=== PATIENT | female | born 1945 | race Caucasian/White ===

== ENCOUNTER 2017-08-11 09:07 | Emergency (ER) | payer BC, MEDICARE, SELFPAY | END 2017-08-11 10:06 | disposition home or self-care (01) | PROVIDERS: Family Provider Internal Medicine Adolescent Medicine; PCP Internal Medicine Adolescent Medicine; Referring Provider Internal Medicine Adolescent Medicine | DX: M10.9 Gout, unspecified (principal); I10 Essential (primary) hypertension; Z85.828 Personal history of other malignant neoplasm of skin; Z86.19 Personal history of other infectious and parasitic diseases; Z79.82 Long term (current) use of aspirin; Z79.899 Other long term (current) drug therapy | CPT/HCPCS: 99201 ==

== ENCOUNTER → 2017-10-04 12:05 | Outpatient (CLI) | payer BC, MEDICARE, SELFPAY ==
--- NOTE | 2017-10-04 12:18 | XR_ITS ---
XR hip RT 2-3V w/pelvis HISTORY: Right hip pain ITS.REASON: OA BILAT HIP, TROCHANTERIC BURSITIS ORDERING PHYSICIAN: Dang Arora PATIENT AGE: 72 years COMPARISON: None FINDINGS: No fracture or dislocation is evident. No significant degenerative change. No lytic or blastic change. Unremarkable soft tissues IMPRESSION: Negative right hip
--- NOTE | 2017-10-04 12:18 | XR_ITS ---
XR hip LT 2-3V w/pelvis HISTORY: Left hip pain ITS.REASON: OA BILAT HIP, TROCHANTERIC BURSITIS ORDERING PHYSICIAN: Dang Arora PATIENT AGE: 72 years COMPARISON: None FINDINGS: There is slight decrease in the joint space medially with minimal osteosclerosis of the acetabulum consistent with mild osteoarthritis. No fracture or dislocation. No lytic or blastic change. IMPRESSION: Mild osteoarthritis of the left hip
== END ==
PROVIDERS: PCP Internal Medicine Adolescent Medicine; Visit Provider Nurse Practitioner Family
DX: M70.61 Trochanteric bursitis, right hip (principal); M16.0 Bilateral primary osteoarthritis of hip
CPT/HCPCS: 73502

== ENCOUNTER → 2017-10-22 11:27 | Outpatient (CLI) | payer BC, MEDICARE, SELFPAY ==
--- NOTE | 2017-10-22 11:37 | XR_ITS ---
XR humerus RT, XR shoulder RT min 2V Ordering Physician: Mark Lozada MD Patient Age: 72 years: Female HISTORY: Pain and swelling right upper extremity. Pain 3 days. TECHNIQUE: 2 view humerus COMPARISON :None RIGHT HUMERUS 2 view The humerus is intact. The shaft is well visualized and normal. Today's image set includes a left shoulder... With this the humeral head and neck appear intact with only scant degenerative change. Soft tissues unremarkable ==IMPRESSION: ...... Left humerus in intact. No fracture RIGHT SHOULDER region . no fracture nor dislocation right shoulder. The glenohumeral joint and AC joint appear intact. Humeral head and neck with no fracture. Small round lucent area likely reflects subchondral cystic changes at the base/V humeral head. These reflect minor early degenerative changes and impingement upper normal markings. Accentuated markings Throughout the right lung with a most likely reflecting suboptimal inspiration rather than mild CHF ==IMPRESSION...... No acute fracture or subluxation right shoulder. Minor degenerative changes
--- NOTE | 2017-10-22 11:44 | NVE_ITS ---
Venous Exam Indications: 729.5 Pain in limb. 729.81 Swelling of limb. IMPRESSIONS No evidence of deep or superficial vein thrombosis involving the veins of the right upper extremity History: Right upper extremity pain. Swelling in the right upper extermity. PMH: Deep vein thrombosis. Pulmonary embolus. Hx of DVT/PE in 2006. Currently taking Plavix daily. Right upper extremity venous duplex. Doppler flow study including spectral analysis, color and diaz scale imaging. Location: Vascular laboratory. Patient status: Outpatient. Tables: Venous flow and imaging: + + + Location Flow properties + + + Right internal jugular Normal phasicity; spontaneous; compressible + + + Right subclavian Normal phasicity; spontaneous; normal augmentation; compressible + + + Right axillary Normal phasicity; spontaneous; normal augmentation; compressible + + + Right brachial Normal phasicity; spontaneous; normal augmentation; compressible + + + Right cephalic Normal phasicity; spontaneous; normal augmentation; compressible + + + Right basilic Normal phasicity ; spontaneous; normal augmentation; compressible + + + Right radial Compressible + + + Right ulnar Compressible + + + (Report amended ) Electronically signed by: Macario Aguilera [id number]
== END ==
PROVIDERS: PCP Internal Medicine Adolescent Medicine; Visit Provider Internal Medicine Adolescent Medicine
DX: M79.601 Pain in right arm (principal); M79.89 Other specified soft tissue disorders
CPT/HCPCS: 73030; 73060; 93971

== ENCOUNTER → 2017-12-18 08:43 | Outpatient (CLI) | payer BC, MEDICARE, SELFPAY ==
--- NOTE | 2017-12-18 09:05 | MR_ITS ---
MR head/brain wo/w con HISTORY: Dizziness, tinnitus, bilateral ear hearing loss left worse than right ITS.REASON: to include head and temporal bones/ r/o neuroma ORDERING PHYSICIAN: Isaiah Campos MD PATIENT AGE: 72 years COMPARISON: 02/25/2014 TECHNIQUE: Standard multiplanar multiecho sequences are performed without and with gadolinium enhancement . The exam is supplemented with thin section axial T2-weighted images along with thin section axial and coronal pre and post enhanced T1 weighted images. FINDINGS: No midline shift, mass effect, intracranial hemorrhage, or hydrocephalus. Nonspecific periventricular and subcortical T2 white matter hyperintensities consistent mild ischemic gliotic change from microvascular disease. No evidence of acute infarction. No enhancing lesions are evident. The pituitary, optic chiasm, corpus callosum, and craniocervical junction is unremarkable.. Dedicated images of the cerebellopontine angle show unremarkable nerve VII and VIII complexes. No CP angle mass evident. No abnormal enhancement at the CP angle. There is a small amount of fluid signal intensity once again noted in the right petrous bone as previously described and may represent a small cholesterol granuloma. No abnormal enhancement is evident at this region. This is not significantly changed. No sinus air-fluid level or mastoid effusion is evident. IMPRESSION: 1. No evidence of cerebellopontine angle mass or abnormal enhancement. 2. Small loculated fluid collection in the right petrous bone similar to the previous exam measuring 14 x 8 mm. Possibly related to cholesterol granuloma of the petrous bone as an incidental finding. 3. Essentially negative MRI of the brain without and with contrast with attention to the cerebellopontine angles
== END ==
PROVIDERS: Family Provider Internal Medicine Adolescent Medicine; PCP Internal Medicine Adolescent Medicine; Visit Provider Otolaryngology
DX: R42 Dizziness and giddiness (principal); H93.19 Tinnitus, unspecified ear
CPT/HCPCS: 36415; 70553; 80050; 82565; 84520; A9576

== ENCOUNTER → 2018-03-04 09:07 | Outpatient (CLI) | payer BC, MEDICARE, SELFPAY ==
--- NOTE | 2018-03-04 09:08 | CI_ITS ---
Cerebrovascular Exam Indications: 780.4 Dizziness and giddiness. 780.2 Syncope and collapse. IMPRESSIONS 1. The bilateral vertebral arteries are patent with normal antegrade flow. 2. Study suggests less than 20% stenosis involving the right internal carotid artery and the left internal carotid artery. History: Coronary artery disease. Risk factors: Hypertension. Hyperlipidemia. Carotid duplex study. Complete study and Doppler flow study including spectral analysis, color and diaz scale imaging. Height: Height: 175.3cm. Height: 69in. Weight: Weight: 88.9kg. Weight: 195.6lb. Body mass index: BMI: 28.9kg/m^2. Body surface area: BSA: 2.1m^2. Location: Vascular laboratory. Patient status: Outpatient. Tables: Arterial flow: + +--------+--------+ Location V sys V ed + +--------+--------+ Right CCA - proximal 66.8cm/s 11.8cm/s + +--------+--------+ Right CCA - distal 63.6cm/s 15.7cm/s + +--------+--------+ Right ECA 93.5cm/s -------- + +--------+--------+ Right ICA - proximal 61.3cm/s 18.1cm/s + +--------+--------+ Right ICA - mid 56.9cm/s 18.3cm/s + +--------+--------+ Right ICA - distal 73.9cm/s 25.1cm/s + +--------+--------+ Right vertebral 43.2cm/s -------- + +--------+--------+ Left CCA - proximal 67.6cm/s 15.7cm/s + +--------+--------+ Left CCA - distal 70.7cm/s 22cm/s + +--------+--------+ Left ECA -89cm/s -------- + +--------+--------+ Left ICA - proximal 48.2cm/s 13.3cm/s + +--------+--------+ Left ICA - mid 56.2cm/s 19.1cm/s + +--------+--------+ Left ICA - distal 80.9cm/s 28.1cm/s + +--------+--------+ Left vertebral 63.6cm/s -------- + +--------+--------+ Velocity ratios: + + + + + + Right, V sys Right, V ed Left, V sys Left, V ed + + + + + + Max ICA/dist CCA 1.16 1.6 1.14 1.28 + + + + + + (Report amended ) Electronically signed by: Aki Donovan [id number]
== END ==
PROVIDERS: Family Provider Internal Medicine Adolescent Medicine; PCP Internal Medicine Adolescent Medicine; Visit Provider Internal Medicine
DX: R06.09 Other forms of dyspnea (principal); R09.89 Other specified symptoms and signs involving the circulatory and respiratory systems; R94.31 Abnormal electrocardiogram [ECG] [EKG]; I20.9 Angina pectoris, unspecified; Z95.5 Presence of coronary angioplasty implant and graft; R42 Dizziness and giddiness; I25.118 Atherosclerotic heart disease of native coronary artery with other forms of angina pectoris
CPT/HCPCS: 93880

== ENCOUNTER → 2018-03-11 07:07 | Outpatient (CLI) | payer BC, MEDICARE, SELFPAY ==
--- NOTE | 2018-03-11 07:08 | NM_ITS ---
History and Indications: Coronary artery disease previous ventricular cystectomy, hypertension, hyperlipidemia, family history, chest pain, shortness of breath, fatigue and abnormal EKG. Procedure: Patient received a 0.4 mg of Lexiscan, resting heart rate was 57 bpm, resting blood pressure 115/67, with Lexiscan maximum heart rate achieved was 88 bpm which is less than 85% of the maximum predicted heart rate and a blood pressure was 111/68. With Lexiscan patient under shortness of breath. Electrocardiogram: Resting electrocardiogram showed sinus bradycardia, with Lexiscan there is less than 1.[address] segment depression noted from the baseline EKG. The EKG portion of the Lexiscan Myoview is nondiagnostic. Cardiac stress and resting SPECT images: Cardiac stress and rest SPECT images were obtained using technetium 99 Myoview 30.4 mCi at stress and 10.2 mCi at rest. Gated SPECT further analysis of segmental wall motion and calculation of the ejection fraction also done. Cardiac stress and rest SPECT images show decreased tracer activity in the anterior and anteroseptal wall which improves on the resting images suggestive of reversible ischemia, computer derived ejection fraction is over 65% with no obvious regional wall motion abnormality, right ventricle is normal size and contractility. Conclusion: 1. The EKG portion of the Lexiscan Myoview is nondiagnostic. 2. Scintigraphic evidence of reversible ischemia involving the anteroseptal and inferior wall. Computer derived ejection fraction is over 65% with no obvious regional wall motion abnormality, right ventricle is normal size and contractility. 3. Abnormal Lexiscan Myoview study.
--- NOTE | 2018-03-11 10:27 | HMH.ITSHM ---
metoprolol plavix trostatin buprione synthyroid asa
== END ==
PROVIDERS: Family Provider Internal Medicine Adolescent Medicine; PCP Internal Medicine Adolescent Medicine; Visit Provider Internal Medicine
DX: R06.09 Other forms of dyspnea (principal); R42 Dizziness and giddiness; R09.89 Other specified symptoms and signs involving the circulatory and respiratory systems; R94.31 Abnormal electrocardiogram [ECG] [EKG]; I20.9 Angina pectoris, unspecified; I25.118 Atherosclerotic heart disease of native coronary artery with other forms of angina pectoris; Z95.5 Presence of coronary angioplasty implant and graft
CPT/HCPCS: 78452; 93017; A9502; J2785

== ENCOUNTER → 2018-03-22 11:25 | Outpatient (CLI) | payer BC, SELFPAY ==
[2018-03-22 12:35] LABS: Anion Gap 10.5 mEq/L (5-15); Blood Urea Nitrogen 22 mg/dL (7-18); Calcium 9.1 mg/dL (8.5-10.1); Carbon Dioxide 31 mmol/L (21.0-32.0); Chloride 105 mmol/L (98-107); Creatinine,Serum 1.57 mg/dL (0.55-1.02); Estimated Glomerular Filt Rate 32 ml/min (>60); GFR (African American) 39 ML/MIN (>60); Glucose 88 mg/dL (74-106); Potassium 4.5 mmoL/L (3.5-5.1); Sodium 142 mmol/L (136-145)
== END ==
PROVIDERS: Visit Provider Internal Medicine
DX: I51.9 Heart disease, unspecified (principal); R06.09 Other forms of dyspnea; R60.9 Edema, unspecified; I25.10 Atherosclerotic heart disease of native coronary artery without angina pectoris; G47.33 Obstructive sleep apnea (adult) (pediatric)
CPT/HCPCS: 36415; 80048

== ENCOUNTER → 2018-03-27 10:38 | Outpatient (CLI) | payer BC, SELFPAY ==
--- NOTE | 2018-03-27 10:41 | CA_ITS ---
PROCEDURE: 2-D M-mode and color Doppler study INDICATIONS FOR THE TEST: Chest pain COPD Heart Murmur Tobacco Smoking Palpitations Fatigue Syncope Edema+ Hypertension+Diabetes Mellitus Rheumatic Fever SOB RODRIGUEZ+Obesity Hyperlipidemia Family History HD Additional History CAD, CHASITY PATIENT INFORMATION HEIGHT: WEIGHT: GENDER: Female B/P: 2-D/M-MODE INTERPRETATION: 2-D MEASUREMENTS OBSERVED VALUES IN CMS Right Ventricular Dimension (RVDd) 2.6 Interventricular Septum (Thickness)(IVsd) 1.2 Left Ventricular Internal Dimensions(LVIDd) 5.6 Left Ventricular Posterior Wall (Thickness)(LVPWd) 1.0 Aortic Root 3.3 Aortic Cusp Separation 1.9 Left Atrial Dimensions (LAD) 3.6 2D 1. The left atrium is mildly enlarged, left ventricle is normal size, there is mild concentric left ventricular hypertrophy, visually estimated ejection fraction 55% with no obvious regional wall motion abnormality. 2. The right atrium and right ventricle are normal size and contractility. 3. The aortic valve is thickened and calcified leaflet can't display good mobility. 4. The mitral and tricuspid valvular grossly normal. 5. The pulmonic valve is poorly visualized. 6. No significant pericardial effusion noted. DOPPLER INTERROGATION: Doppler interrogation of the aortic, mitral and tricuspid valvular presence of trace aortic, mild mitral and tricuspid regurgitation, calculated right ventricular systolic pressure is 44 mmHg consistent with moderate pulmonary hypertension, grade 1 diastolic dysfunction seen with tissue Doppler evidence of raised left atrial pressure. CONCLUSION: 1. Mildly enlarged left atrium, normal left ventricular size, mild concentric left ventricular hypertrophy, visually estimated ejection fraction 55% with no obvious regional wall motion abnormality, grade 1 diastolic dysfunction seen with tissue Doppler evidence of raised left atrial pressure. 2. Thickened and calcified aortic valve without aortic stenosis, there is trace aortic insufficiency. 3. Mild mitral and tricuspid regurgitation, calculated right ventricular systolic pressure is 44 mmHg consistent with moderate pulmonary hypertension 4. No significant pericardial effusion noted.
== END ==
PROVIDERS: Family Provider Internal Medicine Adolescent Medicine; PCP Internal Medicine Adolescent Medicine; Visit Provider Internal Medicine Cardiovascular Disease
DX: I25.10 Atherosclerotic heart disease of native coronary artery without angina pectoris (principal)
CPT/HCPCS: 93306

== ENCOUNTER → 2018-03-29 12:43 | Outpatient (CLI) | payer BC, SELFPAY ==
[2018-03-29 14:46] LABS: Anion Gap 12.2 mEq/L (5-15); Blood Urea Nitrogen 22 mg/dL (7-18); Calcium 9.1 mg/dL (8.5-10.1); Carbon Dioxide 25 mmol/L (21.0-32.0); Chloride 106 mmol/L (98-107); Creatinine,Serum 1.35 mg/dL (0.55-1.02); Estimated Glomerular Filt Rate 39 ml/min (>60); GFR (African American) 47 ML/MIN (>60); Glucose 99 mg/dL (74-106); Potassium 4.2 mmoL/L (3.5-5.1); Sodium 139 mmol/L (136-145)
== END ==
PROVIDERS: Visit Provider Internal Medicine Cardiovascular Disease
DX: I51.9 Heart disease, unspecified (principal); I25.10 Atherosclerotic heart disease of native coronary artery without angina pectoris; R60.9 Edema, unspecified; R06.09 Other forms of dyspnea
CPT/HCPCS: 36415; 80048; 83880

== ENCOUNTER → 2018-04-12 15:01 | Outpatient (CLI) | payer BC, SELFPAY ==
[2018-04-12 15:59] LABS: Anion Gap 15.8 mEq/L (5-15); Blood Urea Nitrogen 15 mg/dL (7-18); Carbon Dioxide 26 mmol/L (21.0-32.0); Chloride 105 mmol/L (98-107); Creatinine,Serum 1.48 mg/dL (0.55-1.02); Estimated Glomerular Filt Rate 35 ml/min (>60); GFR (African American) 42 ML/MIN (>60); Glucose 138 mg/dL (74-106); Potassium 3.8 mmoL/L (3.5-5.1); Sodium 143 mmol/L (136-145)
== END ==
PROVIDERS: Visit Provider Internal Medicine Cardiovascular Disease
DX: I25.118 Atherosclerotic heart disease of native coronary artery with other forms of angina pectoris (principal); I51.9 Heart disease, unspecified; R06.09 Other forms of dyspnea; R00.1 Bradycardia, unspecified; I27.20 Pulmonary hypertension, unspecified
CPT/HCPCS: 36415; 80048

== ENCOUNTER → 2018-05-24 11:39 | Outpatient (CLI) | payer BC, SELFPAY ==
[2018-05-24 12:03] LABS: Basophils # 0.1 K/mm3 (0-0.2); Basophils % 1.1 % (0.1-2.0); Eosinophils # 0.4 K/mm3 (0.0-0.4); Eosinophils % 5.3 % (0.1-12.0); Hematocrit 40.4 % (37.0-47.0); Hemoglobin 12.8 g/dL (12.2-16.2); Lymphocytes # 1.3 K/mm3 (0.7-4.5); Lymphocytes % 16.4 K/mm3 (10-50); Mean Corpuscular HGB Conc 31.8 g/dL (31.8-35.4); Mean Corpuscular Hemoglobin 28.6 pg (27.0-31.2); Monocytes # 0.5 K/mm3 (0.1-1.0); Monocytes % 5.6 % (1.7-9.3); Neutrophils # 5.7 K/mm3 (1.8-7.8); Neutrophils % 71.6 % (37.0-80.0); Platelet Count 324 K/mm3 (142-424); Red Blood Count 4.48 M/mm3 (4.20-5.40); Red Cell Distribution Width 13.5 % (11.5-17.5)
[2018-05-24 13:20] LABS: Bilirubin,Direct 0.1 mg/dL (0.0-0.2)
[2018-05-24 13:23] LABS: Alanine Aminotransferase 24 U/L (12-78); Albumin Level 3.2 gm/dL (3.4-5.0); Albumin/Globulin Ratio 0.9 (1.1-1.8); Alkaline Phosphatase 171 U/L (46-116); Anion Gap 13.3 mEq/L (5-15); Aspartate Amino Transferase 25 U/L (15-37); Bilirubin,Total 0.5 mg/dL (0.2-1.0); Blood Urea Nitrogen 21 mg/dL (7-18); Calcium 9.1 mg/dL (8.5-10.1); Carbon Dioxide 27 mmol/L (21.0-32.0); Chloride 106 mmol/L (98-107); Creatinine,Serum 1.35 mg/dL (0.55-1.02); Estimated Glomerular Filt Rate 39 ml/min (>60); GFR (African American) 47 ML/MIN (>60); Globulin 3.7 gm/dl (1.3-3.2); Glucose 90 mg/dL (74-106); Potassium 4.3 mmoL/L (3.5-5.1); Sodium 142 mmol/L (136-145); Total Protein,Serum 6.9 gm/dL (6.4-8.2)
== END ==
PROVIDERS: Physician Assistant; Family Provider Internal Medicine Adolescent Medicine; PCP Internal Medicine Adolescent Medicine; Referring Provider Internal Medicine; Visit Provider Otolaryngology
DX: Z01.818 Encounter for other preprocedural examination (principal); H65.23 Chronic serous otitis media, bilateral; H90.3 Sensorineural hearing loss, bilateral
CPT/HCPCS: 36415; 80053; 82248; 85025; 93005

== ENCOUNTER → 2018-06-27 13:20 | Outpatient (CLI) | payer BC, SELFPAY ==
[2018-06-27 14:19] LABS: Basophils # 0.1 K/mm3 (0-0.2); Basophils % 1.8 % (0.1-2.0); Eosinophils # 0.3 K/mm3 (0.0-0.4); Hematocrit 36.1 % (37.0-47.0); Hemoglobin 12.6 g/dL (12.2-16.2); Lymphocytes # 1.3 K/mm3 (0.7-4.5); Lymphocytes % 23.5 K/mm3 (10-50); Mean Corpuscular Volume 88.7 fl (81-99); Mean Platelet Volume 7.9 fl (7.4-10.4); Monocytes # 0.3 K/mm3 (0.1-1.0); Neutrophils # 3.5 K/mm3 (1.8-7.8); Neutrophils % 63.9 % (37.0-80.0); Platelet Count 284 K/mm3 (142-424); Red Blood Count 4.07 M/mm3 (4.20-5.40); Red Cell Distribution Width 13.6 % (11.5-17.5); White Blood Count 5.5 K/mm3 (4.8-10.8)
[2018-06-27 15:47] LABS: Alanine Aminotransferase 20 U/L (12-78); Albumin Level 3.2 gm/dL (3.4-5.0); Albumin/Globulin Ratio 0.9 (1.1-1.8); Alkaline Phosphatase 190 U/L (46-116); Aspartate Amino Transferase 26 U/L (15-37); Bilirubin,Total 0.4 mg/dL (0.2-1.0); Blood Urea Nitrogen 18 mg/dL (7-18); Calcium 8.9 mg/dL (8.5-10.1); Carbon Dioxide 28 mmol/L (21.0-32.0); Chloride 107 mmol/L (98-107); Chol/HDL Ratio 2.4 (1-3.5); Cholesterol 134 mg/dL (140-200); Creatinine,Serum 1.43 mg/dL (0.55-1.02); Estimated Glomerular Filt Rate 36 ml/min (>60); GFR (African American) 44 ML/MIN (>60); Globulin 3.4 gm/dl (1.3-3.2); Glucose 85 mg/dL (74-106); HDL Cholesterol 55 mg/dL (29-89); LDL Cholesterol 55 mg/dL (0-130); Sodium 144 mmol/L (136-145); Total Protein,Serum 6.6 gm/dL (6.4-8.2); Triglycerides 121 mg/dL (30-200); VLDL Cholesterol 24 mg/dL (0-40)
== END ==
PROVIDERS: PCP Internal Medicine Adolescent Medicine; Visit Provider Internal Medicine Adolescent Medicine
DX: I25.119 Atherosclerotic heart disease of native coronary artery with unspecified angina pectoris (principal); E78.5 Hyperlipidemia, unspecified; N18.2 Chronic kidney disease, stage 2 (mild)
CPT/HCPCS: 36415; 80053; 80061; 85025

== ENCOUNTER → 2018-11-06 10:20 | Outpatient (CLI) | payer BC, SELFPAY ==
[2018-11-06 11:34] LABS: Basophils # 0.1 K/mm3 (0-0.2); Basophils % 1.6 % (0.1-2.0); Eosinophils # 0.3 K/mm3 (0.0-0.4); Eosinophils % 4.9 % (0.1-12.0); Hemoglobin 13.1 g/dL (12.2-16.2); Lymphocytes # 1.1 K/mm3 (0.7-4.5); Lymphocytes % 18.1 % (10-50); Mean Corpuscular HGB Conc 32.6 g/dL (31.8-35.4); Mean Corpuscular Hemoglobin 29.3 pg (27.0-31.2); Mean Corpuscular Volume 89.9 fl (81-99); Mean Platelet Volume 8.2 fl (7.4-10.4); Monocytes # 0.4 K/mm3 (0.1-1.0); Neutrophils # 4.2 K/mm3 (1.8-7.8); Neutrophils % 69.4 % (37.0-80.0); Platelet Count 277 K/mm3 (142-424); Red Blood Count 4.45 M/mm3 (4.20-5.40); Red Cell Distribution Width 13.5 % (11.5-17.5); White Blood Count 6.1 K/mm3 (4.8-10.8)
[2018-11-06 12:28] LABS: Alanine Aminotransferase 21 U/L (12-78); Albumin/Globulin Ratio 0.8 (1.1-1.8); Alkaline Phosphatase 209 U/L (46-116); Anion Gap 13.5 mEq/L (5-15); Aspartate Amino Transferase 26 U/L (15-37); Bilirubin,Total 0.3 mg/dL (0.2-1.0); Blood Urea Nitrogen 21 mg/dL (7-18); Calcium 8.7 mg/dL (8.5-10.1); Carbon Dioxide 26 mmol/L (21.0-32.0); Chloride 108 mmol/L (98-107); Chol/HDL Ratio 2.5 (1-3.5); Cholesterol 136 mg/dL (140-200); Creatinine,Serum 1.34 mg/dL (0.55-1.02); Estimated Glomerular Filt Rate 39 ml/min (>60); GFR (African American) 47 ML/MIN (>60); Globulin 3.6 gm/dl (1.3-3.2); Glucose 98 mg/dL (74-106); HDL Cholesterol 54 mg/dL (29-89); LDL Cholesterol 66 mg/dL (0-130); Potassium 4.5 mmoL/L (3.5-5.1); Sodium 143 mmol/L (136-145); Thyroid Stimulating Hormone 2.98 uIU/ml (0.358-3.740); Total Protein,Serum 6.6 gm/dL (6.4-8.2); Triglycerides 82 mg/dL (30-200); VLDL Cholesterol 16 mg/dL (0-40)
== END ==
PROVIDERS: Visit Provider Internal Medicine Adolescent Medicine
DX: E78.5 Hyperlipidemia, unspecified (principal); E03.9 Hypothyroidism, unspecified; N18.2 Chronic kidney disease, stage 2 (mild)
CPT/HCPCS: 36415; 80053; 80061; 84443; 85025

== ENCOUNTER → 2019-01-21 06:48 | Outpatient (CLI) | payer BC, SELFPAY ==
--- NOTE | 2019-01-21 06:51 | NM_ITS ---
CARDIOLITE SPECT MYOCARDIAL PERFUSION LEXISCAN, REST AND STRESS: [facility] REVIEW QGS EF AND WALL MOTION EVALUATION: QPS - PERFUSION EVALUATION HISTORY: Chest pain, SOB, Abnormal EKG, HTN, Family history, CAD DOSE: 10.39 mCi technetium 99m mibi intravenously at rest followed by 31.6 mCi technetium 99m mibi following the intravenous ministration of 0.4 mg of Lexiscan. Resting blood pressure is 127/64. Stress blood pressure 108/62. FINDINGS: Ejection fraction is calculated to be 67%. Stress images reveal decreased activity in the anterior wall while rest images reveal slightly improved activity IMPRESSION: Normal ejection fraction with normal wall motion. Clinical correlation is advised. This test is most consistent with breast attenuation however the possibility of mild anterior ischemia does exist.
--- NOTE | 2019-01-21 07:20 | HMH.ITSHM ---
Current Home Medications as stated by this patient Naty Avila or vendor representatives. []ATORVASTATIN CLOPIDOGREL METOPROLOL PAXIL OCYCLOVERE SYNTHROID ASA LASIX MILK THISTLE VITAMIN D VITAMIN B
== END ==
PROVIDERS: PCP Internal Medicine Adolescent Medicine; Visit Provider Internal Medicine Cardiovascular Disease
DX: I25.118 Atherosclerotic heart disease of native coronary artery with other forms of angina pectoris (principal); I27.20 Pulmonary hypertension, unspecified; R06.09 Other forms of dyspnea; R07.9 Chest pain, unspecified; R60.9 Edema, unspecified
CPT/HCPCS: 78452; 93017; A9502; J2785

== ENCOUNTER 2019-01-26 13:28 | Emergency (ER) | payer BC, SELFPAY ==
[2019-01-26 13:50] VITALS: BP 137/73; PULSE 69; RESP 18; TEMP 36.6; O2SAT 97; BMI 27.7
--- NOTE | 2019-01-26 14:13 | HMH.EDUTC ---
[facility] [place] Clinical Impression: Gout attack Qualifiers: Gout site: foot Gout etiology: unspecified cause Laterality: left Qualified Code(s): M10.9 - Gout, unspecified Disposition: Home, Self-Care Condition on Discharge: Good Instructions: Gout (Alternative Therapy), Gout, DI for Gout Additional Instructions: Take medication as prescribed for gout Watch area and avoid red meat or gout triggers Watch for worsening of symptoms Return if needed Follow up with family doctor if needed or no improvement Straight to ER if any life threatening symptoms Referrals: Mark Lozada MD [Primary Care Provider] - As needed Time of Disposition: 15:00 Medical Decision Making - Nelson Inquiry Pt receiving controlled substance: No Nelson was queried for this patient: No Vital Signs: 01/26/19 13:50 Temperature 97.9 F Temperature Source Oral Pulse Rate [Right Brachial] 69 Respiratory Rate 18 Blood Pressure [Right Arm] 137/73 Blood Pressure Mean [Right Arm] 94 Blood Pressure Source [Right Arm] Automatic Cuff Blood Pressure Position [Right Arm] Sitting 02 Sat by Pulse Oximetry 97 Oxygen Delivery Method Room Air - Lab Data Lab Results 01/26/19 14:10: Uric Acid 10.7 H - Reevaluation(s) Time: 14:56 Reevaluation #1: Uric acid still not back called lab advised almost finished Time: 15:08 Reevaluation #3: Uric acid back, elevated Patient advised that she had colchicine at home for gout [facility] [place] - General Stated complaint: foot pain Time Seen by Provider: 01/26/19 14:13 Mode of Arrival: Family Vehicle Source of Information: Patient Limitations: No Limitations Description of Symptoms (Recalled from Triage Doc. by RN): C/O LEFT FOOT PAIN AND REDNESS X 3 DAYS HEENT Symptoms (Recalled from RN notes): No Resp Symptoms (Recalled from RN notes): No Skin Symptoms (Recalled from RN notes): No MS Symptoms (Recalled from RN notes): Yes Functional Status (Recalled from RN notes): N/A - History of Present Illness Provider Complaint: Patient states that she has been having redness, swelling and pain in the top of her left foot for about 3 days States that she has tried warm compress and cold compress but nothing helped States that she did have a recent gout flare about 3 weeks ago in the other foot not sure if that is what it could be or not - Related Data Home Medications Medication Instructions Recorded Confirmed acetaminophen 300 mg-codeine 30 mg 1 tab PO NEEDED PRN 5 Days #20 11/19/17 01/10/19 tablet lysaguqfzh-itptpaakayumq-sdfluelb 1 tab PO NEEDED PRN 7 Days #30 11/19/17 01/10/19 50 mg-325 mg-40 mg tablet esomeprazole magnesium 20 mg 20 mg PO DAILY 30 Days #30 11/19/17 01/10/19 capsule,delayed release levothyroxine 50 mcg tablet 50 mcg PO DAILY 30 Days #30 11/19/17 01/10/19 nitroglycerin 0.4 mg sublingual 0.4 mg SUBLINGUAL NEEDED PRN 30 11/19/17 01/10/19 tablet Days #25 metoprolol tartrate 25 mg tablet 12.5 mg PO BID 30 Days #30 tab 02/25/18 01/10/19 PARoxetine HCl [Paxil] 40 mg PO DAILY 05/30/18 01/10/19 milk thistle 500 mg capsule 500 mg PO BID 07/11/18 01/10/19 B-complex with vitamin C capsule 1 cap PO DAILY 01/10/19 01/10/19 aspirin 81 mg tablet,delayed 81 mg PO DAILY 01/10/19 01/10/19 release cholecalciferol (vitamin D3) 1,000 1,000 unit PO DAILY 01/10/19 01/10/19 unit capsule furosemide 20 mg tablet 20 mg PO Q OTHER DAY tab 01/10/19 01/10/19 furosemide 40 mg tablet 40 mg PO Q OTHER DAY 30 Days #15 01/10/19 01/10/19 tab Previous Rx's Medication Instructions Recorded clopidogrel 75 mg tablet 75 mg PO DAILY #90 tab 10/28/18 atorvastatin 40 mg tablet 40 mg PO DAILY 30 Days #30 11/06/18 colchicine 0.6 mg tablet 0.6 mg PO NEEDED PRN 5 Days #15 12/02/18 famotidine 10 mg tablet 10 mg PO QHS #30 tab 01/10/19 Allergies Allergy/AdvReac Type Severity Reaction Status Date / Time azithromycin [AZITHROMYCIN] Allergy Severe SOA Verified 01/10/19 10:07 levofloxacin [LE
--- NOTE | 2019-01-26 14:17 | ED_ITS ---
[facility] [place] Disposition Clinical Impression: Gout attack Qualifiers: Gout site: foot Gout etiology: unspecified cause Laterality: left Qualified Code(s): M10.9 - Gout, unspecified Disposition: Home, Self-Care Condition on Discharge: Good Instructions: Gout (Alternative Therapy), Gout, DI for Gout Additional Instructions: Take medication as prescribed for gout Watch area and avoid red meat or gout triggers Watch for worsening of symptoms Return if needed Follow up with family doctor if needed or no improvement Straight to ER if any life threatening symptoms Referrals: Mark Lozada MD [Primary Care Provider] - As needed Time of Disposition: 15:00 Medical Decision Making - Nelson Inquiry Pt receiving controlled substance: No Nelson was queried for this patient: No Vital Signs: 01/26/19 13:50 Temperature 97.9 F Temperature Source Oral Pulse Rate [Right Brachial] 69 Respiratory Rate 18 Blood Pressure [Right Arm] 137/73 Blood Pressure Mean [Right Arm] 94 Blood Pressure Source [Right Arm] Automatic Cuff Blood Pressure Position [Right Arm] Sitting 02 Sat by Pulse Oximetry 97 Oxygen Delivery Method Room Air - Lab Data Lab Results 01/26/19 14:10: Uric Acid 10.7 H - Reevaluation(s) Time: 14:56 Reevaluation #1: Uric acid still not back called lab advised almost finished Time: 15:08 Reevaluation #3: Uric acid back, elevated Patient advised that she had colchicine at home for gout [facility] [place] HPI - General Stated complaint: foot pain Time Seen by Provider: 01/26/19 14:13 Mode of Arrival: Family Vehicle Source of Information: Patient Limitations: No Limitations Description of Symptoms (Recalled from Triage Doc. by RN): C/O LEFT FOOT PAIN AND REDNESS X 3 DAYS HEENT Symptoms (Recalled from RN notes): No Resp Symptoms (Recalled from RN notes): No Skin Symptoms (Recalled from RN notes): No MS Symptoms (Recalled from RN notes): Yes Functional Status (Recalled from RN notes): N/A - History of Present Illness Provider Complaint: Patient states that she has been having redness, swelling and pain in the top of her left foot for about 3 days States that she has tried warm compress and cold compress but nothing helped States that she did have a recent gout flare about 3 weeks ago in the other foot not sure if that is what it could be or not - Related Data Home Medications Medication Instructions Recorded Confirmed acetaminophen 300 mg-codeine 30 mg 1 tab PO NEEDED PRN 5 Days #20 11/19/17 01/10/19 tablet pzngjqqxay-amwimpsxhvqqy-ronhufou 1 tab PO NEEDED PRN 7 Days #30 11/19/17 01/10/19 50 mg-325 mg-40 mg tablet esomeprazole magnesium 20 mg 20 mg PO DAILY 30 Days #30 11/19/17 01/10/19 capsule,delayed release levothyroxine 50 mcg tablet 50 mcg PO DAILY 30 Days #30 11/19/17 01/10/19 nitroglycerin 0.4 mg sublingual 0.4 mg SUBLINGUAL NEEDED PRN 30 11/19/17 01/10/19 tablet Days #25 metoprolol tartrate 25 mg tablet 12.5 mg PO BID 30 Days #30 tab 02/25/18 01/10/19 PARoxetine HCl [Paxil] 40 mg PO DAILY 05/30/18 01/10/19 milk thistle 500 mg capsule 500 mg PO BID 07/11/18 01/10/19 B-complex with vitamin C capsule 1 cap PO DAILY 01/10/19 01/10/19 aspirin 81 mg tablet,delayed 81 mg PO DAILY 01/10/19 0
[2019-01-26 14:49] LABS: Uric Acid 10.7 mg/dL (2.6-7.2)
[2019-01-26 16:04] VITALS: BP 137/73; PULSE 69; RESP 18; TEMP 36.6; O2SAT 97
== END 2019-01-26 16:06 | disposition home or self-care (01) ==
PROVIDERS: Emergency Provider Nurse Practitioner; PCP Internal Medicine Adolescent Medicine
DX: M10.072 Idiopathic gout, left ankle and foot (principal); F41.8 Other specified anxiety disorders; K21.9 Gastro-esophageal reflux disease without esophagitis; I25.10 Atherosclerotic heart disease of native coronary artery without angina pectoris; Z88.5 Allergy status to narcotic agent; Z79.899 Other long term (current) drug therapy
CPT/HCPCS: 84550; 99201

== ENCOUNTER → 2019-03-17 11:04 | Outpatient (POV) | payer BC, SELFPAY | PROVIDERS: PCP Nurse Practitioner Family; Referring Provider Internal Medicine; Visit Provider Nurse Practitioner Family | DX: Z00.00 Encounter for general adult medical examination without abnormal findings (principal) ==

== ENCOUNTER → 2019-05-21 14:41 | Outpatient (CLI) | payer BC, SELFPAY | PROVIDERS: PCP Internal Medicine Adolescent Medicine; Visit Provider Internal Medicine Cardiovascular Disease | DX: G47.33 Obstructive sleep apnea (adult) (pediatric) (principal); R40.0 Somnolence; R06.02 Shortness of breath; I11.9 Hypertensive heart disease without heart failure; I25.118 Atherosclerotic heart disease of native coronary artery with other forms of angina pectoris | CPT/HCPCS: 95806 ==

== ENCOUNTER → 2019-06-13 10:58 | Outpatient (CLI) | payer BC, MEDICARE, SELFPAY ==
--- NOTE | 2019-06-13 11:05 | XR_ITS ---
PROCEDURE: XR ANKLE WT BEARING RT MIN 3V CLINICAL INDICATION: pain, patient fell 3 weeks ago COMPARISON: No exams were available for comparison FINDINGS: The medial and lateral malleolus appear intact. There is tip of the medial malleolus resulting mild focal narrowing of the ankle mortise at this location. Otherwise the ankle mortise appears normal. There is no significant soft tissue swelling. There is a small spur of the calcaneus at the insertion of the plantar tendon. IMPRESSION: Minor spurring of the medial malleolus, no acute fracture seen Dictated by: Dr. Ricardo Pang MD 06/13/2019 13:[address] Ricardo Pang MD in [place] 06/13/2019 13:08
--- NOTE | 2019-06-13 11:05 | XR_ITS ---
PROCEDURE: XR FOOT WT BEARING RT 3V CLINICAL INDICATION: pain COMPARISON: No exams were available for comparison FINDINGS: No fracture or dislocation. No lytic or blastic change. There is normal mineralization. The joint spaces are well-preserved. No significant degenerative/arthritic changes. No erosive changes evident. Other findings:Small calcaneal plantar spur noted. The plantar arch is normal IMPRESSION: No acute findings. Dictated by: Dr. Ricardo Pang MD 06/13/2019 13:[address] Ricardo Pang MD in [place] 06/13/2019 13:09
--- NOTE | 2019-06-13 11:05 | XR_ITS ---
PROCEDURE: XR ANKLE WT BEARING LT MIN 3V CLINICAL INDICATION: pain, fell 3 weeks ago There is minor spurring of the tip of the medial malleolus. The ankle mortise appears normal. There is a small spur of the calcaneus at the insertion of the plantar tendon. There is no significant soft tissue swelling. COMPARISON: Right ankle same date FINDINGS: The medial and lateral malleolus appear intact with no evidence of recent or old fracture. IMPRESSION: No acute findings. Dictated by: Dr. Ricardo Pang MD 06/13/2019 13:[address] Ricardo Pang MD in [place] 06/13/2019 13:28
--- NOTE | 2019-06-13 11:05 | XR_ITS ---
PROCEDURE: XR FOOT WT BEARING LT 3V CLINICAL INDICATION: pain COMPARISON: XR FOOT WT BEARING RT 3V from 06/13/2019 FINDINGS: There is mild sclerosis and narrowing of the 1st 2nd and 3rd tarsometatarsal articulations likely due to osteoarthritic change. There is mild splaying between the proximal phalanx of the 2nd toe and proximal phalanx of the 3rd toe, this may be secondary to a Dolan's neuroma at this location in view the patient's history. There is a small spur of the calcaneus at the insertion of the plantar tendon. The plantar arch is normal. IMPRESSION: Probable osteoarthritic changes as described, no acute osseous pathology noted Dictated by: Dr. Ricardo Pang MD 06/13/2019 13:[address] Ricardo Pang MD in [place] 06/13/2019 13:36
== END ==
PROVIDERS: PCP Internal Medicine Adolescent Medicine; Visit Provider Podiatrist
DX: M79.672 Pain in left foot (principal); M79.671 Pain in right foot; M25.571 Pain in right ankle and joints of right foot; M25.572 Pain in left ankle and joints of left foot
CPT/HCPCS: 73610; 73630

== ENCOUNTER → 2020-03-26 09:48 | Outpatient (CLI) | payer MEDICARE, SELFPAY ==
[2020-03-26 10:15] LABS: Basophils # 0.1 K/mm3 (0-0.2); Basophils % 1.4 % (0.1-2.0); Eosinophils # 0.4 K/mm3 (0.0-0.4); Eosinophils % 7.4 % (0.1-12.0); Hematocrit 40.3 % (37.0-47.0); Hemoglobin 13.6 g/dL (12.2-16.2); Lymphocytes # 1.1 K/mm3 (0.7-4.5); Lymphocytes % 18.2 % (10-50); Mean Corpuscular HGB Conc 33.7 g/dL (31.8-35.4); Mean Corpuscular Hemoglobin 30.8 pg (27.0-31.2); Mean Corpuscular Volume 91.3 fl (81-99); Mean Platelet Volume 8.9 fl (7.4-10.4); Monocytes # 0.3 K/mm3 (0.1-1.0); Monocytes % 5.6 % (1.7-9.3); Neutrophils # 3.9 K/mm3 (1.8-7.8); Neutrophils % 67.3 % (37.0-80.0); Platelet Count 230 K/mm3 (142-424); Red Blood Count 4.41 M/mm3 (4.20-5.40); Red Cell Distribution Width 13.4 % (11.5-17.5); White Blood Count 5.9 K/mm3 (4.8-10.8)
[2020-03-26 10:59] LABS: Chloride 104 mmol/L (98-107); Sodium 139 mmol/L (136-145)
[2020-03-26 11:00] LABS: Potassium 4.4 mmoL/L (3.5-5.1)
[2020-03-26 11:02] LABS: Alanine Aminotransferase 13 U/L (12-78); Alkaline Phosphatase 131 U/L (38-126); Anion Gap 12.4 mEq/L (5-15); Aspartate Amino Transferase 34 U/L (14-36); Bilirubin,Total 0.4 mg/dl (0.2-1.3); Blood Urea Nitrogen 16 mg/dl (7-17); Carbon Dioxide 27 mmol/L (22.0-30.0); Cholesterol 125 mg/dl (140-200); Estimated Glomerular Filt Rate 40 ml/min (>60); GFR (African American) 49 ML/MIN (>60); Triglycerides 74 mg/dl (30-150); VLDL Cholesterol 15 mg/dL (0-40)
[2020-03-26 11:03] LABS: Albumin Level 3.4 g/dl (3.5-5.0); Albumin/Globulin Ratio 1.2 (1.1-1.8); Calcium 9.1 mg/dl (8.4-10.2); Chol/HDL Ratio 2.4 (1-3.5); Globulin 2.8 g/dL (1.3-3.2); Glucose 94 mg/dl (74-100); HDL Cholesterol 52 mg/dl (40-60); Total Protein,Serum 6.2 g/dl (6.3-8.2)
[2020-03-26 11:14] LABS: Direct LDL Cholesterol 53.58 mg/dL (100-129)
[2020-03-26 11:34] LABS: Thyroid Stimulating Hormone 2.35 uIU/mL (0.465-4.68)
[2020-03-26 18:05] LABS: Uric Acid 7.8 mg/dl (2.5-6.2)
== END ==
PROVIDERS: Visit Provider Internal Medicine Adolescent Medicine
DX: E03.9 Hypothyroidism, unspecified (principal); E78.5 Hyperlipidemia, unspecified; I25.119 Atherosclerotic heart disease of native coronary artery with unspecified angina pectoris
CPT/HCPCS: 36415; 80053; 80061; 84443; 84550; 85025

== ENCOUNTER 2020-04-15 10:23 | Emergency (ER) | payer MEDICARE, SELFPAY ==
[2020-04-15 10:25] VITALS: BP 105/53; PULSE 63; PULSE 65; RESP 16; TEMP 36.1; TEMP 36.6; O2SAT 97; O2SAT 98; BMI 23.3
--- NOTE | 2020-04-15 10:47 | XR_ITS ---
PROCEDURE: XR FOOT LT MIN 3V CLINICAL INDICATION: trauma Posttraumatic pain and swelling COMPARISON: CR XR FOOT WT BEARING RT 3V from 06/13/2019 CR XR FOOT WT BEARING LT 3V from 06/13/2019 FINDINGS: There is a faint transverse lucency involving the distal shaft of the proximal phalanx of the 2nd digit suspicious for nondisplaced fracture. This is only observed on the AP view and could be due to artifact. Please correlate as the patient's area of pain and tenderness. There is flexion of the 2nd through 5th toes IMPRESSION: Possible nondisplaced fracture distal shaft of proximal phalanx of the 2nd digit Dictated by: Aki Donovan MD 04/15/2020 11:37 Aki Donovan MD in [place] 04/15/2020 11:37
[2020-04-15 10:55] VITALS: BP 106/68; PULSE 71; RESP 16; O2SAT 98
--- NOTE | 2020-04-15 10:55 | HMH.EDGENADL ---
ED Disposition Clinical Impression: Toe fracture, left, URI (upper respiratory infection) Disposition: Home, Self-Care Condition on Discharge: Fair Instructions: DI for Toe Fracture Referrals: Mark Lozada MD [Primary Care Provider] - Lea Sigala DPM [Staff Physician] - - Critical Care Critical Care Time: No Attestation: On 04/15/20, the high probability of a clinically significant, sudden or life threatening deterioration of the following system(s) required my full and direct attention, intervention and personal management. The time I documented below is in addition to time spent performing reported procedures but includes the following listed in this critical care notation. Medical Decision Making - Medical Records Medical records reviewed: Yes: I reviewed the patient's medical records. - Nelson Inquiry Pt receiving controlled substance: No Vital Signs: 04/15/20 10:25 04/15/20 10:55 04/15/20 11:25 Temperature 97 F L Temperature Source Oral Pulse Rate [Left Radial] 63 71 64 Pulse Rate [Right] 65 Respiratory Rate 16 16 18 Blood Pressure [Right Arm] 105/53 L 106/68 L 110/72 Blood Pressure Mean [Right Arm] 70 80 84 Blood Pressure Source [Right Arm] Automatic Cuff Automatic Cuff Automatic Cuff Blood Pressure Position [Right Arm] Sitting Supine Supine 02 Sat by Pulse Oximetry 97 98 97 Oxygen Delivery Method Room Air Room Air Room Air 04/15/20 11:30 Temperature Temperature Source Pulse Rate [Left Radial] 64 Pulse Rate [Right] Respiratory Rate 16 Blood Pressure [Right Arm] 105/58 L Blood Pressure Mean [Right Arm] 73 Blood Pressure Source [Right Arm] Automatic Cuff Blood Pressure Position [Right Arm] Supine 02 Sat by Pulse Oximetry 96 Oxygen Delivery Method Room Air - Lab Data Lab Results 04/15/20 10:40: Group A Strep Rapid Negative 04/15/20 11:28: Influenza Type A Ag Negative, Influenza Type B Ag Negative Orders (Tests/Meds): ED MEDICATIONS Discontinued Medications Generic Name Dose Route Start Last Admin Trade Name Freq PRN Reason Stop Dose Admin Acetaminophen 1,000 mg 04/15/20 10:48 04/15/20 10:54 Tylenol 500mg Tablet PO 04/15/20 10:49 1,000 mg ONCE ONE Administration Lidocaine HCl 15 ml 04/15/20 10:49 04/15/20 10:54 Lidocaine 2% Viscous Solution 15ml Udc PO 04/15/20 10:50 15 ml ONCE ONE Administration ORDERS Category Date Time Status Coronavirus 19 Swab (OUTPT) Routine Lab 04/15/20 11:04 Received Strep Screen Confirmation Stat Micro 04/15/20 10:40 Received - Radiology Data #1 Image(s): Foot/Toes Possible nondisplaced fracture distal shaft of proximal phalanx of the 2nd digit - Reevaluation(s) Time: 12:10 Reevaluation #1: On reevaluation, patient is feeling better. Influenza and strep swab are negative. Patient does have evidence of a toe fracture. Patient was given Ortho shoe. Given orthopedic follow-up. Given strict return precautions. Verbalized understanding. Medical Decision Narrative: 75-year-old female presented to the emergency department with nasal congestion, sore throat and left foot pain. I do believe her pain is consistent with a sprain. X-ray will be obtained. Patient is high risk for coronavirus. Influenza, coronavirus and strep swabs will be obtained. General Adult HPI - General Chief complaint: PAIN Stated complaint: [id number] left foot injury @ home,sore throat Time Seen by Provider: 04/15/20 10:25 Mode of Arrival: Ambulatory Limitations: No Limitations Description of Symptoms (Recalled from ER Triage Doc. by RN): to ed per pvt car with c/o pain lt lateral ankle and foot states her dog jumped on her lastnight and she twisted her ankle. c/o limited weight bearing. 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 denies fever, chills, nausea, vomiting, loss of taste or smell. - History of Present Illness HPI narrative: This is a 75-year-old fem
[2020-04-15 11:04] LABS: Strep Scrn Group A (Rapid) Negative (Negative)
[2020-04-15 11:25] VITALS: BP 110/72; PULSE 64; RESP 18; O2SAT 97
[2020-04-15 11:30] VITALS: BP 105/58; PULSE 64; RESP 16; O2SAT 96
[2020-04-15 12:00] VITALS: PULSE 61; O2SAT 95
[2020-04-15 12:30] VITALS: BP 105/58; BP 116/67; PULSE 59; PULSE 64; RESP 17; RESP 18; TEMP 36.1; O2SAT 96; O2SAT 97
[2020-04-16 13:53] LABS: Covid-19 Nasal PCR Sendout Lex Not Detected
== END 2020-04-15 12:33 | disposition home or self-care (01) ==
PROVIDERS: Emergency Provider Emergency Medicine; PCP Internal Medicine Adolescent Medicine
DX: S92.515A Nondisplaced fracture of proximal phalanx of left lesser toe(s), initial encounter for closed fracture (principal); X50.1XXA Overexertion from prolonged static or awkward postures, initial encounter; Y92.019 Unspecified place in single-family (private) house as the place of occurrence of the external cause; J06.9 Acute upper respiratory infection, unspecified; F41.8 Other specified anxiety disorders; K21.9 Gastro-esophageal reflux disease without esophagitis; E78.5 Hyperlipidemia, unspecified; I10 Essential (primary) hypertension; G43.709 Chronic migraine without aura, not intractable, without status migrainosus; Z20.828 Contact with and (suspected) exposure to other viral communicable diseases; Z88.0 Allergy status to penicillin; Z88.8 Allergy status to other drugs, medicaments and biological substances
CPT/HCPCS: 73630; 87275; 87276; 87430; 99284; U0004

== ENCOUNTER → 2020-04-25 19:12 | Outpatient (CLI) | payer MEDICARE, SELFPAY | PROVIDERS: PCP Internal Medicine Adolescent Medicine; Visit Provider Nurse Practitioner Family | DX: R53.83 Other fatigue (principal); W57.XXXA Bitten or stung by nonvenomous insect and other nonvenomous arthropods, initial encounter | CPT/HCPCS: 86618 ==

== ENCOUNTER → 2020-04-27 13:57 | Outpatient (CLI) | payer MEDICARE, SELFPAY ==
--- NOTE | 2020-04-27 13:58 | CA_ITS ---
APPROVED REPORT EXAM: Comprehensive 2D, Doppler, and color-flow Echocardiogram Casino Attendant: Kirsty Bass CRT Ht: 5 ft 9 in Wt: 162lbs BSA: 1.89 BP: 133/78 mmHg Indications: Shortness of Breath, Fatigue, Peripheral Edema, CAD, Hypertension/HDD, stent, 2D Dimensions LVOT 2.03 cm (M/F) 1.5-2.5 M-Mode Dimensions RVDd 2.67 cm (0.9-2.6) LVDd 3.64 cm (3.5-5.7) LVDs 2.38 cm (3.5-5.7) IVSd 1.88 cm (0.6-1.1) PWd 1.10 cm (0.6-1.1) EF (Teich) 64.80% FS 34.60% EDV (Teich) 55.90 mL ESV (Teich) 19.70 mL LV Diastology E/A Ratio 0.41 Mitral Valve MV A Velocity 115.00 (40-130 cm/s) Left Ventricle Left atrium is mildly enlarged, left ventricle is normal size, mild concentric left ventricular hypertrophy, visually estimated ejection fraction 55% with no regional wall motion abnormality. Grade 1 diastolic dysfunction seen without tissue Doppler evidence of raise left atrial pressure. Right Ventricle Right atrium and right ventricular normal size and contractility. Aortic Valve Aortic valve is thickened and calcified leaflet chordae display good mobility, there is no aortic stenosis or aortic insufficiency. Mitral Valve Mitral valve is grossly normal, there is mild mitral regurgitation. Tricuspid Valve Tricuspid valve grossly normal, there is mild tricuspid regurgitation, tricuspid regurgitation jet velocity is inadequate for calculation of the right ventricular systolic pressure. Pulmonic Valve Pulmonic valve is poorly visualized. Great Vessels Aortic root is normal size. Pericardium No significant pericardial effusion noted. Conclusion 1. Mildly enlarged left atrium, normal left ventricular size, mild concentric left ventricular hypertrophy, visually estimated ejection fraction 55% with no regional wall motion abnormality, grade 1 diastolic dysfunction seen without tissue Doppler evidence of raise left atrial pressure. 2. Thickened and calcified aortic valve without aortic stenosis or aortic insufficiency. 3. Mild mitral and tricuspid regurgitation. 4. No significant pericardial effusion noted. Electronically signed by : Richard Ames, 04/27/2020 22:03:53
== END ==
PROVIDERS: PCP Internal Medicine Adolescent Medicine; Visit Provider Internal Medicine Cardiovascular Disease
DX: I25.10 Atherosclerotic heart disease of native coronary artery without angina pectoris (principal); I27.20 Pulmonary hypertension, unspecified; I35.1 Nonrheumatic aortic (valve) insufficiency; I51.89 Other ill-defined heart diseases; R06.00 Dyspnea, unspecified; R60.9 Edema, unspecified
CPT/HCPCS: 93306

== ENCOUNTER 2020-04-27 15:33 | Emergency (ER) | payer MEDICARE, SELFPAY ==
--- NOTE | 2020-04-27 15:43 | HMH.EDGENADL ---
ED Disposition Clinical Impression: Elevated erythrocyte sedimentation rate, Elevated C-reactive protein (CRP) Fatigue Qualifiers: Fatigue type: unspecified Qualified Code(s): R53.83 - Other fatigue Tick bite Qualifiers: Encounter type: initial encounter Qualified Code(s): W57.XXXA - Bitten or stung by nonvenomous insect and other nonvenomous arthropods, initial encounter Disposition: Home, Self-Care Condition on Discharge: Good Instructions: DI for Fatigue, DI for Lyme Disease Prescriptions: Doxycycline Hyclate [Doxycycline 100mg Capsule] 100 mg PO BID 10 Days #20 cap Prescription Printed Referrals: Leonardo Goldman MD [Primary Care Provider] - 3 days - Critical Care Critical Care Time: No Attestation: On 04/27/20, the high probability of a clinically significant, sudden or life threatening deterioration of the following system(s) required my full and direct attention, intervention and personal management. The time I documented below is in addition to time spent performing reported procedures but includes the following listed in this critical care notation. Medical Decision Making - Medical Records Medical records reviewed: Yes: I reviewed the patient's medical records. - Nelson Inquiry Pt receiving controlled substance: No Vital Signs: 04/27/20 15:45 04/27/20 17:09 Temperature 98.3 F Temperature Source Oral Pulse Rate [Right Brachial] 82 75 Respiratory Rate 18 Blood Pressure [Right Arm] 140/82 145/72 H Blood Pressure Mean [Right Arm] 101 96 Blood Pressure Source [Right Arm] Automatic Cuff Automatic Cuff Blood Pressure Position [Right Arm] Supine Sitting 02 Sat by Pulse Oximetry 98 98 Oxygen Delivery Method Room Air Room Air - Lab Data Lab results reviewed: Yes: I reviewed the patient's lab results. Lab Results 04/27/20 16:49: WBC 9.2, RBC 3.98 L, Hgb 11.9 L, Hct 34.8 L, MCV 87.6, MCH 30.0, MCHC 34.3, RDW 13.1, Plt Count 296, MPV 8.7, Neut % (Auto) 79.3, Lymph % (Auto) 11.8, [place] % (Auto) 5.0, Eos % (Auto) 2.8, Baso % (Auto) 1.1, Neut # (Auto) 7.3, Lymph # (Auto) 1.1, [place] # (Auto) 0.5, Eos # (Auto) 0.3, Baso # (Auto) 0.1 04/27/20 16:49: PT 11.0, INR 1.08, APTT 23.7 04/27/20 16:49: Sodium 140, Potassium 3.8, Chloride 111 H, Carbon Dioxide 23, Anion Gap 9.8, BUN 17, Creatinine 1.30 H, Estimated Creat Clear 44, Estimated GFR 40 L, Est GFR ( Amer) 49 L, Glucose 98, Calcium 8.9, Total Bilirubin 0.3, AST 25, ALT 9 L, Alkaline Phosphatase 131 H, C-Reactive Protein 40.5 H, Total Protein 6.6, Albumin 3.3 L, Globulin 3.3 H, Albumin/Globulin Ratio 1.0 L 04/27/20 16:49: ESR > 140 H Result diagrams: 04/27/20 16:49 04/27/20 16:49 Orders (Tests/Meds): ORDERS Category Date Time Status Ehrilichia Detection PCR Routine Lab 04/27/20 16:49 Received Lyme, Total Ab Test/Reflex Stat Lab 04/27/20 16:49 Received Q-Fever Antibodies, IgG Stat Lab 04/27/20 16:49 Received Medical Decision Narrative: Patient does not have any significant coagulopathy, anemia, thrombocytopenia or significant metabolic derangement. Laboratory evaluation and clinical evaluation does not suggest dehydration that needs IV resuscitation. She is able to tolerate oral fluids. She has no episodes of diarrhea while here. While I do not see any evidence of a target lesion, certainly tickborne illness remains a possibility, in addition to other illnesses that would cause weight loss, fatigue, etc. including cancer. I have discussed all of this with Dr. Goldman. She does have elevated inflammatory markers. I will start her on doxycycline and have her follow-up closely outpatient in clinic. No need for acute admission at this time. I did send labs for Lyme, Erlichiosis, Q fever. She does not have or describe rash consistent with [place] spotted fever. Patient has no signs of meningitis on exam. Nonfocal neurologic exam. General Adult HPI - General Stated complaint: 10# wt loss in 1 mo, cough, bullseye rash, fatigu
[2020-04-27 15:45] VITALS: BP 140/82; PULSE 82; RESP 18; TEMP 36.8; O2SAT 98; BMI 23.3
--- NOTE | 2020-04-27 16:12 | PC.NURSE ---
Dr Goldman speaking with Dr Daugherty at this time.
[2020-04-27 16:58] LABS: Basophils # 0.1 K/mm3 (0-0.2); Basophils % 1.1 % (0.1-2.0); Eosinophils # 0.3 K/mm3 (0.0-0.4); Eosinophils % 2.8 % (0.1-12.0); Hematocrit 34.8 % (37.0-47.0); Hemoglobin 11.9 g/dL (12.2-16.2); Lymphocytes # 1.1 K/mm3 (0.7-4.5); Lymphocytes % 11.8 % (10-50); Mean Corpuscular HGB Conc 34.3 g/dL (31.8-35.4); Mean Corpuscular Volume 87.6 fl (81-99); Mean Platelet Volume 8.7 fl (7.4-10.4); Monocytes # 0.5 K/mm3 (0.1-1.0); Neutrophils # 7.3 K/mm3 (1.8-7.8); Neutrophils % 79.3 % (37.0-80.0); Platelet Count 296 K/mm3 (142-424); Red Blood Count 3.98 M/mm3 (4.20-5.40); Red Cell Distribution Width 13.1 % (11.5-17.5); White Blood Count 9.2 K/mm3 (4.8-10.8)
[2020-04-27 17:00] LABS: Chloride 111 mmol/L (98-107); Potassium 3.8 mmoL/L (3.5-5.1); Sodium 140 mmol/L (136-145)
[2020-04-27 17:03] LABS: Alanine Aminotransferase 9 U/L (12-78); Albumin Level 3.3 g/dl (3.5-5.0); Alkaline Phosphatase 131 U/L (38-126); Anion Gap 9.8 mEq/L (5-15); Aspartate Amino Transferase 25 U/L (14-36); Bilirubin,Total 0.3 mg/dl (0.2-1.3); Blood Urea Nitrogen 17 mg/dl (7-17); Carbon Dioxide 23 mmol/L (22.0-30.0); Creatinine Clearance Estimated 44 mL/min (50-200); Estimated Glomerular Filt Rate 40 ml/min (>60); GFR (African American) 49 ML/MIN (>60); Globulin 3.3 g/dL (1.3-3.2); Total Protein,Serum 6.6 g/dl (6.3-8.2)
[2020-04-27 17:04] LABS: Calcium 8.9 mg/dl (8.4-10.2); Glucose 98 mg/dl (74-100)
[2020-04-27 17:05] LABS: Activated Partial Thrombo Time 23.7 seconds (23.6-34.0); INR 1.08 (0.9-1.1)
[2020-04-27 17:09] VITALS: BP 145/72; PULSE 75; O2SAT 98
[2020-04-27 17:09] LABS: C-Reactive Protein 40.5 mg/L (0-4)
[2020-04-27 17:24] LABS: Erythrocyte Sedimentation Rate > 140 mm/hr (0-30)
[2020-04-27 18:01] VITALS: BP 141/86; PULSE 74; RESP 18; TEMP 36.6; O2SAT 97
[2020-04-30 13:56] LABS: Q Fever Phase I Negative (Neg:<1:16)
[2020-04-30 17:12] LABS: Q Fever Phase II Negative (Neg:<1:16)
[2020-05-02 07:58] LABS: A. phagocytophilum,PCR Negative (Negative); Ehrlichia chaffeensis Negative (Negative)
== END 2020-04-27 18:03 | disposition home or self-care (01) ==
PROVIDERS: Emergency Provider Emergency Medicine; PCP Internal Medicine Adolescent Medicine
DX: S10.96XA Insect bite of unspecified part of neck, initial encounter (principal); W57.XXXA Bitten or stung by nonvenomous insect and other nonvenomous arthropods, initial encounter; R70.0 Elevated erythrocyte sedimentation rate; R79.82 Elevated C-reactive protein (CRP); K21.9 Gastro-esophageal reflux disease without esophagitis; I10 Essential (primary) hypertension; E78.5 Hyperlipidemia, unspecified; I25.10 Atherosclerotic heart disease of native coronary artery without angina pectoris; F41.8 Other specified anxiety disorders; Z88.0 Allergy status to penicillin; Z88.5 Allergy status to narcotic agent; Z79.01 Long term (current) use of anticoagulants; Z51.81 Encounter for therapeutic drug level monitoring
CPT/HCPCS: 36415; 80053; 85025; 85610; 85651; 85730; 86140; 86618; 86638; 87798; 93306; 99282

== ENCOUNTER 2020-05-10 00:35 | Observation (INO) | payer MEDICARE, SELFPAY ==
[2020-05-10] VITALS (11 sets, daily range): BP systolic 106–138; BP diastolic 52–73; PULSE 57–76; RESP 16–18; TEMP 36.6–36.9; O2SAT 97–99; BMI 23.3; BMI 24.3
--- NOTE | 2020-05-10 00:47 | HMH.EDCP ---
ED Disposition Clinical Impression: Chest pain Qualifiers: Chest pain type: precordial pain Qualified Code(s): R07.2 - Precordial pain Disposition: Admitted as Observation Condition on Discharge: Good Referrals: Provider,Referral, [Primary Care Provider] - - Critical Care Critical Care Time: No Attestation: On , the high probability of a clinically significant, sudden or life threatening deterioration of the following system(s) required my full and direct attention, intervention and personal management. The time I documented below is in addition to time spent performing reported procedures but includes the following listed in this critical care notation. Medical Decision Making - Medical Records Medical records reviewed: Yes: I reviewed the patient's medical records. - Nelson Inquiry Pt receiving controlled substance: No Vital Signs: 05/10/20 00:35 05/10/20 01:22 Temperature 97.9 F Temperature Source Oral Pulse Rate [Right] 57 L 61 Respiratory Rate 16 18 Blood Pressure [Right Arm] 118/53 L 120/52 L Blood Pressure Mean [Right Arm] 74 74 Blood Pressure Source [Right Arm] Automatic Cuff Blood Pressure Position [Right Arm] Supine 02 Sat by Pulse Oximetry 97 99 Oxygen Delivery Method Room Air Room Air - Lab Data Lab results reviewed: Yes: I reviewed the patient's lab results. Lab Results 05/10/20 00:48: WBC 9.0, RBC 3.96 L, Hgb 11.9 L, Hct 35.8 L, MCV 90.6, MCH 30.1, MCHC 33.2, RDW 13.3, Plt Count 283, MPV 8.7, Neut % (Auto) 76.6, Lymph % (Auto) 12.4, [place] % (Auto) 4.8, Eos % (Auto) 5.0, Baso % (Auto) 1.2, Neut # (Auto) 6.9, Lymph # (Auto) 1.1, [place] # (Auto) 0.4, Eos # (Auto) 0.5 H, Baso # (Auto) 0.1 05/10/20 00:48: Sodium 140, Potassium 3.9, Chloride 100, Carbon Dioxide 30, Anion Gap 13.9, BUN 22 H, Creatinine 1.20 H, Estimated Creat Clear 47, Estimated GFR 44 L, Est GFR ( Amer) 53 L, Glucose 117 H, Calcium 8.7, Amylase 76, Lipase 232 Result diagrams: 05/10/20 00:48 05/10/20 00:48 Orders (Tests/Meds): ED MEDICATIONS Generic Name Dose Route Start Last Admin Trade Name Freq PRN Reason Stop Dose Admin Sodium Chloride 1,000 mls @ 999 mls/hr 05/10/20 01:00 05/10/20 00:56 Sod Chlor 0.9% 1000ml Bag IV 05/10/20 02:00 999 mls/hr .Q1H1M CELINE Administration Sodium Chloride 8 ml 05/10/20 00:52 Sodium Chloride 0.9% 10ml Vial IV 06/09/20 00:51 NEEDED PRN dilute pepcid Discontinued Medications Generic Name Dose Route Start Last Admin Trade Name Freq PRN Reason Stop Dose Admin Famotidine 20 mg 05/10/20 00:52 05/10/20 00:57 Pepcid 20mg/2ml Vial IV 05/10/20 00:53 20 mg ONCE ONE Administration Metoclopramide HCl 10 mg 05/10/20 00:52 05/10/20 00:56 Reglan 10mg/2ml Vial IVP 05/10/20 00:53 10 mg ONCE ONE Administration Ondansetron HCl 4 mg 05/10/20 00:52 05/10/20 00:57 Zofran 4mg/2ml Vial IV 05/10/20 00:53 4 mg ONCE ONE Administration ORDERS Category Date Time Status XR chest 2V Stat Exams 05/10/20 00:49 Taken Amylase Stat Lab 05/10/20 00:48 Results Basic Metabolic Panel Stat Lab 05/10/20 00:48 Results Brain Natriuretic Peptide Stat Lab 05/10/20 00:48 Results Lipase Stat Lab 05/10/20 00:48 Results T4 (Thyroxine) Stat Lab 05/10/20 00:48 Results Thyroid Stimulating Hormone Stat Lab 05/10/20 00:48 Results Troponin I Q3H Lab 05/10/20 04:00 Ordered Troponin I Q3H Lab 05/10/20 07:00 Ordered Troponin I Stat Lab 05/10/20 00:48 Results - ECG Data Tracing #1 Arrhythmias present: sinus rama Ischemic changes: non-specific ST-T wave changes Chest Pain HPI - General Chief Complaint: Chest Pain Stated Complaint: chest pain Time Seen by Provider: 05/10/20 00:40 Mode of Arrival: Ambulatory Source of Information: Patient, Medical Record Limitations: No Limitations Description of Symptoms (Recalled from ER Triage Doc. by RN): burning chest pain that started two hours ago. pt states her diaphragm is burni
--- NOTE | 2020-05-10 00:49 | ECG_ITS ---
APPROVED REPORT Exam: Resting ECG HR:55 bpm ECG Measurements Heart Rate 55 AXES MD 156 P 29 QRSd 68 QRS -12 QT 460 T 14 QTc 440 <Conclusion> Sinus bradycardia Cannot rule out Anterior infarct, age undetermined Abnormal ECG Electronically signed by : Mark Lozada, 05/10/2020 08:35:04
--- NOTE | 2020-05-10 00:49 | XR_ITS ---
PROCEDURE: XR CHEST 2V CLINICAL INDICATION: chest pain COMPARISON: CR CXR1 CHEST-PORTABLE from 05/31/2014 CR CXR CHEST(2 VIEWS-NOT PORTABLE) from 10/14/2015 CR XR CHEST 2V from 05/25/2019 FINDINGS: Unremarkable cardiovascular structures. There is elevation of the right hemidiaphragm. Lungs are clear bilaterally. No acute bony anomalies are evident. IMPRESSION: No change with no acute finding. Dictated by: Aki Donovan MD 05/10/2020 07:46 Aki Donovan MD in [place] 05/10/2020 07:46
[2020-05-10 00:58] LABS: Basophils # 0.1 K/mm3 (0-0.2); Basophils % 1.2 % (0.1-2.0); Eosinophils # 0.5 K/mm3 (0.0-0.4); Hematocrit 35.8 % (37.0-47.0); Hemoglobin 11.9 g/dL (12.2-16.2); Lymphocytes # 1.1 K/mm3 (0.7-4.5); Lymphocytes % 12.4 % (10-50); Mean Corpuscular HGB Conc 33.2 g/dL (31.8-35.4); Mean Corpuscular Hemoglobin 30.1 pg (27.0-31.2); Mean Corpuscular Volume 90.6 fl (81-99); Mean Platelet Volume 8.7 fl (7.4-10.4); Monocytes # 0.4 K/mm3 (0.1-1.0); Monocytes % 4.8 % (1.7-9.3); Neutrophils # 6.9 K/mm3 (1.8-7.8); Neutrophils % 76.6 % (37.0-80.0); Platelet Count 283 K/mm3 (142-424); Red Blood Count 3.96 M/mm3 (4.20-5.40); Red Cell Distribution Width 13.3 % (11.5-17.5)
[2020-05-10 01:12] LABS: Amylase 76 U/L (30-110); Blood Urea Nitrogen 22 mg/dl (7-17); Calcium 8.7 mg/dl (8.4-10.2); Carbon Dioxide 30 mmol/L (22.0-30.0); Creatinine Clearance Estimated 47 mL/min (50-200); Estimated Glomerular Filt Rate 44 ml/min (>60); GFR (African American) 53 ML/MIN (>60); Glucose 117 mg/dl (74-100); Lipase 232 U/L (23-300); Potassium 3.9 mmoL/L (3.5-5.1); Sodium 140 mmol/L (136-145)
[2020-05-10 01:16] LABS: Anion Gap 13.9 mEq/L (5-15); Chloride 100 mmol/L (98-107)
[2020-05-10 01:25] LABS: NT Pro Brain Natriuretic Pep. 449 pg/mL (0-125); Troponin I 0.02 ng/ml (0.00-0.034)
[2020-05-10 01:29] LABS: T4 (Thyroxine) 11.8 ug/dl (5.53-11.0)
[2020-05-10 01:43] LABS: Thyroid Stimulating Hormone 1.22 uIU/mL (0.465-4.68)
[2020-05-10 01:47] LABS: Coronavirus 19 IgG Antibody Positive (Negative)
[2020-05-10 01:48] LABS: Coronavirus 19 IgM Antibody Negative (Negative)
--- NOTE | 2020-05-10 02:00 | PC.NURSE ---
permission for patient to have in-house covid swab due to recent igg result, admission and negative swabs two weeks ago. pt persists in having nightly fevers and feeling poorly. discussed with boiler house inspector, mateus. permission obtained
[2020-05-10 02:19] LABS: Adenovirus,PCR Not Detected (NotDetected); Bordetella Pertussis Not Detected (NotDetected); Chlamydophila Pneumoniae, PCR Not Detected (NotDetected); Coronavirus 19, PCR Not Detected (NotDetected); Coronavirus 229E Not Detected (NotDetected); Coronavirus NL63 Not Detected (NotDetected); Coronavirus OC43 Not Detected (NotDetected); Coronovirus HKU1,PCR Not Detected (NotDetected); Human Metapneumovirus Not Detected (NotDetected); Influenza A, PCR Not Detected (NotDetected); Influenza AH1, 2009 Not Detected (NotDetected); Influenza AH1, PCR Not Detected (NotDetected); Influenza AH3,PCR Not Detected (NotDetected); Influenza B, PCR Not Detected (NotDetected); Mycoplasma Pneumoniae, PCR Not Detected (NotDetected); Parainfluenza 1, PCR Not Detected (NotDetected); Parainfluenza 2, PCR Not Detected (NotDetected); Parainfluenza 3, PCR Not Detected (NotDetected); Parainfluenza 4, PCR Not Detected (NotDetected); Respiratory Syncytial Virus Not Detected (NotDetected); Rhinovirus/Enterovirus Not Detected (NotDetected)
--- NOTE | 2020-05-10 04:03 | PC.NURSE ---
PT ARRIVED TO THE FLOOR VIA W/C WITH STAFF FROM ED AT 0402.
[2020-05-10 04:36] LABS: Troponin I 0.02 ng/ml (0.00-0.034)
--- NOTE | 2020-05-10 05:25 | PC.NURSE ---
She is A&O4. She denies SOA, dizziness, and weakness. Reports nausea. States the pain is more of an ache. She ambulates independently. Continues on RA. NSR on telemetry. NPO with cardiology consult today.
--- NOTE | 2020-05-10 06:04 | PC.NURSE ---
Landen TOVAR NOTIFIED OF CONSULT.
[2020-05-10 07:15] LABS: Basophils # 0.1 K/mm3 (0-0.2); Chloride 109 mmol/L (98-107); Eosinophils # 0.2 K/mm3 (0.0-0.4); Eosinophils % 2.6 % (0.1-12.0); Lymphocytes # 1.4 K/mm3 (0.7-4.5); Lymphocytes % 18.1 % (10-50); Mean Corpuscular HGB Conc 33.7 g/dL (31.8-35.4); Mean Corpuscular Hemoglobin 29.8 pg (27.0-31.2); Mean Corpuscular Volume 88.4 fl (81-99); Mean Platelet Volume 8.4 fl (7.4-10.4); Monocytes # 0.5 K/mm3 (0.1-1.0); Neutrophils # 5.5 K/mm3 (1.8-7.8); Neutrophils % 72.4 % (37.0-80.0); Platelet Count 254 K/mm3 (142-424); Potassium 3.9 mmoL/L (3.5-5.1); Red Blood Count 3.39 M/mm3 (4.20-5.40); Red Cell Distribution Width 13.3 % (11.5-17.5); Sodium 139 mmol/L (136-145); White Blood Count 7.6 K/mm3 (4.8-10.8)
[2020-05-10 07:17] LABS: Blood Urea Nitrogen 18 mg/dl (7-17); Creatinine Clearance Estimated 49 mL/min (50-200); Estimated Glomerular Filt Rate 44 ml/min (>60); GFR (African American) 53 ML/MIN (>60)
[2020-05-10 07:18] LABS: Anion Gap 7.9 mEq/L (5-15); Carbon Dioxide 26 mmol/L (22.0-30.0); Glucose 96 mg/dl (74-100); Magnesium 1.9 mg/dl (1.6-2.3)
[2020-05-10 07:19] LABS: Hemoglobin 10.1 g/dL (12.2-16.2)
[2020-05-10 07:30] LABS: Troponin I 0.02 ng/ml (0.00-0.034)
--- NOTE | 2020-05-10 07:30 | HMH.PHAVTE ---
[facility] Pharmacy VTE Monitoring - Patient Demographics Admission date: 05/10/20 Report Date: 05/10/20 Time: 07:30 Allergies/Adverse Reactions: Patient Allergies azithromycin [AZITHROMYCIN] Allergy (Severe, Verified 05/10/20 04:12) SOA levofloxacin [LEVOFLOXACIN] Allergy (Severe, Verified 05/10/20 04:12) HEADACHE oxycodone [OXYCODONE] Allergy (Severe, Verified 05/10/20 04:12) DROPS HR erythromycin base [ERYTHROMYCIN BASE] Allergy (Intermediate, Verified 05/10/20 04:12) I-HIVES misoprostol [MISOPROSTOL] Allergy (Intermediate, Verified 05/10/20 04:12) I-HIVES Penicillins [PENICILLINS] Allergy (Mild, Verified 05/10/20 04:12) I-HIVES Height: 1.75 m Weight: 74.644 kg Patient Problems: Current Active Problems Chest pain (Acute) - VTE Risk Labs: VTE Related Lab Results Hgb 10.1 g/dL (12.2-16.2) L D 05/10/20 06:55 Hct 30.0 % (37.0-47.0) L 05/10/20 06:55 Plt Count 254 K/mm3 (142-424) 05/10/20 06:55 BUN 18 mg/dl (7-17) H 05/10/20 06:55 Creatinine 1.20 mg/dl (0.52-1.04) H 05/10/20 06:55 Estimated Creat Clear 49 mL/min (50-200) 05/10/20 06:55 Was VTE Risk Assessment Performed: Yes VTE Score: 5 VTE Risk Level: Low Risk - Prophylaxis VTE Prophylaxis Ordered?: Yes Types of VTE Prophylaxis: TEDS Knee High Location of Applied Device: Bilateral Lower Extremeties
--- NOTE | 2020-05-10 08:41 | HMH.HPDC ---
General - General Admission date:: 05/10/20 Discharge date: 05/10/20 *Admission Date: 05/09/20 *Chief complaint: Chest pain *History of present illness: 75-year-old white female with multiple medical problems, recent weight loss, malaise and myalgias that she attributes to a tick bite about 4 to 5 weeks ago, in spite of negative early Miracle and Lyme disease serologies and treatment with doxycycline, who came to the emergency department from her workplace here at [facility] after suffering 2 hours of burning chest pain. She reports that there was a tightness component to the pain, reports that it was not like my regular heartburn but reports that it was not exertionally related. She denied palpitations, nausea, diaphoresis or dyspnea. In the emergency department troponins were negative, admitted for serial enzymes and EKG monitoring. [facility] History I have reviewed the patient's past medical history: Yes Medical History: Reports:: Anxiety, Cancer (Cervical CA-had hysterectomy.), Coronary Artery Disease, Depression, Gastroesophageal Reflux Disease(GERD), Hyperlipidemia, Hypertension, Lung Disease, Migraine Denies:: Diabetes Mellitus Type 1, Diabetes Mellitus Type 2, Internal Pacemaker, MRSA, Seizures *Have you ever received a pneumonia vaccine?: Yes *Have you received a flu vaccine this season?: Yes Other Medical History: Reports: Arthritis, Thyroid Disease (hypothyroidism.). Denies: Blood Transfusion Reaction Laterality Cases: Bilateral: Other Other Surgeries: Yes: No Previous Surgery, Cardiac Catheterization, Cardiac Surgery, Coronary Stent, Hysterectomy-Total, Tubal Ligation, Other (Left ankle ligament repair.). No: Pacemaker Amputation: No Fractures: No - *Social History Last grade of school completed: Advanced degree Smoking Status: Never smoker Alcohol Intake: never Alcohol Intake Frequency:: other Substance Use Type: denies use *Occupational Status:: employed Housing: other Household Members: other *Travel in the last 8 weeks: None - Psychiatric History Pschychiatric History:: Reports:: Anxiety, Depression Family Hx:: Cancer, Diabetes, Heart Attack, Hypertension, Kidney Disease, Stroke, Thyroid Disorder Review of Systems - Review of Systems Review of systems:: pertinent systems reviewed and negative unless documented below Review of systems pertinent for weight loss, malaise, some anhedonia. Negative for other cardiac issues as noted above. Negative for organic GI symptoms. Negative for respiratory symptoms. - *Neurologic Denies seizure-like activity Exam Vital signs and Labs for Last 24 Hours: Temp Pulse Resp BP Pulse Ox 98.4 F 64 16 118/64 99 05/10/20 07:43 05/10/20 07:43 05/10/20 07:43 05/10/20 07:43 05/10/20 08:06 Laboratory Results - last 24 hr 05/10/20 00:48: WBC 9.0, RBC 3.96 L, Hgb 11.9 L, Hct 35.8 L, MCV 90.6, MCH 30.1, MCHC 33.2, RDW 13.3, Plt Count 283, MPV 8.7, Neut % (Auto) 76.6, Lymph % (Auto) 12.4, [place] % (Auto) 4.8, Eos % (Auto) 5.0, Baso % (Auto) 1.2, Neut # (Auto) 6.9, Lymph # (Auto) 1.1, [place] # (Auto) 0.4, Eos # (Auto) 0.5 H, Baso # (Auto) 0.1 05/10/20 00:48: Sodium 140, Potassium 3.9, Chloride 100, Carbon Dioxide 30, Anion Gap 13.9, BUN 22 H, Creatinine 1.20 H, Estimated Creat Clear 47, Estimated GFR 44 L, Est GFR ( Amer) 53 L, Glucose 117 H, Calcium 8.7, Troponin I 0.02, NT-Pro-B Natriuret Pep 449 H, Amylase 76, Lipase 232, TSH 1.22, Thyroxine (T4) 11.8 H 05/10/20 00:48: SARS-CoV-2 IgG Ab (Rapid) Positive A, SARS-CoV-2 IgM Ab (Rapid) Negative 05/10/20 02:15: Chlamy pneumoniae PCR Not detected, Adenovirus (PCR) Not detected, B. pertussis DNA (PCR) Not detected, Coronavirus OC43 (PCR) Not detected, Coronavirus HKU1 (PCR) Not detected, Coronavirus 229E (PCR) Not detected, COVID-19 PCR Not detected, Coronavirus NL63 (PCR) Not detected, Human Metapneumovir PCR Not detected, Influenza A (H1) PCR Not detected, Influ A (H1N1/09) PCR Not detected, Influenza A (H3) PCR Not dete
--- NOTE | 2020-05-10 09:22 | HMH.CNCARD ---
History of Present Illness Consult date: 05/10/20 Requesting physician: Mark Lozada Consult reason: chest pain Chief complaint: chest pain, Nausea and vomiting Additional Medical History:: 1. CAD A. [facility], 2016 [facility], 01/2017 and 02/2018, patent LAD stent, mild disease of RCA and Cx. Normal EF [facility]. [facility], 01/2019 due to anterior ischemia on nuclear stress test, patent LAD stent, mild RCA and Cx disease. EF 65%. LVEDP 20 mm Hg 2. History of depression 3. Hypertension A. Echo, 04/2020,1. Mildly enlarged left atrium, normal left ventricular size, mild concentric left ventricular hypertrophy, visually estimated ejection fraction 55% with no regional wall motion abnormality, grade 1 diastolic dysfunction seen without tissue Doppler evidence of raise left atrial pressure. 2. Thickened and calcified aortic valve without aortic stenosis or aortic insufficiency. 3. Mild mitral and tricuspid regurgitation. 4. No significant pericardial effusion noted. 4. Hyperlipidemia A. Statin therapy with LDL 53 in February 2020 5. Tick bite with concern for Lyme disease, 03/2020. 1 round of doxycycline. A. Recurrent nausea and vomiting with near 40 pound weight loss. 6. History of hysterectomy due to cervical cancer 7. History of GERD 8. History of migraine headaches 9. Anemia, Hgb 10-11, normal indices. 10. History of DVT and PE, coumadin therapy for one year. 11. IgG positive for COVID with PCR negative, 04/2020. History of present illness: 75-year-old white female with multiple medical problems, recent weight loss, malaise and myalgias that she attributes to a tick bite about 4 to 5 weeks ago, in spite of negative early Miracle and Lyme disease serologies and treatment with doxycycline, who came to the emergency department from her workplace here at [facility] after suffering 2 hours of burning chest pain. She reports that there was a tightness component to the pain, reports that it was not like my regular heartburn but reports that it was not exertionally related. She denied palpitations, nausea, diaphoresis or dyspnea. In the emergency department troponins were negative, admitted for serial enzymes and EKG monitoring. The above per Dr. Lozada Patient does relate episodes of nausea and vomiting on the day of her admission. Again she confirmed no exertional component to her chest discomfort. She did take a nitroglycerin with only relief of sharp discomfort and no relief of the chest tightness or burning sensation. EKG is sinus with no acute ST segment changes and her troponins were normal. Patient has had 3 cardiac catheterizations in the last 3 years showing patent LAD stent with only mild disease of the RCA and circumflex arteries with normal ejection fraction. [facility] History Medical History: Reports:: Anxiety, Cancer (Cervical CA-had hysterectomy.), Coronary Artery Disease, Depression, Gastroesophageal Reflux Disease(GERD), Hyperlipidemia, Hypertension, Lung Disease, Migraine Denies:: Diabetes Mellitus Type 1, Diabetes Mellitus Type 2, Internal Pacemaker, MRSA, Seizures *Have you ever received a pneumonia vaccine?: Yes *Have you received a flu vaccine this season?: Yes Other Medical History: Reports: Arthritis, Thyroid Disease (hypothyroidism.). Denies: Blood Transfusion Reaction Laterality Cases: Bilateral: Other Other Surgeries: Yes: No Previous Surgery, Cardiac Catheterization, Cardiac Surgery, Coronary Stent, Hysterectomy-Total, Tubal Ligation, Other (Left ankle ligament repair.). No: Pacemaker Amputation: No Fractures: No - *Social History Last grade of school completed: Advanced degree Smoking Status: Never smoker Alcohol Intake: never Alcohol Intake Frequency:: other Substance Use Type: denies use *Occupational Status:: employed Housing: other Household Members: other *Travel in the last 8 weeks: None - Psychiatric History Pschychiatric History:: Reports:: Anxiety, Depression Family Hx:: Cancer,
--- OUTSIDE RECORDS SUMMARY | 2020-05-10 13:14 | XMS_ITS | Continuity of Care Document ---
:1945 Author Organization [facility] Address [address] [address] [address] [place] [address] Phone Care Team Providers Name Role Phone Joaoson Attending Provider Kierra Primary Care Provider Hui Attending Provider Mesfin Attending Provider Unavailable Susi Primary Care Provider Kavin Attending Provider Allergies, Adverse Reactions, Alerts Allergen Type Severity Reaction Last Updated Verified Status azithromycin Allergy Severe SOA April Yes Active
== END 2020-05-10 12:05 | disposition home or self-care (01) ==
LOC: ER 01:27 → 2ND 04:02
PROVIDERS: Admitting Provider Family Medicine; Emergency Provider Emergency Medicine; PCP Internal Medicine Adolescent Medicine; Visit Provider Family Medicine
DX: R07.9 Chest pain, unspecified (principal); I25.10 Atherosclerotic heart disease of native coronary artery without angina pectoris; I11.0 Hypertensive heart disease with heart failure; E03.9 Hypothyroidism, unspecified; J44.9 Chronic obstructive pulmonary disease, unspecified; Z95.5 Presence of coronary angioplasty implant and graft
CPT/HCPCS: 36415; 71046; 80048; 82150; 83690; 83735; 83880; 84436; 84443; 84484; 85025; 86328; 87581; 87633; 87798; 93005; 96365; 96375; 99284; G0378; J2405

== ENCOUNTER → 2020-11-17 14:19 | Outpatient (CLI) | payer MEDICARE, SELFPAY ==
[2020-11-17 15:12] LABS: Alanine Aminotransferase 12 U/L (12-78); Albumin Level 3.6 g/dl (3.5-5.0); Albumin/Globulin Ratio 1.2 (1.1-1.8); Alkaline Phosphatase 145 U/L (38-126); Anion Gap 13.9 mEq/L (5-15); Aspartate Amino Transferase 29 U/L (14-36); Bilirubin,Total 0.4 mg/dl (0.2-1.3); Blood Urea Nitrogen 18 mg/dl (7-17); Calcium 9.2 mg/dl (8.4-10.2); Carbon Dioxide 22 mmol/L (22.0-30.0); Chloride 110 mmol/L (98-107); Chol/HDL Ratio 2.4 (1-3.5); Cholesterol 146 mg/dl (140-200); Estimated Glomerular Filt Rate 40 ml/min (>60); GFR (African American) 49 ML/MIN (>60); Globulin 2.9 g/dL (1.3-3.2); Glucose 90 mg/dl (74-100); HDL Cholesterol 62 mg/dl (40-60); Potassium 4.9 mmoL/L (3.5-5.1); Sodium 141 mmol/L (136-145); Total Protein,Serum 6.5 g/dl (6.3-8.2); Triglycerides 73 mg/dl (30-150); VLDL Cholesterol 15 mg/dL (0-40)
[2020-11-17 15:23] LABS: Direct LDL Cholesterol 55.31 mg/dL (100-129)
[2020-11-17 15:42] LABS: Thyroid Stimulating Hormone 1.59 uIU/mL (0.465-4.68)
[2020-11-17 15:48] LABS: Basophils # 0.1 K/mm3 (0-0.2); Eosinophils # 0.3 K/mm3 (0.0-0.4); Eosinophils % 5.6 % (0.1-12.0); Hematocrit 40.3 % (37.0-47.0); Hemoglobin 12.9 g/dL (12.2-16.2); Lymphocytes # 1.1 K/mm3 (0.7-4.5); Lymphocytes % 19.1 % (10-50); Mean Corpuscular HGB Conc 32.1 g/dL (31.8-35.4); Mean Corpuscular Hemoglobin 28.8 pg (27.0-31.2); Mean Corpuscular Volume 89.7 fl (81-99); Mean Platelet Volume 8.7 fl (7.4-10.4); Monocytes # 0.3 K/mm3 (0.1-1.0); Monocytes % 5.3 % (1.7-9.3); Neutrophils # 4.1 K/mm3 (1.8-7.8); Platelet Count 279 K/mm3 (142-424); Red Blood Count 4.49 M/mm3 (4.20-5.40); Red Cell Distribution Width 14.4 % (11.5-17.5)
== END ==
PROVIDERS: Visit Provider Internal Medicine Adolescent Medicine
DX: I25.119 Atherosclerotic heart disease of native coronary artery with unspecified angina pectoris (principal); E03.9 Hypothyroidism, unspecified; E78.5 Hyperlipidemia, unspecified
CPT/HCPCS: 80053; 80061; 84443; 85025

== ENCOUNTER → 2021-04-16 14:07 | Outpatient (CLI) | payer MEDICARE, SELFPAY | PROVIDERS: Visit Provider Internal Medicine Gastroenterology | DX: Z01.812 Encounter for preprocedural laboratory examination (principal); Z20.822 Contact with and (suspected) exposure to COVID-19; Z12.11 Encounter for screening for malignant neoplasm of colon | CPT/HCPCS: U0003 ==

== ENCOUNTER 2021-04-18 09:26 | Day surgery (SDC) | payer MEDICARE, SELFPAY ==
[2021-04-12 11:40] VITALS: BMI 22.1
[2021-04-18 09:58] VITALS: BP 117/78; PULSE 61; RESP 18; TEMP 36.4; O2SAT 96
[2021-04-18 11:01] VITALS: O2SAT 99
--- NOTE | 2021-04-18 11:27 | HMH.PROC ---
[facility] Procedure Note Procedure Note:: Colonoscopy Procedure Report: Colonoscopy with cold biopsies Endoscopist: Landen Wiley II, MD Referring physician: Mark Lozada M.D. Date of Procedure: April 18, 2021 Equipment: Olympus 190 variable stiffness pediatric colonoscope Sedation: MAC sedation Indication: Mrs. Avila is a 76-year-old female who is here for diagnostic colonoscopy secondary to diarrhea. She had this for approximately 4 months. This is stopped in the last 3 weeks. She was taking Imodium. She did note some mucus with her bowel movements but no blood. Her father had colon cancer in his 60s. The patient's last colonoscopy 6 or 7 years ago (Dr. John Ashley) was normal without polyps. She reports no abdominal pain or rectal bleeding. She did have some unintentional weight loss last summer due to Lyme's disease. She also had fatigue and was sleeping 20 hours a day at that time. She was successfully treated with doxycycline and most of the fatigue is gone. Procedure: Prior to the procedure, a history and physical exam was performed, and patient's medications and allergies were reviewed. The risks, benefits and alternatives of the sedation and procedure were discussed with the patient. All questions were answered and informed consent was obtained. The patient was brought to the procedure room. Patient identification and proposed procedure were verified by the physician and the nurse. The patient was placed in a left lateral decubitus position and the scope was passed under direct vision. Throughout the procedure, the patient's blood pressure, pulse, and oxygen saturations were monitored continuously. The colonoscopy was accomplished without difficulty. The patient tolerated the procedure well. Findings: On digital rectal examination there was normal rectal tone. There were no external hemorrhoids. The colonoscope was introduced through the anal canal to the rectum and advanced to the cecum. The ileocecal valve and appendiceal orifice were identified. The scope was advanced a short distance into the ileum which appeared grossly normal. The scope was then withdrawn into the colon. The cecum, ascending, transverse and descending colon were grossly normal. There was very mild diverticulosis of the sigmoid colon. The rectum was normal. Cold biopsies were taken from the right colon randomly to rule out microscopic colitis. There were no mucosal abnormalities identified. Upon retroflexion within the rectum there were small grade 1 internal hemorrhoids.The preparation was excellent throughout with Cheyney Preparation Score of 9. The cecal time was 12 minutes. Impression: 1. Very mild sigmoid diverticulosis 2. Small grade 1 internal hemorrhoids Plan: I will follow-up the biopsies. The patient is clinically much improved. I would encourage bulk fiber supplementation. Even with her family history, I am not convinced that she will need to continue surveillance colonoscopy since she has had no adenomatous polyps on her last 2 colonoscopy examinations.
[2021-04-18 11:30] VITALS: BP 81/51; PULSE 68; RESP 18; TEMP 36.1; O2SAT 99
[2021-04-18 11:40] VITALS: BP 89/53; PULSE 63; RESP 18; O2SAT 100
--- NOTE | 2021-04-18 12:17 | P.PN_ITS ---
[facility] Anesthesia Checklist - Structural Data Admitted From: Home Planned Operative Procedure/s: colonoscopy Consent for Planned Operative Procedure(s) Verified: Yes - Additional verifications Anesthesia Reactions: No Hx Blood Transfusions: No Blood Transfusion Reaction: No - Airway Assessment C-Spine Mobility Assessed: Yes TMJ Mobility Assessed: Yes Dentition: Good Dentition - Neurological Assessment Level of Consciousness: Awake, Alert, Appropriate - Anesthesia Plan Anesthesia Risk discussed: Yes Anesthesia Plan: Verified ASA Class: II Anesthesia Type: MAC [facility] History I have reviewed the patient's past medical history: Yes Medical History: Reports:: Anxiety, Cancer, Coronary Artery Disease, Depression, Gastroesophageal Reflux Disease(GERD), Hyperlipidemia, Hypertension, Lung Disease, Migraine Denies:: Diabetes Mellitus Type 1, Diabetes Mellitus Type 2, Internal P acemaker, MRSA, Seizures *Have you ever received a pneumonia vaccine?: No *Have you received a flu vaccine this season?: No Other Medical History: Reports: Arthritis, Thyroid Disease. Denies: Blood Transfusion Reaction Anesthesia experience/problems:: none Laterality Cases: Bilateral: Cataract, Other Other Surgeries: Yes: No Previous Surgery, Cardiac Catheterization, Cardiac Surgery, Coronary Stent, Hysterectomy-Total, Tubal Ligation, Other (Left ankle ligament repair.). No: Pacemaker Amputation: No Fractures: No - *Social History Last grade of school completed: Advanced degree Smoking Status: Never smoker Alcohol Intake: never Alcohol Intake Frequency:: other Substance Use Type: denies use *Occupational Status:: employed Housing: other Household Members: other *Travel in the last 8 weeks: None - Psychiatric History Pschychiatric History:: Reports:: Anxiety, Depression Family Hx:: Cancer, Diabetes, Heart Attack, Hypertension, Kidney Disease, Stroke, Thyroid Disorder
[2021-04-18 12:21] VITALS: BP 121/77; PULSE 54; RESP 18; O2SAT 100
== END 2021-04-18 12:22 | disposition home or self-care (01) ==
LOC: OUTP 09:26
PROVIDERS: PCP Internal Medicine Adolescent Medicine; Visit Provider Internal Medicine Gastroenterology
PROC: 0DJD8ZZ Inspection of Lower Intestinal Tract, Via Natural or Artificial Opening Endoscopic (ICD-10-PCS; CPT 45378; principal; 2021-04-18 10:30)
DX: Z80.0 Family history of malignant neoplasm of digestive organs (principal); K57.30 Diverticulosis of large intestine without perforation or abscess without bleeding; K64.0 First degree hemorrhoids; F41.9 Anxiety disorder, unspecified; I25.10 Atherosclerotic heart disease of native coronary artery without angina pectoris; F32.9 Major depressive disorder, single episode, unspecified; K21.9 Gastro-esophageal reflux disease without esophagitis; E78.5 Hyperlipidemia, unspecified; I10 Essential (primary) hypertension; G43.909 Migraine, unspecified, not intractable, without status migrainosus; M19.90 Unspecified osteoarthritis, unspecified site; Z79.899 Other long term (current) drug therapy
CPT/HCPCS: 45380; 88305

== ENCOUNTER → 2021-05-04 11:12 | Outpatient (CLI) | payer MEDICARE, SELFPAY ==
[2021-05-04 11:50] LABS: Influenza A, PCR Not Detected (NotDetected); Influenza B, PCR Not Detected (NotDetected)
[2021-05-04 12:35] LABS: Coronavirus 19, PCR Detected (NotDetected)
--- NOTE | 2021-05-04 13:30 | PC.NURSE ---
PT NOTIFIED OF POSITIVE COVID.
== END ==
PROVIDERS: PCP Internal Medicine Adolescent Medicine; Visit Provider Nurse Practitioner
DX: Z20.822 Contact with and (suspected) exposure to COVID-19 (principal); U07.1 COVID-19
CPT/HCPCS: U0003

== ENCOUNTER → 2021-10-07 12:53 | Outpatient (CLI) | payer MEDICARE, SELFPAY ==
--- NOTE | 2021-10-07 13:00 | MM_ITS ---
PROCEDURE INFORMATION: Exam: MG Bilateral Screening 3D Mammography Exam date and time: 10/07/2021 1:00 PM Age: 76 years old Clinical indication: Screening mammogram TECHNIQUE: Imaging protocol: Bilateral Screening tomosynthesis and 2D mammography including computer-aided detection (CAD) when performed. COMPARISON: 1. MG DMSB DIG MAMM-SCREEN SKY 04/12/2015 11:07 AM 2. MG DMSB DIGITAL MAMM-SCREEN BILATERAL 09/20/2010 10:58 AM 3. OT DIGMAMMS MAMMOGRAM SCREEN-[facility] N/C 10/26/2008 3:19 PM 4. OT DIGMAMMS MAMMOGRAM SCREEN-[facility]NA[facility] N/C 10/16/2007 3:10 PM FINDINGS: MAMMOGRAPHY: Breast composition: There are scattered areas of fibroglandular density. Mass: Stable benign-appearing subcentimeter nodules are present in the bilateral breasts. No new or morphologically suspicious nodule has developed to suggest malignancy. Architectural distortion: No new or suspicious architectural distortion. Calcifications: No new or suspicious calcifications are present Asymmetric density: No new or suspicious asymmetric density is present Skin thickening: None. Axillary adenopathy: None. IMPRESSION: No mammographic evidence of malignancy. Recommend annual screening mammography unless otherwise clinically indicated. ASSESSMENT: BI-RADS category 2: Benign
== END ==
PROVIDERS: PCP Internal Medicine Adolescent Medicine; Visit Provider Internal Medicine Adolescent Medicine
DX: Z12.31 Encounter for screening mammogram for malignant neoplasm of breast (principal)
CPT/HCPCS: 77063; 77067

== ENCOUNTER → 2021-12-12 14:06 | Outpatient (CLI) | payer MEDICARE, SELFPAY ==
[2021-12-12 14:26] LABS: Basophils # 0.1 K/mm3 (0-0.2); Basophils % 1.8 % (0.1-2.0); Eosinophils # 0.3 K/mm3 (0.0-0.4); Eosinophils % 5.8 % (0.1-12.0); Hematocrit 38.2 % (37.0-47.0); Hemoglobin 12.4 g/dL (12.2-16.2); Lymphocytes % 21.2 % (10-50); Mean Corpuscular HGB Conc 32.5 g/dL (31.8-35.4); Mean Corpuscular Hemoglobin 30.9 pg (27.0-31.2); Mean Platelet Volume 9.6 fl (7.4-10.4); Monocytes # 0.3 K/mm3 (0.1-1.0); Monocytes % 5.9 % (1.7-9.3); Neutrophils # 3.2 K/mm3 (1.8-7.8); Neutrophils % 65.2 % (37.0-80.0); Platelet Count 249 K/mm3 (142-424); Red Blood Count 4.02 M/mm3 (4.20-5.40); Red Cell Distribution Width 14.2 % (11.5-17.5); White Blood Count 4.9 K/mm3 (4.8-10.8)
[2021-12-12 14:49] LABS: Alanine Aminotransferase 15 U/L (12-78); Albumin Level 3.5 g/dl (3.5-5.0); Albumin/Globulin Ratio 1.3 (1.1-1.8); Alkaline Phosphatase 112 U/L (38-126); Anion Gap 8.2 mEq/L (5-15); Aspartate Amino Transferase 29 U/L (14-36); Bilirubin,Total 0.6 mg/dl (0.2-1.3); Blood Urea Nitrogen 23 mg/dl (7-17); Calcium 8.5 mg/dl (8.4-10.2); Carbon Dioxide 27 mmol/L (22.0-30.0); Chloride 108 mmol/L (98-107); Chol/HDL Ratio 2.4 (1-3.5); Cholesterol 113 mg/dl (140-200); Estimated Glomerular Filt Rate 44 ml/min (>60); GFR (African American) 53 ML/MIN (>60); Globulin 2.7 g/dL (1.3-3.2); Glucose 85 mg/dl (74-100); HDL Cholesterol 48 mg/dl (40-60); Potassium 4.2 mmoL/L (3.5-5.1); Sodium 139 mmol/L (136-145); Total Protein,Serum 6.2 g/dl (6.3-8.2); Triglycerides 84 mg/dl (30-150); Uric Acid 6.9 mg/dl (2.5-6.2); VLDL Cholesterol 17 mg/dL (0-40)
[2021-12-12 14:58] LABS: Erythrocyte Sedimentation Rate 46 mm/hr (0-30)
[2021-12-12 14:59] LABS: Direct LDL Cholesterol 39.99 mg/dL (100-129)
[2021-12-12 15:15] LABS: Free Thyroxine Index 3.8 ug/dL (5.93-13.13); Triiodothryronine (T3) Uptake 32 % (23.5-40.5)
[2021-12-12 15:29] LABS: Thyroid Stimulating Hormone 1.12 uIU/mL (0.465-4.68)
== END ==
PROVIDERS: Visit Provider Internal Medicine Adolescent Medicine
DX: E03.9 Hypothyroidism, unspecified (principal); M10.9 Gout, unspecified
CPT/HCPCS: 36415; 80053; 80061; 84436; 84443; 84479; 84550; 85025; 85651

== ENCOUNTER 2022-07-13 01:05 | Emergency (ER) | payer OTHER, MEDICARE, SELFPAY ==
[2022-07-13 01:06] VITALS: BP 140/79; PULSE 71; RESP 18; TEMP 36.1; O2SAT 97; BMI 21.5
[2022-07-13 01:08] VITALS: BMI 22.7
--- NOTE | 2022-07-13 01:08 | XR_ITS ---
PROCEDURE INFORMATION: Exam: XR Chest Exam date and time: 07/13/2022 1:17 AM Age: 77 years old Clinical indication: Injury or trauma; Fall; Blunt trauma (contusions or hematomas); Patient HX: Denies any chest pain TECHNIQUE: Imaging protocol: Radiologic exam of the chest. Views: 1 view. COMPARISON: CR XR CHEST 2V 05/10/2020 12:59 AM FINDINGS: Lungs: Unremarkable. No consolidation. Pleural spaces: Unremarkable. No pleural effusion. No pneumothorax. Heart/Mediastinum: Unremarkable. No cardiomegaly. Bones/joints: Degenerative changes and rotoscoliosis. IMPRESSION: No evidence of acute cardiopulmonary process.
--- NOTE | 2022-07-13 01:08 | XR_ITS ---
PROCEDURE INFORMATION: Exam: XR Pelvis Exam date and time: 07/13/2022 1:16 AM Age: 77 years old Clinical indication: Injury or trauma; Fall; Blunt trauma (contusions or hematomas); Does not apply; Pelvic region TECHNIQUE: Imaging protocol: Radiologic exam of the pelvis. Views: 1 or 2 view. COMPARISON: CR XR PELVIS 1-2V 05/25/2019 12:42 AM FINDINGS: Bones/joints: Degenerative spondylosis and facet arthropathy within the lower lumbar spine. Osteophytosis and eburnation of the sacroiliac joints and hips. Soft tissues: Unremarkable. IMPRESSION: 1. No acute fracture is identified. 2. Osteoarthritis. 3. Degenerative disc disease.
--- NOTE | 2022-07-13 01:08 | CT_ITS ---
PROCEDURE INFORMATION: Exam: CT Head Without Contrast Exam date and time: 07/13/2022 2:39 AM Age: 77 years old Clinical indication: Injury or trauma; Fall TECHNIQUE: Imaging protocol: Computed tomography of the head without contrast. Radiation optimization: All CT scans at this facility use at least one of these dose optimization techniques: automated exposure control; mA and/or kV adjustment per patient size (includes targeted exams where dose is matched to clinical indication); or iterative reconstruction. COMPARISON: CT HEAD/BRAIN WO CON 05/25/2019 12:17 AM FINDINGS: Brain: Mild bilateral white matter hypodensities which are nonspecific but most commonly associated with chronic microvascular ischemia in this age group. The IACs are grossly normal. No extra-axial fluid collections. No evidence of acute intracranial hemorrhage. No CT evidence of large territory acute or subacute intracranial ischemia/infarct. No intracranial mass lesions. No midline shift or herniation. Cerebral ventricles: Mild compensatory ventriculomegaly secondary to central atrophy. Pituitary gland and sella: The sella is grossly normal. Paranasal sinuses: Visualized paranasal sinuses are clear. Mastoid air cells: Visualized mastoid air cells are clear. Orbital cavities: No acute intraorbital findings. Prior bilateral ocular lens extraction. Bones/joints: The calvarium and visualized facial bones are intact. Soft tissues: Midline occipital scalp soft tissue swelling/hematoma with no underlying fracture or foreign body. Vasculature: Moderate calcific atherosclerosis. No asymmetric vascular hyperdensities suggestive of thrombosis are identified. Other findings: Moderate generalized atrophy. Renteria-white differentiation is well maintained. IMPRESSION: 1. No acute intracranial process. No intracranial hemorrhage or mass effect. 2. Midline occipital scalp soft tissue swelling/hematoma with no underlying fracture or foreign body. 3. Atrophy and nonspecific white matter hypodensities, most commonly related to chronic microvascular ischemia in this age group. 4. Moderate calcific atherosclerosis.
--- NOTE | 2022-07-13 01:08 | CT_ITS ---
PROCEDURE INFORMATION: Exam: CT Cervical Spine Without Contrast Exam date and time: 07/13/2022 2:39 AM Age: 77 years old Clinical indication: Injury or trauma; Fall; Blunt trauma TECHNIQUE: Imaging protocol: Computed tomography of the cervical spine without contrast. Radiation optimization: All CT scans at this facility use at least one of these dose optimization techniques: automated exposure control; mA and/or kV adjustment per patient size (includes targeted exams where dose is matched to clinical indication); or iterative reconstruction. COMPARISON: CT CERVICAL SPINE WO CON 05/25/2019 12:21 AM FINDINGS: Bones/joints: Osteopenia. Craniocervical alignment is normal. The occipital condyles are intact. The odontoid is intact. Moderate degenerative sclerosis and spurring at the atlantodens interval. No jumped or perched facets. Moderate right-sided facet hypertrophy C2-C3. Moderate left-sided facet hypertrophy C7-T1. No fractures. 2 mm degenerative anterolisthesis C7-T1 unchanged. Slight 1 mm degenerative retrolisthesis C3-C4 unchanged. No blastic or lytic lesions. Moderate disc space narrowing with endplate sclerosis and mild uncovertebral spurring bilaterally C3-C4 through C6-C7. No compressive soft disc protrusion or extrusion is evident by CT. Mild-moderate canal stenosis C3-C4 through C6-C7. There is left foraminal stenosis which is moderate-severe at C3-C4, moderate at C4-C5 and C5-C6, and moderate-severe at C6-C7. There is right foraminal stenosis which is severe at C3-C4, moderate-severe at C4-C5 and C5-C6. Lungs: Granulomatous calcifications in the right upper lobe. Thyroid: The thyroid gland is moderately atrophic. Correlate clinically for evidence of hypothyroidism. Vasculature: Moderate atherosclerotic calcific plaque in the carotid bulbs. Soft tissues: Paraspinous soft tissues are unremarkable without significant soft tissue swelling or soft tissue hematoma. IMPRESSION: 1. No evidence of fracture or acute traumatic subluxation. No significant change from 05/25/2019. 2. Osteopenia and osteoarthritic changes multilevel canal and foraminal stenoses detailed above. 3. The thyroid gland is moderately atrophic. Correlate clinically for evidence of hypothyroidism.
[2022-07-13 01:20] VITALS: BP 140/79; PULSE 67; O2SAT 98
--- NOTE | 2022-07-13 01:20 | PC.NURSE ---
pt to ct scan
[2022-07-13 01:29] LABS: Chloride 104 mmol/L (98-107)
--- NOTE | 2022-07-13 01:29 | XR_ITS ---
PROCEDURE INFORMATION: Exam: XR Right Humerus Exam date and time: 07/13/2022 1:25 AM Age: 77 years old Clinical indication: Injury or trauma; Fall; Blunt trauma (contusions or hematomas); Shoulder; Right; Additional info: Fall, pain TECHNIQUE: Imaging protocol: Radiologic exam of the Right humerus. Views: 2 or more views. COMPARISON: CR XR HUMERUS RT 05/25/2019 12:34 AM FINDINGS: Bones/joints: Diffuse bone demineralization. Osteophytosis and eburnation the articulating surfaces of the shoulder and elbow. Soft tissues: Normal. IMPRESSION: 1. No acute fracture is identified. 2. Osteopenia. 3. Osteoarthritis.
--- NOTE | 2022-07-13 01:29 | XR_ITS ---
PROCEDURE INFORMATION: Exam: XR Right Shoulder Exam date and time: 07/13/2022 1:22 AM Age: 77 years old Clinical indication: Injury or trauma; Fall; Blunt trauma (contusions or hematomas); Shoulder; Right; Additional info: Fall, pain TECHNIQUE: Imaging protocol: Radiologic exam of the Right shoulder. Views: 2 or more views. COMPARISON: CR XR SHOULDER RT MIN 2V 05/25/2019 12:32 AM FINDINGS: Bones/joints: Osteophytosis and eburnation of the acromioclavicular articulating surfaces. Enthesopathic change of the superolateral humeral head. Mild diffuse bone demineralization. Degenerative changes of the spinal column. Soft tissues: Normal. IMPRESSION: 1. No acute fracture is identified. 2. Osteoarthritis. 3. Enthesopathy at the attachment site of rotator cuff.
[2022-07-13 01:30] LABS: Potassium 3.7 mmoL/L (3.5-5.1); Sodium 144 mmol/L (136-145)
[2022-07-13 01:32] LABS: Alanine Aminotransferase 15 U/L (12-78); Alkaline Phosphatase 178 U/L (38-126); Aspartate Amino Transferase 33 U/L (14-36); Bilirubin,Total 0.2 mg/dl (0.2-1.3); Blood Urea Nitrogen 22 mg/dl (7-17); Creatinine Clearance Estimated 36 mL/min (50-200); Estimated Glomerular Filt Rate 37 ml/min (>60); GFR (African American) 44 ML/MIN (>60)
[2022-07-13 01:33] LABS: Albumin Level 4.5 g/dl (3.5-5.0); Albumin/Globulin Ratio 1.3 (1.1-1.8); Anion Gap 13.7 mEq/L (5-15); Calcium 9.5 mg/dl (8.4-10.2); Carbon Dioxide 30 mmol/L (22.0-30.0); Globulin 3.6 g/dL (1.3-3.2); Glucose 76 mg/dl (74-100); Total Protein,Serum 8.1 g/dl (6.3-8.2)
[2022-07-13 01:38] LABS: Basophils # 0.2 K/mm3 (0-0.2); Basophils % 1.9 % (0.1-2.0); Eosinophils # 0.4 K/mm3 (0.0-0.4); Eosinophils % 4.2 % (0.1-12.0); Hematocrit 43.2 % (37.0-47.0); Hemoglobin 13.4 g/dL (12.2-16.2); Lymphocytes # 2.6 K/mm3 (0.7-4.5); Lymphocytes % 25.2 % (10-50); Mean Corpuscular HGB Conc 31.1 g/dL (31.8-35.4); Mean Corpuscular Hemoglobin 29.4 pg (27.0-31.2); Mean Corpuscular Volume 94.7 fl (81-99); Mean Platelet Volume 9.6 fl (7.4-10.4); Monocytes # 0.6 K/mm3 (0.1-1.0); Monocytes % 6.2 % (1.7-9.3); Neutrophils # 6.4 K/mm3 (1.8-7.8); Neutrophils % 62.5 % (37.0-80.0); Platelet Count 327 K/mm3 (142-424); Red Blood Count 4.56 M/mm3 (4.20-5.40); Red Cell Distribution Width 14.5 % (11.5-17.5); White Blood Count 10.3 K/mm3 (4.8-10.8)
--- NOTE | 2022-07-13 02:18 | HMH.EDFALL ---
Discharge Plan Disposition Patient Disposition: Home, Self-Care Chief Complaint: Fall Prescriptions Prescriptions: No Action acetaminophen-codeine 300-30 mg tablet 1 tab PO NEEDED PRN (Reason: Migraine Headache) 5 Days Qty: 20 Label Comments: levothyroxine 50 mcg tablet 50 mcg PO HS 30 Days Qty: 30 Label Comments: esomeprazole magnesium 20 mg capsule,delayed release(DR/EC) 20 mg PO DAILY PRN (Reason: stomach) 30 Days Qty: 30 Label Comments: milk thistle 500 mg capsule 500 mg PO BID gabapentin 100 mg capsule 100 mg PO DAILYP PRN (Reason: Agitation) paroxetine HCl 40 mg tablet 40 mg PO DAILY atorvastatin 20 mg tablet See Rx Instructions .ROUTE .COMPLEX Qty: 90 1RF Dose Instruction: TAKE ONE TABLET BY MOUTH EVERY DAY AT BEDTIME FOR CHOLESTEROL Rx Instructions: TAKE ONE TABLET BY MOUTH EVERY DAY AT BEDTIME FOR CHOLESTEROL metoprolol succinate 25 mg tablet extended release 24 hr See Rx Instructions .ROUTE .COMPLEX Qty: 90 2RF Dose Instruction: TAKE ONE TABLET BY MOUTH EVERY DAY AT BEDTIME FOR HYPERTENSION Rx Instructions: TAKE ONE TABLET BY MOUTH EVERY DAY AT BEDTIME FOR HYPERTENSION furosemide 40 mg tablet 40 mg PO MOWEFR Qty: 30 4RF aspirin [Adult Low Dose Aspirin] 81 mg tablet,delayed release (DR/EC) 81 mg PO HS nitroglycerin 0.4 mg tablet, sublingual See Rx Instructions .ROUTE .COMPLEX Qty: 25 1RF Dose Instruction: PLACE 1 TABLET UNDER TONGUE EVERY 5 MINUTES IF NEEDED FOR CHEST PAIN; MAY REPEAT 2 TIMES; IF NO RELIEF AFTER 3 DOSES CALL 911 OR GO TO ER Rx Instructions: PLACE 1 TABLET UNDER TONGUE EVERY 5 MINUTES IF NEEDED FOR CHEST PAIN; MAY REPEAT 2 TIMES; IF NO RELIEF AFTER 3 DOSES CALL 911 OR GO TO ER furosemide 20 mg tablet See Rx Instructions .Route .COMPLEX Qty: 30 1RF Rx Instructions: TAKE ONE TABLET BY MOUTH EVERY DAY NEEDED FOR FLUID, TAKE 2 TABLETS BY MOUTH ON SUNDAY, & SUNDAY acyclovir 800 MG tablet 800 mg PO DAILYP PRN (Reason: INFECTION) Label Comments: TAKE 1 TABLET BY MOUTH NEEDED colchicine 0.6 mg tablet 0.6 mg PO BID Label Comments: TAKE ONE TABLET BY MOUTH TWICE DAILY butalbital-acetaminophen 1 EACH tablet 1 each PO DAILYP PRN (Reason: MIGRAINES) Referrals Follow up/Referrals: Mark Lozada MD [Primary Care Provider] - See instructions Clinical Impressions Clinical Impression: Fall, Shoulder sprain, Laceration of scalp, Concussion, Contusion of head Instructions Patient Instructions: DI for Concussion Discharge ED Provider: Eugene Alves Fall HPI General Chief Complaint: Fall Stated Complaint: fall, head lac Time Seen by Provider: 07/13/22 02:18 Mode of Arrival: Wheelchair Source of Information: Patient, Spouse and Medical Record Limitations: No Limitations Description of Symptoms (Recalled from ER Triage Doc. by RN): Pt c/o headache and head laceration after slipping on ice in the parking lot. Pt denies any LOC. Denies and extremity pain. History of Present Illness HPI Narrative: slipped on ice and felland hit head with brief loc - has shoulder pain but no other c/o except headache complaint: fall Onset (ago): minute(s) Fall from: standing Fall witnessed: no Place fall occurred: street Loss of consciousness: unsure Prolonged down time: no Context: tripped/slipped Location of injury: head Location of injury - extremities: Right: shoulder Severity: moderate Associated symptoms (after fall): headache Related Data Home Medications Medication Instructions Recorded Confirmed acetaminophen 300 mg-codeine 30 mg 1 tab PO NEEDED PRN Migraine 11/19/17 04/28/22 tablet Headache 5 days ##20 levothyroxine 50 mcg tablet 50 mcg PO HS thyroid 30 days ##30 11/19/17 04/28/22 milk thistle 500 mg capsule 500 mg PO BID Supplement 07/11/18 04/28/22 aspirin 81 mg tablet,delayed 81 mg PO HS heart 12/25
[2022-07-13 02:47] VITALS: BP 138/78; PULSE 74; RESP 18; TEMP 36.6; O2SAT 98
== END 2022-07-13 02:51 | disposition home or self-care (01) ==
PROVIDERS: Emergency Provider Emergency Medicine; PCP Internal Medicine Adolescent Medicine
DX: S06.0X0A Concussion without loss of consciousness, initial encounter (principal); S43.401A Unspecified sprain of right shoulder joint, initial encounter; S00.93XA Contusion of unspecified part of head, initial encounter; S01.01XA Laceration without foreign body of scalp, initial encounter; W00.0XXA Fall on same level due to ice and snow, initial encounter; Y92.481 Parking lot as the place of occurrence of the external cause; E78.5 Hyperlipidemia, unspecified; I10 Essential (primary) hypertension
CPT/HCPCS: 12001; 70450; 71045; 72125; 72170; 73030; 73060; 80053; 85025; 96374; 99285

== ENCOUNTER 2022-09-21 14:00 | Outpatient (RCR) | payer OTHER, SELFPAY ==
--- NOTE | 2022-09-07 16:37 | HMH.PTOPEV ---
PT Outpatient Evaluation Rehab PT Outpatient Evaluation Start: 09/07/22 15:42 Freq: Status: Active Protocol: Document 09/07/22 15:42 DORA (Rec: 09/07/22 16:02 DORA [id number]) E-signed By David Salgado, PT Outpatient Therapy Subjective History Subjective History Patient is a 77 year old female presenting to outpatient PT with reports of cervical spine pain with associated headaches secondary to a fall at [facility]. This is a workmans comp case as a result of a fall at [facility]. Patient reports that she slipped on black ice and hit her head on the ground posteriorly. Patient has had headaches flucuating in intensity ever since. She has also had constant noise in her ears that sound like cicadas. Comorbidities include hx of SD , HTN and heart cath x 2. Chief Complaint Pain,Stiff Symptom Type Sharp,Dull Symptoms Relieved By Ice,Prescription Meds Current Functional Limitations Reaching,Desk Work/Reading Symptom Description Constant and Continuous Level of pain today (0-10) 3 Pain scale - at its best (0-10) 2 Pain scale - at its worst (0-10) 9 Cervical Eval Palpation Cervical Muscles R Suboccipital,L Suboccipital Cervical/Thoracic Palpation Findings Tenderness Posture Head/C-Spine Posture Sitting Position C-Spine Flattened Head/C-Spine Posture Standing Position C-Spine Flattened Flexibility Deficits Upper Trapezius Muscle Length (R) Moderate Tightness,(L) Moderate Tightness Pectoralis Minor Muscle Length (R) Moderate Tightness,(L) Moderate Tightness Passive Joint Mobility Cervical PIVM Dec: R OA L OA R AA L AA R C2/3 L C2/3 R C3/4 L C3/4 R C4/5 L C4/5 R C5/6 L C5/6 R C6/7 L C6/7 R C7/T1 L C7/T
== END 2022-09-21 14:05 | disposition home or self-care (01) ==
LOC: PT 14:00
PROVIDERS: Visit Provider Specialist
DX: G44.309 Post-traumatic headache, unspecified, not intractable (principal)
CPT/HCPCS: 20561; 97010; 97014; 97110; 97163; G0283

== ENCOUNTER → 2022-09-27 09:00 | Outpatient (CLI) | payer MEDICARE, SELFPAY ==
[2022-09-27 15:48] LABS: Basophils # 0.1 K/mm3 (0-0.2); Basophils % 1.1 % (0.1-2.0); Eosinophils # 0.2 K/mm3 (0.0-0.4); Eosinophils % 2.9 % (0.1-12.0); Hematocrit 40.6 % (37.0-47.0); Hemoglobin 12.8 g/dL (12.2-16.2); Lymphocytes # 1.3 K/mm3 (0.7-4.5); Lymphocytes % 16.9 % (10-50); Mean Corpuscular HGB Conc 31.5 g/dL (31.8-35.4); Mean Corpuscular Hemoglobin 29.3 pg (27.0-31.2); Mean Corpuscular Volume 93.1 fl (81-99); Mean Platelet Volume 9.1 fl (7.4-10.4); Monocytes # 0.3 K/mm3 (0.1-1.0); Monocytes % 4.6 % (1.7-9.3); Neutrophils # 5.6 K/mm3 (1.8-7.8); Neutrophils % 74.4 % (37.0-80.0); Platelet Count 347 K/mm3 (142-424); Red Blood Count 4.37 M/mm3 (4.20-5.40); Red Cell Distribution Width 13.8 % (11.5-17.5); White Blood Count 7.5 K/mm3 (4.8-10.8)
[2022-09-27 15:58] LABS: Alanine Aminotransferase 13 U/L (12-78); Alkaline Phosphatase 147 U/L (38-126); Anion Gap 10.2 mEq/L (5-15); Aspartate Amino Transferase 28 U/L (14-36); Bilirubin,Direct 0.2 mg/dl (0.0-0.4); Bilirubin,Indirect 0.1 mg/dL (0.0-0.9); Bilirubin,Total 0.3 mg/dl (0.2-1.3); Bilirubin,Unconjugated 0.1 mg/dL (0.0-1.1); Blood Urea Nitrogen 16 mg/dl (7-17); Calcium 8.7 mg/dl (8.4-10.2); Carbon Dioxide 27 mmol/L (22.0-30.0); Chloride 108 mmol/L (98-107); Estimated Glomerular Filt Rate 34 ml/min (>60); GFR (African American) 41 ML/MIN (>60); Glucose 92 mg/dl (74-100); Magnesium 1.9 mg/dl (1.6-2.3); Potassium 4.2 mmoL/L (3.5-5.1); Sodium 141 mmol/L (136-145); Total Protein,Serum 7.4 g/dl (6.3-8.2)
[2022-09-27 16:16] LABS: Troponin I < 0.01 ng/ml (0.00-0.034)
[2022-09-27 17:16] LABS: Free T4 (Free Thyroxine) 1.51 ng/dl (0.78-2.19)
== END ==
PROVIDERS: Visit Provider Nurse Practitioner Family
DX: E78.2 Mixed hyperlipidemia; I20.8 Other forms of angina pectoris
CPT/HCPCS: 36415; 80048; 80076; 83735; 84439; 84443; 84484; 85025

== ENCOUNTER → 2022-10-02 10:43 | Outpatient (CLI) | payer OTHER, SELFPAY ==
--- NOTE | 2022-10-02 10:46 | CT_ITS ---
FINAL REPORT TECHNIQUE: Thin-section axial CT images were performed through the temporal bones. Coronal and sagittal reformatted images were submitted. This study was performed with techniques to keep radiation doses as low as reasonably achievable, (ALARA). Individualized dose reduction techniques using automated exposure control or adjustment of mA and/or kV according to the patient's size were employed CLINICAL HISTORY: post traumatic headache FINDINGS: Right: The internal and external auditory canals are normal. The inner ear structures are within normal limits. The middle ear cavity is unremarkable. The ossicles are intact. The mastoid antrum and mastoid air cells are unremarkable. Left: The internal and external auditory canals are normal. The inner ear structures are within normal limits. The middle ear cavity is unremarkable. The ossicles are intact. The mastoid antrum and mastoid air cells are unremarkable. There is no acute bony abnormality. IMPRESSION: No acute abnormality. Reviewed, Interpreted and Dictated by Lance Lainez MD Transcribed by Anne Reveles Authenticated and [facility]
== END ==
PROVIDERS: PCP Internal Medicine Adolescent Medicine; Visit Provider Specialist
DX: G43.909 Migraine, unspecified, not intractable, without status migrainosus (principal); G44.309 Post-traumatic headache, unspecified, not intractable; H91.90 Unspecified hearing loss, unspecified ear; H93.13 Tinnitus, bilateral
CPT/HCPCS: 70480

== ENCOUNTER → 2022-10-04 07:14 | Outpatient (CLI) | payer MEDICARE, SELFPAY ==
--- NOTE | 2022-10-04 | CA_ITS ---
APPROVED REPORT Exam: Pharmacologic Technologist: Marily Braun, Ht: 5 ft 9 in Wt: 162 lbs BSA: 1.89 m2 HR: 55 bpm BP: 125/60 mmHg Rhythm: SR Medical History Medications: Levothyroxine,,,,, Metoprolol,,,,, Asa,,,,, Gabapentin,,,,, Atorvastatin,,,,, Lasix,,,,, PaROXETINE,,,,, Esomeprazole,,,,, Nitro,,,,, ADderALL,,,,, AaLOPURINOL,,,,, Stress Test Details Test: LEXISCAN HR Resting HR: 0 bpm Max Heart Rate (APMHR): 145.459523 bpm Max HR Achieved: 64 bpm Target HR (85% APMHR): 123.298218 bpm % of APMHR: 44.14 Recovery HR: 60 bpm BP Max BP: 125/60 mmHg Recovery BP: 116.0/66.0 mmHg ECG Resting ECG: SR Clinical Exercise duration: 04:12 min Highest Stage Achieved: Stress ECG Conclusion During lexiscan pt experinced chest tightness and SOA. Left neck pain in recovery. No arrhythmias noted. <1.5mm ST segment depression. Test Summary REST . . . . . . . Sitting REST 14:31 . . 0 . . . . Stage 1 . . . . . . . Myoview Injected Stage 1 01:00 . . 51 . . . . Stage 2 01:00 . . 60 . 101/ 55 . . Stage 3 01:00 . . 38 . 108/ 62 . . Stage 4 01:00 . . 36 . 117/ 59 . . Stage 4 01:12 . . 18 . 110/ 57 . Stop exercise at 04:12 RECOVERY 01:00 . . . . . . . RECOVERY 02:00 . . . . 116/ 66 . . RECOVERY 02:40 . . . . 115/ 55 . . Electronically signed by : Richard Ames MD 10/04/2022 13:55:16
--- NOTE | 2022-10-04 07:16 | CA_ITS ---
APPROVED REPORT EXAM: Comprehensive 2D, Doppler, and color-flow Echocardiogram Cost Control Analyst: Kirsty Bass CRT Ht: 5 ft 9 in Wt: 162lbs BSA: 1.89 BP: 126/70 mmHg Indications: Chest Pain, Shortness of Breath, CAD, Hyperlipidemia, Hypertension/HDD, PHTN 2D Dimensions LVOT 1.99 cm (M/F) 1.5-2.5 LA Volume 57.80 mL LA Volume Index 29.90 mL/m2 (M/F) 16-34 M-Mode Dimensions RVDd 3.58 cm (0.9-2.6) LA Diam 3.21 cm (1.9-4.0) LVDd 4.18 cm (3.5-5.7) Ao Diam 4.01 cm (2.0-3.7) LVDs 2.91 cm (3.5-5.7) IVSd 1.41 cm (0.6-1.1) PWd 0.57 cm (0.6-1.1) EF (Teich) 58.20% FS 30.40% EDV (Teich) 77.70 mL TAPSE 1.85 (<1.7) ESV (Teich) 32.50 mL LV Diastology E Decel Time 307.00 (160-240 msec) E/A Ratio 1.06 MED E' 11.70 (< 7 cm/sec) MED A' 11.60 cm/s E'/MED E' Ratio 8.63 (>14) LAT E' 11.80 (<10 cm/sec) LAT A' 9.00 cm/s E/LAT E' Ratio 8.56 (>14) Aortic Valve AO Peak GR. 4.80 mmHg Mitral Valve MV E Max Madi. 101.00 (40-130 cm/s) MV A Velocity 96.00 (40-130 cm/s) E/A Ratio 1.06 MV Decel. Time 307.00 (160-240 ms) MV PHT 90.00 ms Pulmonary Valve PV Peak Velocity 110.00 (50-150 cm/s) Tricuspid Valve TR P. Velocity 221.00 cm/s RAP Estimate 10.00 mmHg RVSP 29.60 mmHg Left Ventricle Left atrium is mildly enlarged, left ventricular is normal size, mild concentric left ventricular hypertrophy, estimated ejection fraction 45% with no regional wall motion abnormality, Doppler evidence of impaired LV relaxation seen. Normal size mild concentric left ventricular hypertrophy, estimated ejection fraction Right Ventricle Right atrium and right ventricular relatively normal size and function. Aortic Valve Aortic valve is minimally thickened and fibrosed there is no aortic stenosis or aortic insufficiency. Mitral Valve Mitral valve is grossly normal, there is trace mitral regurgitation. Tricuspid Valve Tricuspid valve is grossly normal, there is trace tricuspid regurgitation, tricuspid regurgitation jet velocity is inadequate for calculation of the right ventricular systolic pressure. Pulmonic Valve Pulmonary fibrosis visualized. Great Vessels Aortic root is normal size. Review vena cava is poorly visualized. Pericardium No significant pericardial effusion noted. Conclusion 1. Mildly in the left atrium, normal left ventricular size concentric left hypertrophy, estimated ejection fraction 55% with no regional wall motion abnormality, Doppler evidence of impaired LV relaxation seen. 2. Trace mitral and tricuspid regurgitation. 3. No significant pericardial effusion noted. 4. Inferior vena cava is poorly visualized. Electronically signed by : Richard Ames MD 10/05/2022 05:50:02
--- NOTE | 2022-10-04 07:25 | NM_ITS ---
APPROVED REPORT Exam: Nuclear Stress Test Indication: Chest pain, SOB, CAD, Hx of [place], HTN, Family history Patient Location: Outpatient Stress Tech: Allyson Braun NM Tech:Sylvia Brito, ARRT, RT (R)(N) Ht: 5 ft 9 in Wt: 160 lbs Bra Size: 40DD HR: 51 bpm BP: 101/55 mmHg BSA: 1.88 m2 TID: 1.20 BMI: 23.6 History: Chest pain, SOB, CAD, Hx of [place], HTN, Family history Procedure: Patient received 0.4 mg of intravenous Lexiscan, resting heart rate 51 bpm, resting blood pressure 101/55 mmHg, with Lexiscan maximum heart rate achieved was 64 bpm which is Less than 85 % of the maximum predicted heart rate and blood pressure was 125/60 mmHg. With Lexiscan, patient denied any complaint of chest pain. Electrocardiogram Resting electrocardiogram shows sinus rhythm, with Lexiscan there is less than 1.[address] segment depression noted on the baseline EKG. The EKG portion of the Lexiscan is nondiagnostic. Cardiac Stress and Resting SPECT Images: Cardiac Stress and Resting SPECT images were obtained using technetium 99m Myoview 31.0 mCi stress and 10.42 mCi at rest. Due to SPECT analysis of segmental wall motion and calculation of the ejection fraction also done. Prone images were also obtained. Cardiac stress and rest SPECT images were uniform myocardial activity without segmental perfusion abnormality, completed the ejection fraction is 63% with no regional wall motion abnormality, right ventricle is normal size and contractility. Conclusion: 1. The EKG portion of the Lexiscan is nondiagnostic. 2. No scintigraphic evidence of reversible ischemia seen, computed ejection fraction is 63% with no regional wall motion abnormality, right ventricle is normal size and contractility. 3. Likely normal Lexiscan Myoview study. Electronically signed by : Richard Ames MD 10/04/2022 14:20:00
--- NOTE | 2022-10-04 09:30 | HMH.ITSHM ---
Current Home Medications as stated by this patient Naty Avila or investment representative. []PAROXETINE NITRO METOPROLOL LEVOTHYROXINE ISOSORBIDE GABAPENTIN FUROSEMIDE ESOMEPRAZOLE COLCHICINE BUTALBITAL ATORVASTATIN ASA ALLOPURINOL ACYCLOVIR
== END ==
PROVIDERS: PCP Internal Medicine Adolescent Medicine; Visit Provider Nurse Practitioner Family
DX: E78.2 Mixed hyperlipidemia (principal); I11.9 Hypertensive heart disease without heart failure; I27.20 Pulmonary hypertension, unspecified; R06.00 Dyspnea, unspecified; R06.02 Shortness of breath; R07.2 Precordial pain; R42 Dizziness and giddiness; I20.8 Other forms of angina pectoris
CPT/HCPCS: 78452; 93017; 93306; A9502; J2785

== ENCOUNTER → 2022-11-26 14:01 | Outpatient (CLI) | payer MEDICARE, SELFPAY ==
[2022-11-26 18:48] LABS: Microscopic, Urine URINE MICROSCOPIC (MICROSCOPIC)
[2022-11-26 18:59] LABS: Basophils # 0.1 K/mm3 (0-0.2); Basophils % 1.4 % (0.1-2.0); Eosinophils # 0.5 K/mm3 (0.0-0.4); Eosinophils % 6.2 % (0.1-12.0); Hematocrit 39.4 % (37.0-47.0); Hemoglobin 12.5 g/dL (12.2-16.2); Lymphocytes # 1.4 K/mm3 (0.7-4.5); Lymphocytes % 18.6 % (10-50); Mean Corpuscular HGB Conc 31.8 g/dL (31.8-35.4); Mean Corpuscular Hemoglobin 29.6 pg (27.0-31.2); Mean Corpuscular Volume 93.3 fl (81-99); Mean Platelet Volume 9.2 fl (7.4-10.4); Monocytes # 0.4 K/mm3 (0.1-1.0); Monocytes % 5.5 % (1.7-9.3); Neutrophils # 5.1 K/mm3 (1.8-7.8); Neutrophils % 68.3 % (37.0-80.0); Platelet Count 316 K/mm3 (142-424); Red Blood Count 4.22 M/mm3 (4.20-5.40); Red Cell Distribution Width 13.9 % (11.5-17.5); White Blood Count 7.5 K/mm3 (4.8-10.8)
[2022-11-26 19:15] LABS: Albumin Level 3.8 g/dl (3.5-5.0); Blood Urea Nitrogen 17 mg/dl (7-17); Calcium 8.3 mg/dl (8.4-10.2); Carbon Dioxide 29 mmol/L (22.0-30.0); Chloride 103 mmol/L (98-107); Estimated Glomerular Filt Rate 34 ml/min (>60); GFR (African American) 41 ML/MIN (>60); Glucose 109 mg/dl (74-100); Phosphorous 4.8 mg/dl (2.5-4.5); Sodium 139 mmol/L (136-145)
[2022-11-26 19:26] LABS: Intact Parathyroid Hormone 300.4 pg/mL (7.5-53.5)
[2022-11-26 19:35] LABS: Creatinine,Urine Random 74 mg/dL (Not Estab.)
[2022-11-26 20:24] LABS: Appearance,Urine CLEAR (Clear); Bilirubin,Urine Negative (Negative); Blood, Urine Negative (Negative); Color,Urine YELLOW (Yellow); Glucose,Urine (UA) Negative (Negative); Ketones,Urine Negative (Negative); Leukocyte Esterase,Urine TRACE (Negative); Nitrate,Urine Negative (Negative); PH,Urine 5.5 (5.0-8.5); Protein,Urine Negative (Negative); Urobilinogen,Urine 0.2 EU/dl (0.2)
[2022-12-05 18:06] LABS: 1,25 Dihydroxy Vitamin D 34 pg/mL (.); 1,25-Dihydroxy, Vitamin D-2 <10 pg/mL (.); 1,25-Dihydroxy, Vitamin D-3 30 pg/mL (.)
== END ==
PROVIDERS: PCP Internal Medicine Nephrology; Visit Provider Internal Medicine Nephrology
DX: N18.32 Chronic kidney disease, stage 3b (principal); E55.9 Vitamin D deficiency, unspecified
CPT/HCPCS: 80069; 81001; 82570; 82652; 83970; 84155; 85025

== ENCOUNTER → 2022-12-27 14:56 | Outpatient (CLI) | payer MEDICARE, SELFPAY ==
[2022-12-27 15:28] LABS: Basophils # 0.1 K/mm3 (0-0.2); Basophils % 1.5 % (0.1-2.0); Eosinophils # 0.2 K/mm3 (0.0-0.4); Eosinophils % 4.5 % (0.1-12.0); Hematocrit 38.2 % (37.0-47.0); Lymphocytes # 1.1 K/mm3 (0.7-4.5); Lymphocytes % 21.1 % (10-50); Mean Corpuscular HGB Conc 31.5 g/dL (31.8-35.4); Mean Corpuscular Hemoglobin 29.2 pg (27.0-31.2); Mean Corpuscular Volume 92.7 fl (81-99); Mean Platelet Volume 8.2 fl (7.4-10.4); Monocytes # 0.4 K/mm3 (0.1-1.0); Monocytes % 7.1 % (1.7-9.3); Neutrophils # 3.5 K/mm3 (1.8-7.8); Neutrophils % 65.8 % (37.0-80.0); Platelet Count 247 K/mm3 (142-424); Red Blood Count 4.12 M/mm3 (4.20-5.40); Red Cell Distribution Width 13.6 % (11.5-17.5); White Blood Count 5.3 K/mm3 (4.8-10.8)
[2022-12-27 15:31] LABS: Microscopic, Urine URINE MICROSCOPIC (MICROSCOPIC)
[2022-12-27 15:48] LABS: Appearance,Urine CLEAR (Clear); Blood, Urine Negative (Negative); Color,Urine YELLOW (Yellow); Glucose,Urine (UA) Negative (Negative); Ketones,Urine Negative (Negative); Leukocyte Esterase,Urine TRACE (Negative); Nitrate,Urine Negative (Negative); Protein,Urine 1+ (Negative); Specific Gravity, Urine 1.025 (1.005-1.030); Urobilinogen,Urine 0.2 EU/dl (0.2)
[2022-12-27 15:49] LABS: Bilirubin,Urine 1+ (Negative)
[2022-12-27 15:53] LABS: Chloride 101 mmol/L (98-107); Potassium 4.1 mmoL/L (3.5-5.1); Sodium 139 mmol/L (136-145)
[2022-12-27 15:54] LABS: Albumin Level 3.4 g/dl (3.5-5.0)
[2022-12-27 15:56] LABS: Anion Gap 15.1 mEq/L (5-15); Blood Urea Nitrogen 16 mg/dl (7-17); Carbon Dioxide 27 mmol/L (22.0-30.0); Estimated Glomerular Filt Rate 37 ml/min (>60); GFR (African American) 44 ML/MIN (>60)
[2022-12-27 15:57] LABS: Calcium 8.5 mg/dl (8.4-10.2); Glucose 91 mg/dl (74-100); Phosphorous 4.3 mg/dl (2.5-4.5)
[2022-12-27 16:08] LABS: Intact Parathyroid Hormone 204.4 pg/mL (7.5-53.5)
[2022-12-27 16:18] LABS: Total Protein,Urine Random < 5.0 mg/dL (0.0-12.0)
[2022-12-27 17:04] LABS: Creatinine,Urine Random 392 mg/dL (Not Estab.)
[2022-12-27 17:08] LABS: Squamous Epithelial Cell,Urine Occasional #/hpf (0-5); WBC,Urine Occasional #/hpf (0-3)
[2022-12-28 11:59] LABS: 25-OH Vitamin D, Total 40.6 ng/mL (30-100)
== END ==
PROVIDERS: PCP Internal Medicine Adolescent Medicine; Visit Provider Internal Medicine Nephrology
DX: N18.32 Chronic kidney disease, stage 3b (principal); E55.9 Vitamin D deficiency, unspecified
CPT/HCPCS: 36415; 80069; 81001; 82306; 82570; 82652; 83970; 84155; 85025

== ENCOUNTER → 2023-02-15 09:44 | Outpatient (CLI) | payer MEDICARE, SELFPAY ==
--- NOTE | 2023-02-15 09:50 | NM_ITS ---
FINAL REPORT CLINICAL HISTORY: HYPERPARATHYROIDISM..questionable mass 10:05 am 20.5 mci tc sestamibi injected into lt ant COMPARISON: None FINDINGS: PARATHYROID SCAN Procedure: The patient received a dose of 20.5 millicuries of technetium 99m sestamibi. Images over the neck were obtained initially and after a two-hour delay. Findings: On the immediate images there is mild diffuse uptake in the thyroid. On the delayed images there is no discrete hypermetabolic nodule. IMPRESSION: No evidence of hypermetabolic nodule. Reviewed, Interpreted and Dictated by Lance Lainez MD Transcribed by Maryanne Ramírez Authenticated and [facility]
== END ==
PROVIDERS: PCP Internal Medicine Adolescent Medicine; Visit Provider Internal Medicine Adolescent Medicine
DX: E21.3 Hyperparathyroidism, unspecified (principal)
CPT/HCPCS: 78070; A9500

== ENCOUNTER → 2023-04-18 08:14 | Outpatient (CLI) | payer MEDICARE, SELFPAY ==
--- NOTE | 2023-04-18 08:19 | MR_ITS ---
FINAL REPORT CLINICAL HISTORY: VISUAL LOSS, SYNCOPE FINDINGS: Multi planar MR imaging was obtained through the brain without contrast. The midline structures appear intact. There is no evidence of Chiari malformation. There are small scattered foci of increased signal in the deep white matter. On diffusion-weighted images there is no evidence of restricted diffusion. The visualized paranasal sinuses demonstrate normal signal voids. The seventh and eighth nerve root complexes are intact. IMPRESSION: Mild changes of chronic microvascular ischemia. Reviewed, Interpreted and Dictated by Lance Lainez MD Transcribed by Rina Savage Authenticated and [facility]
--- NOTE | 2023-04-18 08:19 | MR_ITS ---
FINAL REPORT CLINICAL HISTORY: VISUAL LOSS, SYNCOPE FINDINGS: Multiple projection images of the brain arterial vasculature were obtained without contrast. raw data images were also reviewed. Exam is degraded by motion artifact. There is a normal intracranial branching pattern. There is a patent left posterior communicating artery. No gross abnormality is identified. IMPRESSION: Exam is degraded by motion, no definite segmental stenosis identified. Reviewed, Interpreted and Dictated by Lance Lainez MD Transcribed by Rina Savage Authenticated and [facility]
== END ==
PROVIDERS: PCP Internal Medicine Adolescent Medicine; Visit Provider Internal Medicine Adolescent Medicine
DX: R55 Syncope and collapse (principal); H54.7 Unspecified visual loss
CPT/HCPCS: 70544; 70551

== ENCOUNTER → 2023-08-07 11:44 | Outpatient (CLI) | payer MEDICARE, SELFPAY ==
[2023-08-07 22:02] LABS: Alanine Aminotransferase 17 U/L (12-78); Albumin Level 3.9 g/dl (3.5-5.0); Alkaline Phosphatase 131 U/L (38-126); Aspartate Amino Transferase 33 U/L (14-36); Bilirubin,Direct 0.2 mg/dl (0.0-0.4); Bilirubin,Indirect 0.1 mg/dL (0.0-0.9); Bilirubin,Total 0.3 mg/dl (0.2-1.3); Bilirubin,Unconjugated 0.1 mg/dL (0.0-1.1); Blood Urea Nitrogen 21 mg/dl (7-17); Calcium 8.5 mg/dl (8.4-10.2); Carbon Dioxide 31 mmol/L (22.0-30.0); Chloride 105 mmol/L (98-107); Cholesterol 143 mg/dl (140-200); Estimated Glomerular Filt Rate 29 ml/min (>60); GFR (African American) 35 ML/MIN (>60); Glucose 122 mg/dl (74-100); Total Protein,Serum 7.3 g/dl (6.3-8.2); Triglycerides 146 mg/dl (30-150); VLDL Cholesterol 29 mg/dL (0-40)
[2023-08-07 22:03] LABS: Anion Gap 7.5 mEq/L (5-15); Chol/HDL Ratio 2.8 (1-3.5); HDL Cholesterol 51 mg/dl (40-60); Potassium 3.5 mmoL/L (3.5-5.1); Sodium 140 mmol/L (136-145)
[2023-08-07 22:04] LABS: Basophils # 0.1 K/mm3 (0-0.2); Basophils % 1.1 % (0.1-2.0); Eosinophils # 0.4 K/mm3 (0.0-0.4); Eosinophils % 5.4 % (0.1-12.0); Hemoglobin 12.5 g/dL (12.2-16.2); Lymphocytes # 1.7 K/mm3 (0.7-4.5); Lymphocytes % 20.4 % (10-50); Mean Corpuscular HGB Conc 33.9 g/dL (31.8-35.4); Mean Corpuscular Hemoglobin 30.8 pg (27.0-31.2); Mean Corpuscular Volume 90.8 fl (81-99); Monocytes # 0.4 K/mm3 (0.1-1.0); Monocytes % 5.2 % (1.7-9.3); Neutrophils # 5.5 K/mm3 (1.8-7.8); Platelet Count 297 K/mm3 (142-424); Red Blood Count 4.07 M/mm3 (4.20-5.40); Red Cell Distribution Width 13.8 % (11.5-17.5); White Blood Count 8.1 K/mm3 (4.8-10.8)
[2023-08-07 22:14] LABS: Intact Parathyroid Hormone 104.2 pg/mL (7.5-53.5)
[2023-08-07 22:24] LABS: Direct LDL Cholesterol 63.86 mg/dL (100-129)
[2023-08-07 22:33] LABS: Thyroid Stimulating Hormone 4.03 uIU/mL (0.465-4.68)
[2023-08-07 23:09] LABS: Free T4 (Free Thyroxine) 1.37 ng/dl (0.78-2.19)
== END ==
PROVIDERS: PCP Physician Assistant; Visit Provider Physician Assistant
DX: E78.5 Hyperlipidemia, unspecified (principal); I11.9 Hypertensive heart disease without heart failure; N28.9 Disorder of kidney and ureter, unspecified; R06.00 Dyspnea, unspecified; R42 Dizziness and giddiness
CPT/HCPCS: 80048; 80061; 80076; 83735; 83970; 84439; 84443; 85025

== ENCOUNTER 2023-08-11 09:45 | Emergency (ER) | payer MEDICARE, SELFPAY ==
[2023-08-11 10:35] VITALS: BP 131/73; PULSE 75; RESP 20; TEMP 37.3; O2SAT 97; BMI 23.1
--- NOTE | 2023-08-11 10:36 | EXP.UTC ---
Discharge Plan Disposition Patient Disposition: Home, Self-Care Condition: Good Prescriptions Prescriptions: New prednisone 10 mg tablet 10 mg PO DIRECTED 9 Days Qty: 21 0RF Rx Instructions: Take 4 tablets daily for 3 days, then take 2 tablets daily for 3 days, then take 1 tablet daily for 3 days, then stop. guaifenesin [Mucinex] 600 mg tablet extended release 12hr 600 - 1,200 mg PO BIDP PRN (Reason: Congestion) Qty: 30 0RF cefdinir 300 mg capsule 300 mg PO BID Qty: 20 0RF No Action acetaminophen-codeine 300-30 mg tablet 1 tab PO NEEDED PRN (Reason: Migraine Headache) 5 Days Qty: 20 Patient Comments: levothyroxine 50 mcg tablet 50 mcg PO HS 30 Days Qty: 30 Patient Comments: esomeprazole magnesium 20 mg capsule,delayed release(DR/EC) 20 mg PO DAILY PRN (Reason: stomach) 30 Days Qty: 30 Patient Comments: gabapentin 100 mg capsule 100 mg PO DAILYP PRN (Reason: Agitation) paroxetine HCl 40 mg tablet 40 mg PO DAILY allopurinol 300 mg tablet 300 mg PO PRN Patient Comments: TAKE ONE TABLET BY MOUTH EVERY DAY atorvastatin 20 mg tablet See Rx Instructions .ROUTE .COMPLEX Qty: 90 3RF Dose Instruction: TAKE ONE TABLET BY MOUTH EVERY DAY AT BEDTIME FOR CHOLESTEROL Rx Instructions: TAKE ONE TABLET BY MOUTH EVERY DAY AT BEDTIME FOR CHOLESTEROL isosorbide mononitrate 30 mg tablet extended release 24 hr 30 mg PO DAILY Qty: 90 3RF metoprolol succinate 25 mg tablet extended release 24 hr 25 mg PO DAILY Qty: 90 3RF aspirin [Adult Low Dose Aspirin] 81 mg tablet,delayed release (DR/EC) 81 mg PO HS nitroglycerin 0.4 mg tablet, sublingual See Rx Instructions .ROUTE .COMPLEX Qty: 25 1RF Dose Instruction: PLACE 1 TABLET UNDER TONGUE EVERY 5 MINUTES IF NEEDED FOR CHEST PAIN; MAY REPEAT 2 TIMES; IF NO RELIEF AFTER 3 DOSES CALL 911 OR GO TO ER Rx Instructions: PLACE 1 TABLET UNDER TONGUE EVERY 5 MINUTES IF NEEDED FOR CHEST PAIN; MAY REPEAT 2 TIMES; IF NO RELIEF AFTER 3 DOSES CALL 911 OR GO TO ER furosemide 40 mg tablet See Rx Instructions .ROUTE .COMPLEX 90 Days Qty: 90 1RF Dose Instruction: TAKE ONE TABLET BY MOUTH ON Sunday, Sunday, AND Erick FOR fluid Rx Instructions: TAKE ONE TABLET BY MOUTH ON Sunday, Sunday, AND Sunday FOR fluid acyclovir 800 mg tablet 800 mg PO DAILYP PRN (Reason: INFECTION) Patient Comments: TAKE 1 TABLET BY MOUTH NEEDED colchicine 0.6 mg tablet 0.6 mg PO BID Patient Comments: TAKE ONE TABLET BY MOUTH TWICE DAILY butalbital-acetaminophen 1 EACH tablet 1 each PO DAILYP PRN (Reason: MIGRAINES) Referrals Follow up/Referrals: Mark Lozada MD [Primary Care Provider] - See instructions Activity Restrictions/Add. Instructions Additional Instructions/Restrictions: Drink plenty of fluids. Take tylenol or ibuprofen for pain or fever. Take the medications as directed. Follow up with your regular doctor. GO TO THE ER FOR ANY WORSENING SYMPTOMS Clinical Impressions Clinical Impression: Acute viral syndrome, Bronchitis Stand Alone Forms Stand Alone Forms: Work/School Release Instructions Patient Instructions: DI for Acute Bronchitis, DI for Viral Syndrome [place] [facility] [place] General Stated complaint: cough, congestion, fever Time Seen by Provider: 08/11/23 10:36 History of Present Illness Provider Complaint: She states that for the past 4 days he has had a productive cough with greenish sputum. She has sinus congestion also. Related Data Home Medications Medication Instructions Recorded Confirmed acetaminophen 300 mg-codeine 30 mg 1 tab PO NEEDED PRN Migraine 11/19/17 08/07/23 tablet Headache 5 days ##20 levothyroxine 50 mcg tablet 50 mcg PO HS thyroid 30 days ##30 11/19/17 08/07/23 aspirin 81 mg tablet,delayed 81 mg PO HS heart 01/10/19 08/07/23 keke
[2023-08-11 10:48] LABS: UTC Influenza A Antigen Negative (Negative); UTC Influenza B Antigen Negative (Negative)
[2023-08-11 10:58] VITALS: BP 131/73; PULSE 75; RESP 20; TEMP 37.3; O2SAT 97
[2023-08-11 11:14] LABS: Influenza A, PCR Not Detected (NotDetected); Influenza B, PCR Not Detected (NotDetected)
[2023-08-11 11:52] LABS: Coronavirus 19, PCR Detected (NotDetected)
== END 2023-08-11 11:05 | disposition home or self-care (01) ==
PROVIDERS: Emergency Provider Nurse Practitioner Family; PCP Internal Medicine Adolescent Medicine
DX: U07.1 COVID-19 (principal); J20.9 Acute bronchitis, unspecified; R50.9 Fever, unspecified; R05.8 Other specified cough; R09.81 Nasal congestion; I10 Essential (primary) hypertension; E78.5 Hyperlipidemia, unspecified
CPT/HCPCS: 87636; 87804; 99204; 99212; G0463

== ENCOUNTER 2024-04-16 12:54 | Outpatient (CLI) | payer MEDICARE, SELFPAY ==
[2024-04-16 13:26] LABS: Basophils # 0.1 K/mm3 (0-0.2); Eosinophils # 0.4 K/mm3 (0.0-0.4); Eosinophils % 6.6 % (0.1-12.0); Hemoglobin 12.2 g/dL (12.2-16.2); Lymphocytes % 19.4 % (10-50); Mean Corpuscular HGB Conc 31.3 g/dL (31.8-35.4); Mean Corpuscular Hemoglobin 29.9 pg (27.0-31.2); Mean Corpuscular Volume 95.6 fl (81-99); Mean Platelet Volume 8.7 fl (7.4-10.4); Monocytes # 0.4 K/mm3 (0.1-1.0); Monocytes % 7.8 % (1.7-9.3); Neutrophils # 3.4 K/mm3 (1.8-7.8); Neutrophils % 64.2 % (37.0-80.0); Platelet Count 273 K/mm3 (142-424); Red Blood Count 4.08 M/mm3 (4.20-5.40); Red Cell Distribution Width 14.4 % (11.5-17.5); White Blood Count 5.3 K/mm3 (4.8-10.8)
[2024-04-16 14:14] LABS: Alanine Aminotransferase 18 U/L (12-78); Albumin Level 3.4 g/dl (3.5-5.0); Albumin/Globulin Ratio 1.2 (1.1-1.8); Alkaline Phosphatase 110 U/L (38-126); Anion Gap 9.5 mEq/L (5-15); Aspartate Amino Transferase 36 U/L (14-36); Bilirubin,Total 0.4 mg/dl (0.2-1.3); Blood Urea Nitrogen 21 mg/dl (7-17); Calcium 8.8 mg/dl (8.4-10.2); Carbon Dioxide 26 mmol/L (22.0-30.0); Chloride 108 mmol/L (98-107); Chol/HDL Ratio 2.7 (1-3.5); Cholesterol 148 mg/dl (140-200); Estimated Glomerular Filt Rate 40 ml/min (>60); GFR (African American) 48 ML/MIN (>60); Globulin 2.9 g/dL (1.3-3.2); Glucose 74 mg/dl (74-100); HDL Cholesterol 55 mg/dl (40-60); Potassium 4.5 mmoL/L (3.5-5.1); Sodium 139 mmol/L (136-145); Total Protein,Serum 6.3 g/dl (6.3-8.2); Triglycerides 148 mg/dl (30-150); VLDL Cholesterol 30 mg/dL (0-40)
[2024-04-16 14:25] LABS: Direct LDL Cholesterol 51.79 mg/dL (100-129)
[2024-04-16 15:35] LABS: Thyroid Stimulating Hormone 2.66 uIU/mL (0.465-4.68)
== END 2024-04-16 23:59 | disposition home or self-care (01) ==
LOC: LAB 12:56
PROVIDERS: PCP Internal Medicine Adolescent Medicine; Visit Provider Internal Medicine Adolescent Medicine
DX: E03.9 Hypothyroidism, unspecified (principal); E78.5 Hyperlipidemia, unspecified; E21.3 Hyperparathyroidism, unspecified; I25.119 Atherosclerotic heart disease of native coronary artery with unspecified angina pectoris
CPT/HCPCS: 36415; 80050; 80053; 80061; 83970; 84443; 85025

== ENCOUNTER 2024-05-19 13:30 | Outpatient (CLI) | payer MEDICARE, SELFPAY ==
[2024-05-19 13:41] LABS: Microscopic, Urine URINE MICROSCOPIC (MICROSCOPIC)
[2024-05-19 14:01] LABS: Basophils # 0.1 K/mm3 (0-0.2); Basophils % 1.9 % (0.1-2.0); Eosinophils # 0.4 K/mm3 (0.0-0.4); Eosinophils % 7.4 % (0.1-12.0); Hematocrit 39.3 % (37.0-47.0); Hemoglobin 12.7 g/dL (12.2-16.2); Lymphocytes # 1.1 K/mm3 (0.7-4.5); Lymphocytes % 20.7 % (10-50); Mean Corpuscular HGB Conc 32.4 g/dL (31.8-35.4); Mean Corpuscular Hemoglobin 30.4 pg (27.0-31.2); Mean Platelet Volume 8.5 fl (7.4-10.4); Monocytes # 0.4 K/mm3 (0.1-1.0); Monocytes % 7.5 % (1.7-9.3); Neutrophils # 3.4 K/mm3 (1.8-7.8); Neutrophils % 62.5 % (37.0-80.0); Platelet Count 283 K/mm3 (142-424); Red Blood Count 4.18 M/mm3 (4.20-5.40); Red Cell Distribution Width 14.7 % (11.5-17.5); White Blood Count 5.5 K/mm3 (4.8-10.8)
[2024-05-19 14:27] LABS: Albumin Level 3.7 g/dl (3.5-5.0); Anion Gap 6.1 mEq/L (5-15); Blood Urea Nitrogen 27 mg/dl (7-17); Carbon Dioxide 29 mmol/L (22.0-30.0); Chloride 107 mmol/L (98-107); Estimated Glomerular Filt Rate 31 ml/min (>60); GFR (African American) 38 ML/MIN (>60); Glucose 100 mg/dl (74-100); Phosphorous 4.2 mg/dl (2.5-4.5); Potassium 4.1 mmoL/L (3.5-5.1); Sodium 138 mmol/L (136-145)
[2024-05-19 14:31] LABS: Appearance,Urine CLEAR (Clear); Blood, Urine Negative (Negative); Color,Urine YELLOW (Yellow); Glucose,Urine (UA) Negative (Negative); Ketones,Urine Negative (Negative); Leukocyte Esterase,Urine TRACE (Negative); Nitrate,Urine Negative (Negative); Protein,Urine Negative (Negative); Specific Gravity, Urine 1.025 (1.005-1.030); Urobilinogen,Urine 0.2 EU/dl (0.2)
[2024-05-19 14:42] LABS: Bilirubin,Urine 1+ (Negative)
[2024-05-19 14:43] LABS: Bacteria,Urine Trace /lpf
[2024-05-19 14:46] LABS: Intact Parathyroid Hormone 130.8 pg/mL (7.5-53.5)
[2024-05-19 15:32] LABS: Total Protein,Urine Random < 5.0 mg/dL (0.0-12.0)
[2024-05-19 15:35] LABS: Creatinine,Urine Random 246 mg/dL (Not Estab.)
[2024-05-19 23:17] LABS: 25-OH Vitamin D, Total 65.8 ng/mL (30-100)
== END 2024-05-19 23:59 | disposition home or self-care (01) ==
LOC: LAB 13:33
PROVIDERS: PCP Internal Medicine Adolescent Medicine; Visit Provider Nurse Practitioner
DX: N18.32 Chronic kidney disease, stage 3b (principal); N25.81 Secondary hyperparathyroidism of renal origin
CPT/HCPCS: 36415; 80069; 81001; 82306; 82570; 83970; 84156; 85025

== ENCOUNTER 2024-10-22 13:13 | Outpatient (CLI) | payer MEDICARE, SELFPAY ==
[2024-10-22 14:20] LABS: Albumin Level 3.8 g/dl (3.5-5.0); Chloride 104 mmol/L (98-107); Potassium 4.1 mmoL/L (3.5-5.1); Sodium 140 mmol/L (136-145)
[2024-10-22 14:22] LABS: Alanine Aminotransferase 16 U/L (12-78); Aspartate Amino Transferase 37 U/L (14-36); Blood Urea Nitrogen 19 mg/dl (7-17); Estimated Glomerular Filt Rate 36 ml/min (>60); GFR (African American) 44 ML/MIN (>60)
[2024-10-22 14:23] LABS: Albumin/Globulin Ratio 1.5 (1.1-1.8); Alkaline Phosphatase 128 U/L (38-126); Anion Gap 11.1 mEq/L (5-15); Bilirubin,Total 0.2 mg/dl (0.2-1.3); Calcium 9.4 mg/dl (8.4-10.2); Carbon Dioxide 29 mmol/L (22.0-30.0); Globulin 2.5 g/dL (1.3-3.2); Glucose 83 mg/dl (74-100); Magnesium 1.9 mg/dl (1.6-2.3); Total Protein,Serum 6.3 g/dl (6.3-8.2)
[2024-10-22 14:41] LABS: Free T4 (Free Thyroxine) 1.45 ng/dl (0.78-2.19)
[2024-10-22 14:54] LABS: Thyroid Stimulating Hormone 3.46 uIU/mL (0.465-4.68)
[2024-10-22 16:10] LABS: Intact Parathyroid Hormone 24.6 pg/mL (7.5-53.5)
[2024-10-22 16:25] LABS: Hemoglobin A1C 5.5 % (4.0-6.0)
[2024-10-23 15:48] LABS: Albumin 3.2 g/dL (2.9-4.4); Alpha-1-Globulin 0.3 g/dL (0.0-0.4); Alpha-2-Globulin 0.8 g/dL (0.4-1.0); Free Kappa Lt Chains 55.9 mg/L (3.3-19.4); Free Lambda Lt Chains 53.9 mg/L (5.7-26.3); Gamma Globulin 1.1 g/dL (0.4-1.8); Protein, Total 6.4 g/dL (6.0-8.5)
[2024-10-23 17:53] LABS: Calcium, Ionized 5.2 mg/dL (4.5-5.6)
[2024-10-24 16:18] LABS: Immunoglobulin A, Qn 279 mg/dL (64-422); Immunoglobulin G, Qn 1108 mg/dL (586-1602); Immunoglobulin M, Qn 178 mg/dL (26-217)
[2024-10-29 11:24] LABS: PDF SCANNED IMAGE
== END 2024-10-22 23:59 | disposition home or self-care (01) ==
LOC: LAB 13:16
PROVIDERS: PCP Internal Medicine Adolescent Medicine; Visit Provider Psychiatry & Neurology Neurology
DX: R20.0 Anesthesia of skin (principal); R20.2 Paresthesia of skin
CPT/HCPCS: 36415; 80053; 82330; 82784; 83036; 83735; 83883; 83970; 84155; 84165; 84439; 84443; 86334

== ENCOUNTER 2024-10-28 13:05 | Outpatient (CLI) | payer MEDICARE, SELFPAY ==
--- NOTE | 2024-10-28 13:10 | CA_ITS ---
APPROVED REPORT EXAM: Comprehensive 2D, Doppler, and color-flow Echocardiogram Practical Nursing Faculty: Kirsty Bass CRT Ht: 5 ft 9 in Wt: 167lbs BSA: 1.91 BP: 114/61 mmHg Indications: CAD, Hyperlipidemia, Hypertension/HDD, stent, phtn, DD 2D Dimensions LA Volume 36.20 mL LA Volume Index 18.50 mL/m2 (M/F) 16-34 M-Mode Dimensions RVDd 3.34 cm (0.9-2.6) LA Diam 3.70 cm (1.9-4.0) LVDd 3.96 cm (3.5-5.7) LVDs 1.98 cm (3.5-5.7) IVSd 1.34 cm (0.6-1.1) PWd 0.80 cm (0.6-1.1) EF (Teich) 81.80% FS 50.00% EDV (Teich) 68.30 mL TAPSE 1.98 (<1.7) ESV (Teich) 12.40 mL LV Diastology E Decel Time 357 (160-240 msec) E/A Ratio 0.75 MED A' 12.40 cm/s LAT A' 13.40 cm/s Aortic Valve AO Peak GR. 10.70 mmHg Mitral Valve MV A Velocity 101.0 (40-130 cm/s) E/A Ratio 0.75 Pulmonary Valve PV Peak Velocity 136.0 (50-150 cm/s) Tricuspid Valve TR P. Velocity 263.00 cm/s RAP Estimate 10.00 mmHg RVSP 37.60 mmHg Left Ventricle The left ventricle is normal size. The left ventricular systolic function is normal. The left ventricular ejection fraction is within the normal range. There is increased LV wall thickness. There is normal LV segmental wall motion. Transmitral Doppler flow pattern suggests impaired LV relaxation. LVEF is 55%. Right Ventricle The right ventricle is normal size. The right ventricular systolic function is normal. Atria The left atrium is mildly dilated. The right atrium is mildly dilated. There is no Doppler evidence of interatrial shunt. Aortic Valve The aortic valve is mildly thickened. There is no aortic valvular stenosis. No aortic regurgitation is present. Mitral Valve The mitral valve is normal in structure. No evidence of mitral valve stenosis. Trace mitral regurgitation. Tricuspid Valve The tricuspid valve leaflets are thin and pliable. Mild tricuspid regurgitation. RVSP is 25-30 mmHg. Pulmonic Valve The pulmonary valve is normal in structure. Trace pulmonic regurgitation. Great Vessels The aortic root is normal in size. IVC is normal in size and collapses >50% with inspiration. Pericardium There is no pericardial effusion. Other Information Study Quality: Fair Conclusion Normal biventricular systolic function. Mild biatrial dilation. Mild TR. Electronically signed by : Christy Adan MD 11/04/2024 11:00:03
== END 2024-10-28 23:59 | disposition home or self-care (01) ==
LOC: RT 13:06
PROVIDERS: PCP Internal Medicine Adolescent Medicine; Visit Provider Physician Assistant
DX: I51.7 Cardiomegaly (principal); I36.1 Nonrheumatic tricuspid (valve) insufficiency; R06.09 Other forms of dyspnea
CPT/HCPCS: 93306

== ENCOUNTER 2024-12-24 09:54 | Outpatient (CLI) | payer MEDICARE, SELFPAY ==
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
--- OUTSIDE RECORDS SUMMARY | 2024-12-24 09:56 | XMS_ITS ---
Care Plan - [facility], [facility] Created on: December 24, 2024 Naty Avila : 1945 Sex: Female Author Organization [facility], [facility] Address [address] [place] [phone] Phone Care Team Providers Care Drink Mixer Name Role Phone ANABELL JORGENSEN, ALEJANDRA Unavailable [phone] Corazon JORGENSEN, Rosalio Unavailable [phone]
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
--- OUTSIDE RECORDS SUMMARY | 2024-12-24 09:56 | XMS_ITS | Clinical Summary ---
Author Organization [facility] , [facility] Address [address] [place] [address] Phone Care Team Providers Care Vamp Liner Name Role Phone ANABELL JORGENSEN, ALEJANDRA Unavailable [phone] Corazon JORGENSEN, Rosalio Unavailable [phone] Reason for Visit and Chief Complaint The Chief Complaint is: bilateral knee pain Problems Includes: Problems addressed during this encounter and other active Problems All Visits Onset Date Resolved Date Provider Condition S tatus Joint Pain in Both Knees 10/21/2024 Rosalio polo MD Active Last Documented On 1:30PM ; [facility] Plan of Treatment - Patient screened for future fall risk: documentation of any fall with injury in past year - Last Documented On 11/20/2024 4:28PM ; [facility] Fall Risk Assessment: This patient has [...] with the patient. - Last Documented On 11/20/2024 4:28PM ; [facility] Assessments Includes: Assessments from this encounter No Assessments Recorded Medical Equipment - Implanted Devices Includes: Current Devices No Medical Equipment Recorded Medications Includes: Medications discussed during this encounter and other current Medications Current Medications (continue as prescribed) Atorvastatin Calcium 20 MG Oral Tablet 10/09/2024 Pr ovider: Diagnosis: Last Documented On 1:30PM By Emelia Sahu ; [facility] Gabapentin 100 MG Oral Capsule 10/09/2024 Provider: ALEJANDRA HUNG MD Diagnosis: Last Documented On 1:30PM By Emelia Sahu ; [facility] PARoxetine HCl 40 MG Oral Tablet 10/09/2024 Provider : ALEJANDRA HUNG MD Diagnosis: Last Documented On 1:30PM By Emelia Sahu ; [facility] Levothyroxine Sodium 50 MCG Oral Tablet 10/03/2024 Mackenzie alvarez: ALEJANDRA HUNG MD Diagnosis: Last Documented On 1:30PM By Emelia Sahu ; [facility] Metoprolol Succinate ER 25 M G Oral Tablet Extended Release 24 Hour 09/29/2024 Provider: Diagnosis: Last Documented On 1:30PM By Emelia Sahu ; [facility] Oxccbuejlc-Byvvlpj-Pakdbsfa 50-325-40 MG Oral Capsule 09/24/2024 Provider: ALEJANDRA HUNG MD Diagnosis: Last Documented On 1:30PM By Emelia Sahu ; [facility] PARoxetine HCl 40 MG Oral Tablet 09/09/2024 Provider : ALEJANDRA HUNG MD Diagnosis: Last Documented On 1:30PM By Emelia Sahu ; [facility] Furosemide 40 MG Oral Tablet 09/08/2024 Provider: Diagnosis: Last Documented On 1:30PM By Emelia Sahu ; [facility] Gabapentin 100 MG Oral Capsule 09/03/2024 Provider: ALEJANDRA HUNG MD Diagnosis: Last Documented On 1:30PM By Emelia Sahu ; [facility] Acyclovir 800 MG Oral Tablet 08/12/2024 Provider: ALEJANDRA HUNG MD Diagnosis: Last Documented On 1:30PM By Emelia Sahu ; [facility] Isosorbide Mononitrate ER 30 MG Oral Tablet Extended Release 24 Hour 08/12/2024 Provider: Diagnosis: Last Documented On 1:30PM By Emelia Sahu ; [facility] Medications Administered Includes: Administered Medications from this encounter No Administered Medications Recorded Vital Signs Includes: Vital Signs from this encounter Vital Name 11/20/2024 02:52P Height (in) 69 Weight (lb) 167 Body Mass Index 24.7 Body Surface Area 1.9 Note: Last Documented: On 11/20/2024 2:52PM ; [facility] Results Includes: Results discussed during this [...] documented Patient here for bilateral Orthovisc injection 4 of series. Review of systems: All systems [...] Patient was given bilateral Orthovisc injection series 4 of the knee today. She will call us as needed for follow up. Social History Description Last Updated Caffeine use 10/21/2024 Last Documented On 2:51PM ; [facility] Exercising regularly 10/21/2024 Last Documented On 2:51PM ; [facility] No recent change in diet 10/21/2024 Last Documented On 2:51PM ; [facility] Not a current smoker. 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 Last Documented On 2:51PM ; [facility] Smoking Status Unknown Procedures and Surgical History Includes: Procedures from this encounter Procedures Code Diagnosis Performing Provider Service Location Service Date DRAIN/INJECT, JOINT/BURSA (Bilateral Procedure) Bilateral primary osteoarthritis of knee Melisa Mullins PA-C [facility] 11/20/2024 Last Documented On 5 3:12PM ; [facility] Surgical History Last Updated History of hysterectomy 10/21/2024 Last Documented On 5 2:51PM ; [facility] Past Surgical History: cardiac stent/LAD (95% blocked) 10/21/2024 Last Documented On 5 2:51PM ; [facility] Medical History Includes: Medical History addressed during this encounter Description Last Updated 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 ~contusi on on back of head 10/21/2024 Last Documented On 5 2:51PM ; [facility] History of depression 10/21/2024 Last Documented On 5 2:51PM ; [facility] History of Heart Attack 10/21/2024 Last Documented On 5 2:51PM ; [facility] History of heart disease 10/21/2024 Last Documented On 5 2:51PM ; [facility] History of Heartburn / Acid Reflux 10/21 Last Documented On 5 2:51PM ; [facility] History of hepatitis A 10/21/2024 Last Documented On 5 2:51PM ; [facility] History of History of Blood Clots 2024 Last Documented On 2:51PM ; [facility] History of Sleep Apnea 10/21/2024 Last Documented On 2:51PM ; [facility] History of Thyroid Disease 10/21/2024 Last Documented On 5 2:51PM ; [facility] Use of CPAP 10/21/2024 Last Documented On 2:51PM ; [facility] Family History Includes: Family History addressed during this encounter Description Last Updated Diabetes mellitus 10/21/2024 Last Documented On 5 2:51PM ; [facility] Family history of cancer 10/21/2024 Last Documented On 5 2:51PM ; [facility] Family history of heart disease 10/21/19 Last Documented On 5 2:51PM ; [facility] Family history of osteoporosis Last Documented On 5 2:51PM ; [facility] Family history of systemic hypertension 10/21/2024 Last Documented On 2:51PM ; [facility] Review of Systems Includes: Review of [...] 10/21/2024 Active Last Documented On 2:51PM ; [facility] Encounters Encounter Provider Location Date Check-In Time Check-Out Time Diagnosis Specialty Pharmacy [facility] Injection Melisa Mullins PA-C [facility] 11/21/19 2:58PM 3:33PM Insurance Includes: Active Insurance Policies Plan Name Member ID Group # Subscriber Relationship Effect marc Dates 1 - [employer] [id number] Naty Avila Self Clinical Notes Includes: Clinical Notes from this encounter * Progress note Date Encounter Last Documented by 11/20/2024 Specialty Pharmacy [facility] Injection Last documented on 11/20/2024; 4:28 PM, Melisa Mullins PA-C; [facility] Active Problems & Conditions - Joint [...] documented Patient here for bilateral Orthovisc injection 4 of series. Review of systems: All systems [...] Patient was given bilateral Orthovisc injection series 4 of the knee today. She will call us as needed for follow up. Current Medication - Acyclovir 800 MG Oral Tablet 90 days, 0 refills - Atorvastatin Calcium 20 MG Oral Tablet 90 days, 0 refills - Caphmstczz-Cywnpwr-Fqowijee 50-325-40 MG Oral Capsule 30 days, 0 [...] using drugs. Habits: Exercising regularly. 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 Allergies - Penicillins Family History Cancer Heart [...] allergic reaction. Physical Findings - Vitals taken 11/20/2024 02:52 pm ah Height 69 in Weight 167 lbs [...] Care Team - ALEJANDRA HUNG MD - WEIGH MACHINE OPERATOR Health Reminders - Assess BMI satisfied 11/20/2024. - Assess Tobacco Use satisfied 11/20/2024.
--- OUTSIDE RECORDS SUMMARY | 2024-12-24 09:56 | XMS_ITS | Continuity of Care Document ---
Author Name [facility] Organization [facility] Care Team Providers Care Director Quality Assurance Name Role Phone [facility] Unavailable Unavailable Problems Combined list of problems from Department of Defense and Veterans Affairs facilities. It does not include entries that were removed or entered in error. Problem Status Onset Date Problem Type Date of Resolution Comments Source Diagnosis: ICD-10-CM Z71.0 Prsn encntr hlth serv to consult on behalf of another person Active Diagnosis [facility] Encounters Combined list of: 1) Encounters from Department of Veterans Affairs facilities going backup to the last 18 months, not all VA inpatient encounters are included; 2) Encounters from the Department of [facility] facilities going backup to 280 months. Location Location Details Encounter Type Encounter Number Reason For Visit Attending Provider ADM Date DC Date Status Disposition Source [facility] HC PRO PHONE CALL 21-30 MIN [id number] Diagnos is: ICD-10- CM Z71.0 Prsn encntr hlth serv to consult on behalf of another person PRINCESS RAHMAN 11/20 [place] [facility] Outpatient Encounter [id number] 12/23 [place] [facility]
--- OUTSIDE RECORDS SUMMARY | 2024-12-24 09:56 | XMS_ITS | Continuity of Care Document ---
Author Organization [facility], SURGERY SCHEDULE Address [facility] [place] [address] Care Team Providers Care End Maker Name Role Phone ANABELLJOSEALEJANDRA Primary Care Provider ANDREA JORDAN Neurologist SHAKEEL WHITLOCK Case Managers Assessment No assessment recorded. Plan of Treatment Reminders Order Date Submit Date Provider Last Modified By Organization Details Last Modified Time Details Appointments POST OP GLOBAL 2024 11:00A M BIBI VASQUES PA-C Not available Not available Not available NEW PATIENT O 2024 02:00P M LARISA VIGIL MD Not available Not available Not available Lab None recorded . Referral None recorded . Procedures None recorded . Surgeries None recorded . Imaging None recorded . Medication Orders None recorded . Patient TargetsNo targets recorded. Patient InstructionsNo instructions recorded. Reason for Referral None Reported. Results Created Date Observation Date Name Description Value Unit Range Abnormal Flag Note LastModifiedBy Organization Detail LastModifiedTime 11/27/19 25 10/01/2024 elect romyo gram + nerve condu ction study No observ ation record ed. Not Available 2024 07:43:18 Result Notes None recorded. Problems No Known Problems Procedures Surgical History Date Name Laterality Status Provider Name and Address Organization Details Recorded Time 5 Op Note completed ALEJANDRA KOVACS MD [address] [place], [address], [facility] 12/16/2024 10:02:57 3 Cerumen removal - Instruments, Unilateral completed Meredith Gil [facility] 01/08/2023 13:35:16 3 Tympanogram completed SCOOBY DO, AUD [address] [place], [address], [facility] 11/06/2022 15:35:51 3 Audiogram completed SCOOBY DO, AUD [address] [place], [address], [facility] 11/06/2022 15:35:49 0 Ears/Nose/Throa t Surgery completed Delilah Schreiber [facility] 11/06/2022 15:21:43 Imaging Results None recorded. Procedure Notes None recorded. Medical Equipment None Reported. Allergies Allergen ID Allergen Name Allergen Category Reaction Reaction Severity Criticality Documentation Date Start Date Code Code System Note Provider Name and Address Organization Details Recorded Time [id number] E-Mycin medicatio n Not available Not available Not available 07/21/20162008 8 RxNorm Comme nt: Creat ed By: Husam Chin; Creat ed Date: 07/06 12:12 :19 PM; Not Available [facility] 6 04:40:51 [id number] Levaquin medicatio n Not available Not available Not available 07/21/2016200899 2 RxNorm Comme nt: Creat ed By: Husam Chin; Creat ed Date: 07/06 12:13 :06 PM; Not Available [facility] 6 04:40:51 [id number] Voltaren medicatio n Not available Not available Not available 07/21/20162008 6 RxNorm Comme nt: Creat ed By: Husam Chin; Creat ed Date: 07/06 12:03 :53 PM; Not Available [facility] 6 04:40:51 [id number] Product containin g penicilli n (product) medicatio n Not available Not available Not available 07/21/20162008 47144 8001 SNOMED Comme nt: Creat ed By: Husam hCin; Creat ed Date: 07/06 12:03 :32 PM; Not Available [facility] 6 09:53:23 Medications Name Sig Start Date Stop Date Status Note LastModified by Organization Details LastModified Time furosemid e 40 mg tablet TAKE ONE TABLET BY MOUTH ON Sunday, , AND Sunday FOR fluid 12/12 completed Not Available Not Available Not Available betametha sone valerate 0.1 % topical ointment apply TO BOTH ear canals ONCE A WEEK NEEDED active Not Available Not Available No t Available promethaz ine-DM 6.25 mg-15 mg/5 mL oral syrup TAKE 5 ML BY MOUTH EVERY 6 HOURS NEEDED FOR COUGH 12/12 completed Not Available Not Available Not Available prednison e 10 mg tablet TAKE 4 TABLETS BY MOUTH ONCE DAILY FOR 3 DAYS THEN TAKE 2 DAILY FOR 3 DAYS, THEN TAKE 1 TAB DAILY FOR 3 DAYS 12/12 completed Not Available Not Available Not Available doxycycli ne hyclate 100 mg capsule TAKE ONE CAPSULE BY MOUTH TWICE DAILY ON DAY 1 THEN TAKE ONE CAPSULE EVERY DAY FOR SIX DAYS -- FINISH ALL MEDICINE -- active Not Available Not Available No t Available atorvasta tin 20 mg tablet TAKE ONE TABLET BY MOUTH EVERY DAY AT BEDTIME FOR choleste rol active Not Available Not Available No t Available isosorbid e mononitra te ER 30 mg tablet,ex tended release 24 hr TAKE ONE TABLET BY MOUTH EVERY DAY active Not Available Not Available No t Available tramadol 50 mg tablet TAKE 1 TABL PO Q 6 HRS PRN FOR SEVERE POST SURGICAL PAIN 2024 active Not Available Not Available Not Avai lable acyclovir 800 mg tablet TAKE ONE TABLET BY MOUTH DAILY active Not Available Not Available No t Available benzonata te 100 mg capsule TAKE 1 CAPSULE BY MOUTH THREE TIMES DAILY NEEDED FOR COUGH 12/12 completed Not Available Not Available Not Available levothyro xine 50 mcg tablet TAKE ONE TABLET BY MOUTH EVERY DAY active Not Available Not Available No t Available butalbita l-aspirin -caffeine 50 mg-325 mg-40 mg capsule TAKE ONE CAPSULE BY MOUTH EVERY 6 HOURS NEEDED active Not Available Not Available No t Available nitroglyc anat 0.4 mg sublingua l tablet DISSOLVE 1 TABLET UNDER THE TONGUE EVERY 5 MINUTES NEEDED FOR CHEST PAIN. DO NOT EXCEED A TOTAL OF 3 DOSES IN 15 MINUTES. IF NO RELIEF AFTER 3 DOSES CALL 911/GO TO ER active Not Available Not Available No t Available allopurin ol 300 mg tablet TAKE ONE TABLET BY MOUTH EVERY DAY active Not Available Not Available No t Available aspirin 81 mg tablet Daily active Duration : 30 days;Scott quency: daily;Me dication Descript ion: aspirin; Route:or al; refills: 0; Quantity :30 Not Available Not Available Not Available furosemid e 20 mg tablet TAKE ONE TABLET BY MOUTH EVERY DAY NEEDED FOR fluid; TAKE TWO TABLETS BY MOUTH ON sunday, , AND sunday active Not Available Not Available No t Available gabapenti n 100 mg capsule TAKE ONE CAPSULE BY MOUTH THREE TIMES DAILY NEEDED MAY CAUSE DROWSINE SS active Not Available Not Available No t Available metoprolo l succinate ER 25 mg tablet,ex tended release 24 hr TAKE ONE TABLET BY MOUTH EVERY DAY active Not Available Not Available No t Available paroxetin e 40 mg tablet TAKE ONE TABLET BY MOUTH EVERY DAY active Not Available Not Available No t Available colchicin e 0.6 mg tablet TAKE ONE TABLET BY MOUTH TWICE DAILY NEEDED active Not Available Not Available No t Available cefdinir 300 mg capsule TAKE 1 CAPSULE BY MOUTH TWICE DAILY 12/12 completed Not Available Not Available Not Available esomepraz ole magnesium 20 mg capsule,d elayed release TAKE 1 CAPSULE BY MOUTH EVERY DAY active Not Available Not Available No t Available calcium carbonate active Medicati on Descript ion: calcium carbonat e; Route:or al; refills: 0; Quantity :3 Not Available Not Available Not Available Coumadin Daily 11/26 completed Frequenc y: daily;Me dication Descript ion: warfarin ; Route:or al; refills: 5; Quantity :30 tablet Not Available Not Available Not Available Darvocet- N 100 11/26 completed Duration : 10 days;Alt Frequenc y: prn;Medi cation Descript ion: acetamin ophen-pr opoxyphe ne; Dosage:1 ; Route:or al; refills: 0; Quantity :30 tablet Not Available Not Available Not Available Paxil Daily 12/12 completed Frequenc y: daily;Me dication Descript ion: paroxeti ne; Dosage:1 ; Route:or al; refills: 5; Quantity :30 Not Available Not Available Not Available Bystolic active Medicati on Descript ion: nebivolo l hydrochl oride; Route:or al; refills: 0 Not Available Not Available Not Available guaifenes in ER 600 mg tablet, extended release 12 hr TAKE 1 TO 2 TABLET(S ) BY MOUTH TWICE DAILY NEEDED FOR congesti on 12/12 completed Not Available Not Available Not Available Vitals None Recorded Social History Question Answer Notes LastModified by Organizat ion Details LastModified Time Tobacco Smoking Status Never Smoker Delilah Schreiber [facility] 11/06/2022 15:19:09 What Is Your Level Of Alcohol Consumption? None Information not available 11/06/2022 What Was The Date Of Your Most Recent Tobacco Screening? 11/06/2022 Information not available 11/06/2022 Sex: Unknown Functional Status None recorded. Mental Status None recorded. Family History Relationship Description Onset Age of this Age Resolved Age Notes LastModified by Organization Details LastModified Time Brother Disorder of thyroid gland [email or web address] Not available 2022 15:19:18 Brother Hypertensive disorder kthoele Not available 2022 15:20:01 Father Family history of malignant neoplasm colon, prosta te kthoele Not available 11/06/2022 15:19:31 Father Hearing loss kthoele Not availa ble 11/06/2022 15:19:38 Father Heart disease kthoele Not available 2022 15:19:48 Father Hypertensive disorder kthoele Not available 2022 15:20:01 Father Cerebrovascu lar accident kthoele Not available 15:20:09 Father Diabetes mellitus kthoele Not available 2022 15:20:14 Father Kidney disease kthoele Not available 2022 15:20:20 Mother Heart disease kthoele Not available 2022 15:19:48 Mother Hypertensive disorder kthoele Not available 2022 15:20:01 Medical History Condition Response Anxiety Disorder Y Bleeding Disorder Y Arthritis Y Hepatitis Y Acid Reflux (GERD) Y Heart Attack ([place]) Y Migraines Y Thyroid Problems Y Hypertension Y Depression Y Kidney Disease Y Gynecological HistoryNo gynecological history recorded. Obstetrics History GPAL:G 0 P 0 0 0 0 Past Encounters Encounter ID Performer Location Encounter Start Date Encounter Closed Date Diagnosis/Indication Diagnosis SNOMED-CT Code Diagnosis ICD10 Code Diagnosis Note [id number] ALEJANDRA KOVACS MD [facility] [address] [place] [address] 11/26/2024 14:07:33 11/26/2024 15:56:04 Bilateral carpal tunnel syndrome 4259563977 8373153 G56.03 [id number] ALEJANDRA KOVACS MD SURGERY SCHEDULE [address] [place] [address] 12/16/2024 08:42:52 12/16/2024 08:43:50 Health Concerns Section Related Observation LastModified by Organization Detai ls LastModified Time None Recorded Concern Status LastModified by Organization Details LastModified Time None Recorded Payers Encounter Date Sequence Insurance Name Policy Number Policy Tim Covered Member ID Tim Member ID Guarantor Name 12/16/2024 1 [employer] (MEDICARE REPLACEMENT/A DVANTAGE - PPO) Naty Avila [id number] Naty Avila OBGyn Episode No OBEpisode recorded.
--- OUTSIDE RECORDS SUMMARY | 2024-12-24 09:57 | XMS_ITS | Clinical Summary ---
Author Organization [facility] Address [address] [place] [address] Phone Care Team Providers Care Welfare Adviser Name Role Phone ANABELL JORGENSEN, ALEJANDRA Unavailable [phone] Corazon JORGENSEN, Rosalio Unavailable [phone] Reason for Visit and Chief Complaint The Chief Complaint is: bilateral knee pain Problems Includes: Problems addressed during this encounter and other active Problems All Visits Onset Date Resolved Date Provider Condition S tatus Joint Pain in Both Knees 10/21/2024 Rosalio polo MD Active Last Documented On 1:30PM ; [facility] Plan of Treatment - Patient screened for future fall risk: documentation of any fall with injury in past year - Last Documented On 10/30/2024 9:49AM ; [facility] Fall Risk Assessment: This patient has been [...] with the patient. - Last Documented On 10/30/2024 9:49AM ; [facility] Assessments Includes: Assessments from this encounter No Assessments Recorded Medical Equipment - Implanted Devices Includes: Current Devices No Medical Equipment Recorded Medications Includes: Medications discussed during this encounter and other current Medications Current Medications (continue as prescribed) Atorvastatin Calcium 20 MG Oral Tablet 10/09/2024 Pr ovider: Diagnosis: Last Documented On 1:30PM By Emelia Sahu ; [facility] Gabapentin 100 MG Oral Capsule 10/09/2024 Provider: ALEJANDRA HUNG MD Diagnosis: Last Documented On 1:30PM By Emelia Sahu ; [facility] PARoxetine HCl 40 MG Oral Tablet 10/09/2024 Provider : ALEJANDRA HUNG MD Diagnosis: Last Documented On 1:30PM By Emelia Sahu ; [facility] Levothyroxine Sodium 50 MCG Oral Tablet 10/03/2024 Mackenzie alvarez: ALEJANDRA HUNG MD Diagnosis: Last Documented On 1:30PM By Emelia Sahu ; [facility] Metoprolol Succinate ER 25 M G Oral Tablet Extended Release 24 Hour 09/29/2024 Provider: Diagnosis: Last Documented On 1:30PM By Emelia Sahu ; [facility] Napeoxfyii-Ezhgkdz-Qokpefcy 50-325-40 MG Oral Capsule 09/24/2024 Provider: ALEJANDRA HUNG MD Diagnosis: Last Documented On 1:30PM By Emelia Sahu ; [facility] PARoxetine HCl 40 MG Oral Tablet 09/09/2024 Provider : ALEJANDRA HUNG MD Diagnosis: Last Documented On 1:30PM By Emelia Sahu ; [facility] Furosemide 40 MG Oral Tablet 09/08/2024 Provider: Diagnosis: Last Documented On 1:30PM By Emelia Sahu ; [facility] Gabapentin 100 MG Oral Capsule 09/03/2024 Provider: ALEJANDRA HUNG MD Diagnosis: Last Documented On 1:30PM By Emelia Sahu ; [facility] Acyclovir 800 MG Oral Tablet 08/12/2024 Provider: ALEJANDRA HUNG MD Diagnosis: Last Documented On 1:30PM By Emelia Sahu ; [facility] Isosorbide Mononitrate ER 30 MG Oral Tablet Extended Release 24 Hour 08/12/2024 Provider: Diagnosis: Last Documented On 1:30PM By Emelia Sahu ; [facility] Medications Administered Includes: Administered Medications from this encounter No Administered Medications Recorded Vital Signs Includes: Vital Signs from this encounter Vital Name 10/30/2024 09:31A Height (in) 69 Weight (lb) 167 Body Mass Index 24.7 Body Surface Area 1.9 Pain Level 9 Note: clw Last Documented: On 10/30/2024 9:31AM ; [facility] Results Includes: Results discussed during this encounter [...] treatment. 2008 Dr. Toussaint (retired) 2002 [place] 1971 [place] ? History of Injections - - Review of medications documented Patient here for bilateral Orthovisc injection 1 of series. Review of systems: All systems [...] Patient was given bilateral Orthovisc injection series 1 of the knee today. We will repeat injections in 1 week. Social History Description Last Updated Caffeine use 10/21/2024 Last Documented On 5 9:26AM ; [facility] Exercising regularly 10/21/2024 Last Documented On 5 9:26AM ; [facility] No recent change in diet 10/21/2024 Last Documented On 5 9:26AM ; [facility] Not a current smoker. 10/21/2024 Last Documented On 5 9:26AM ; [facility] Not using alcohol 10/21/2024 Last Documented On 5 9:26AM ; [facility] Not using drugs 10/21/2024 Last Documented On 5 9:26AM ; [facility] Working part time 10/21/2024 Last Documented On 5 9:26AM ; [facility] Smoking Status Unknown Procedures and Surgical History Includes: Procedures from this encounter Procedures Code Diagnosis Performing Provider Service Location Service Date DRAIN/INJECT, JOINT/BURSA (Bilateral Procedure) Bilateral primary osteoarthritis of knee Melisa Mullins PA-C [facility] 10/30/2024 Last Documented On 5 10:27AM ; [facility] X-ray 2002 [id number] Last Documented On 5 9:26AM ; [facility] an MRI was performed 2002 [id number] Last Documented On 5 9:26AM ; [facility] Surgical History Last Updated History of hysterectomy 10/21/2024 Last Documented On 5 9:26AM ; [facility] Past Surgical History: cardiac stent/LAD (95% blocked) 10/21/2024 Last Documented On 5 9:26AM ; 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 History of depression 10/21/2024 Last Documented On 5 9:26AM ; [facility] History of Heart Attack 10/21/2024 Last Documented On 5 9:26AM ; [facility] History of heart disease 10/21/2024 Last Documented On 5 9:26AM ; [facility] History of Heartburn / Acid Reflux 10/21 Last Documented On 5 9:26AM ; [facility] History of hepatitis A 10/21/2024 Last Documented On 5 9:26AM ; [facility] History of History of Blood Clots 2024 Last Documented On 5 9:26AM ; [facility] History of Sleep Apnea 10/21/2024 Last Documented On 5 9:26AM ; [facility] History of Thyroid Disease 10/21/2024 Last Documented On 5 9:26AM ; [facility] Use of CPAP 10/21/2024 Last Documented On 5 9:26AM ; [facility] Family History Includes: Family History addressed during this encounter Description Last Updated Diabetes mellitus 10/21/2024 Last Documented On 5 9:26AM ; [facility] Family history of cancer 10/21/2024 Last Documented On 5 9:26AM ; [facility] Family history of heart disease 10/21/19 25 Last Documented On 5 9:26AM ; [facility] Family history of osteoporosis 5 Last Documented On 5 9:26AM ; [facility] Family history of systemic hypertension 10/21/2024 Last Documented On 5 9:26AM ; [facility] Review of Systems Includes: Review of [...] 10/21/2024 Active Last Documented On 2:51PM ; [facility] Encounters Encounter Provider Location Date Check-In Time Check-Out Time Diagnosis [facility] Injection Melisa Mullins PA-C [facility] 10/31/19 9:13AM 9:46AM Insurance Includes: Active Insurance Policies Plan Name Member ID Group # Subscriber Relationship Effect marc Dates 1 - [employer] [id number] Naty Avila Self Clinical Notes Includes: Clinical Notes from this encounter * Progress note Date Encounter Last Documented by 10/30/2024 [facility] Injection Last documented on 10/30/2024; 9:49 AM, Melisa Mullins PA-C; [facility] Active Problems & Conditions - Joint Pain [...] documented Patient here for bilateral Orthovisc injection 1 of series. Review of systems: All systems [...] Patient was given bilateral Orthovisc injection series 1 of the knee today. We will repeat injections in 1 week. Current Medication - Acyclovir 800 MG Oral Tablet 90 days, 0 refills - Atorvastatin Calcium 20 MG Oral Tablet 90 days, 0 refills - Quvrjpxjga-Ikjslld-Mmjkldrp 50-325-40 MG Oral Capsule 30 days, 0 [...] using drugs. Habits: Exercising regularly. Work: Working part time. Allergies - Penicillins Family History Cancer Heart [...] allergic reaction. Physical Findings - Vitals taken 10/30/2024 09:31 am clw Height 69 in Weight 167 lbs Body Mass Index 24.7 kg/m2 Body Surface Area 1.9 m2 Pain Level 9 Previous Tests Imaging: X-Ray: X-ray 2002. MRI [...] Care Team - ALEJANDRA HUNG MD - LEATHER WHITENER Health Reminders - Assess BMI satisfied 10/30/2024. - Assess Tobacco Use satisfied 10/30/2024.
--- OUTSIDE RECORDS SUMMARY | 2024-12-24 09:57 | XMS_ITS | Clinical Summary ---
Author Organization [facility] , [facility] Address [address] [place] [address] Phone Care Team Providers Care Fret Saw Operator Name Role Phone ANABELL JORGENSEN, ALEJANDRA Unavailable [phone] Corazon JORGENSEN, Rosalio Unavailable [phone] Reason for Visit and Chief Complaint The Chief Complaint is: bilateral knee pain Problems Includes: Problems addressed during this encounter and other active Problems All Visits Onset Date Resolved Date Provider Condition S tatus Joint Pain in Both Knees 10/21/2024 Rosalio polo MD Active Last Documented On 1:30PM ; [facility] Plan of Treatment - Patient screened for future fall risk: documentation of any fall with injury in past year - Last Documented On 11/07/2024 9:09AM ; [facility] Fall Risk Assessment: This patient has [...] with the patient. - Last Documented On 11/07/2024 9:09AM ; [facility] Assessments Includes: Assessments from this encounter No Assessments Recorded Medical Equipment - Implanted Devices Includes: Current Devices No Medical Equipment Recorded Medications Includes: Medications discussed during this encounter and other current Medications Current Medications (continue as prescribed) Atorvastatin Calcium 20 MG Oral Tablet 10/09/2024 Pr ovider: Diagnosis: Last Documented On 1:30PM By Emelia Sahu ; [facility] Gabapentin 100 MG Oral Capsule 10/09/2024 Provider: ALEJANDRA HUNG MD Diagnosis: Last Documented On 1:30PM By Emelia Sahu ; [facility] PARoxetine HCl 40 MG Oral Tablet 10/09/2024 Provider : ALEJANDRA HUNG MD Diagnosis: Last Documented On 1:30PM By Emelia Sahu ; [facility] Levothyroxine Sodium 50 MCG Oral Tablet 10/03/2024 Mackenzie alvarez: ALEJANDRA HUNG MD Diagnosis: Last Documented On 1:30PM By Emelia Sahu ; [facility] Metoprolol Succinate ER 25 M G Oral Tablet Extended Release 24 Hour 09/29/2024 Provider: Diagnosis: Last Documented On 1:30PM By Emelia Sahu ; [facility] Axlovpcist-Zbndlez-Txlnxnli 50-325-40 MG Oral Capsule 09/24/2024 Provider: ALEJANDRA HUNG MD Diagnosis: Last Documented On 1:30PM By Emelia Sahu ; [facility] PARoxetine HCl 40 MG Oral Tablet 09/09/2024 Provider : ALEJANDRA HUNG MD Diagnosis: Last Documented On 1:30PM By Emelia Sahu ; [facility] Furosemide 40 MG Oral Tablet 09/08/2024 Provider: Diagnosis: Last Documented On 1:30PM By Emelia Sahu ; [facility] Gabapentin 100 MG Oral Capsule 09/03/2024 Provider: ALEJANDRA HUNG MD Diagnosis: Last Documented On 1:30PM By Emelia Sahu ; [facility], [facility] Acyclovir 800 MG Oral Tablet 08/12/2024 Provider: ALEJANDRA HUNG MD Diagnosis: Last Documented On 1:30PM By Emelia Sahu ; [facility], [facility] Isosorbide Mononitrate ER 30 MG Oral Tablet Extended Release 24 Hour 08/12/2024 Provider: Diagnosis: Last Documented On 1:30PM By Emelia Sahu ; [facility], [facility] Medications Administered Includes: Administered Medications from this encounter No Administered Medications Recorded Vital Signs Includes: Vital Signs from this encounter Vital Name 11/06/2024 04:51P Height (in) 69 Weight (lb) 167 Body Mass Index 24.7 Body Surface Area 1.9 Pain Level 2 Note: clw Last Documented: On 11/06/2024 4:52PM ; [facility], [facility] Results Includes: Results discussed during this [...] documented Patient here for bilateral Orthovisc injection 2 of series. She already feels that she getting some relief from the injections. Review of systems: All systems within normal [...] Patient was given bilateral Orthovisc injection series 2 of the knee today. We will repeat injections in 1 week. Social History Description Last Updated Caffeine use 10/21/2024 Last Documented On 5 2:12PM ; [facility] Exercising regularly 10/21/2024 Last Documented On 5 2:12PM ; [facility] No recent change in diet 10/21/2024 Last Documented On 5 2:12PM ; [facility] Not a current smoker. 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 On 5 2:12PM ; [facility] Smoking Status Unknown Procedures and Surgical History Includes: Procedures from this encounter Procedures Code Diagnosis Performing Provider Service Location Service Date DRAIN/INJECT, JOINT/BURSA (Bilateral Procedure) Bilateral primary osteoarthritis of knee Melisa Mullins [facility] 11/06/2024 Last Documented On 5 12:47PM ; [facility] Surgical History Last Updated History of hysterectomy 10/21/2024 Last Documented On 5 2:12PM ; [facility] Past Surgical History: cardiac stent/LAD (95% blocked) 10/21/2024 Last Documented On 5 2:12PM ; [facility] Medical History Includes: Medical History addressed during this encounter Description Last Updated 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 ~contusi on on back of head 10/21/2024 Last Documented On 5 2:12PM ; [facility], [facility] History of depression 10/21/2024 Last Documented On 5 2:12PM ; [facility], [facility] History of Heart Attack 10/21/2024 Last Documented On 5 2:12PM ; [facility] History of heart disease 10/21/2024 Last Documented On 5 2:12PM ; [facility] History of Heartburn / Acid Reflux 10/21 Last Documented On 5 2:12PM ; [facility] History of hepatitis A 10/21/2024 Last Documented On 5 2:12PM ; [facility], [facility] History of History of Blood Clots 2024 Last Documented On 5 2:12PM ; [facility], [facility] History of Sleep Apnea 10/21/2024 Last Documented On 5 2:12PM ; [facility], [facility] History of Thyroid Disease 10/21/2024 Last Documented On 5 2:12PM ; [facility], [facility] Use of CPAP 10/21/2024 Last Documented On 5 2:12PM ; [facility], [facility] Family History Includes: Family History addressed during this encounter Description Last Updated Diabetes mellitus 10/21/2024 Last Documented On 5 2:12PM ; [facility], [facility] Family history of cancer 10/21/2024 Last Documented On 5 2:12PM ; [facility], [facility] Family history of heart disease 10/21/19 Last Documented On 5 2:12PM ; [facility], [facility] Family history of osteoporosis Last Documented On 5 2:12PM ; [facility], [facility] Family history of systemic hypertension 10/21/2024 Last Documented On 5 2:12PM ; [facility], [facility] Review of Systems Includes: Review of [...] 10/21/2024 Active Last Documented On 2:51PM ; [facility] Encounters Encounter Provider Location Date Check-In Time Check-Out Time Diagnosis [facility] In[facility] Mull[facility] 11/07/19 2:07PM 2:47PM Insurance Includes: Active Insurance Policies Plan Name Member ID Group # Subscriber Relationship Effect marc Dates 1 - [employer] [id number] Naty Avila Self Clinical Notes Includes: Clinical Notes from this encounter * Progress note Date Encounter Last Documented by 11/06/2024 [facility] Injection Last documented on 11/07/2024; 9:09 AM, Melisa Mullins PA-C; [facility] Active Problems & Conditions - Joint [...] documented Patient here for bilateral Orthovisc injection 2 of series. She already feels that she getting some relief from the injections. Review of systems: All systems within normal [...] Patient was given bilateral Orthovisc injection series 2 of the knee today. We will repeat injections in 1 week. Current Medication - Acyclovir 800 MG Oral Tablet 90 days, 0 refills - Atorvastatin Calcium 20 MG Oral Tablet 90 days, 0 refills - Ozxqhrewsy-Shepvzb-Moclgojs 50-325-40 MG Oral Capsule 30 days, 0 [...] drugs. Habits: Exercising regularly. 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 Allergies - Penicillins Family History Cancer Heart [...] allergic reaction. Physical Findings - Vitals taken 11/06/2024 04:51 pm clw Height 69 in Weight 167 lbs Body Mass Index 24.7 kg/m2 Body Surface Area 1.9 m2 Pain Level 2 Counseling/Education - Tobacco non-user - Use of [...] Care Team - ALEJANDRA HUNG MD - [employer] Health Reminders - Assess BMI satisfied 11/06/2024. - Assess Tobacco Use satisfied 11/06/2024.
--- OUTSIDE RECORDS SUMMARY | 2024-12-24 09:57 | XMS_ITS ---
Author Organization [facility] , [facility] Address [address] [place] [address] Phone Care Team Providers Care Risk Control Analyst Name Role Phone ANABELL JORGENSEN, ALEJANDRA Unavailable [phone] Corazon JORGENSEN, Rosalio Unavailable [phone] Problems Includes: Active, inactive, and resolved Problems All Visits Onset Date Resolved Date Provider Condition S tatus Joint Pain in Both Knees 10/21/2024 Rosalio polo MD Active Last Documented On 5 1:30PM ; [facility] Plan of Treatment Findings Encounter Date Patient screened for future fall risk: documentation of any fall with injury in past year [facility] Injection with Melisa Mullins PA-C 11/20/2024 Last Documented On 5 4:28PM ; [facility] Patient screened for future fall risk: documentation of any fall with injury in past year [facility] Injection with Melisa Mullins PA-C 11/12/2024 Last Documented On 5 11:37AM ; [facility] Patient screened for future fall risk: documentation of any fall with injury in past year [facility] Injection with Melisa Mullins PA-C 11/06/2024 Last Documented On 5 9:09AM ; [facility] Patient screened for future fall risk: documentation of any fall with injury in past year [facility] Injection with Melisa Mullins PA-C 10/30/2024 Last Documented On 5 9:49AM ; [facility] Patient screened for future fall risk: documentation of any fall with injury in past year Physician Specified with Rosalio Chandra MD 10/21/2024 Last Documented On 4:47PM ; [facility], [facility] Assessments Includes: Assessments for all patient encounters No Assessments Recorded Medical Equipment - Implanted Devices Includes: Current and historical Devices No Medical Equipment Recorded Medications Includes: Current and historical Medications Current Medications (continue as prescribed) Atorvastatin Calcium 20 MG Oral Tablet 10/09/2024 Pr ovider: Diagnosis: Last Documented On 1:30PM By Emelia Sahu ; [facility], [facility] Gabapentin 100 MG Oral Capsule 10/09/2024 Provider: ALEJANDRA HUNG MD Diagnosis: Last Documented On 1:30PM By Emelia Sahu ; [facility], [facility] PARoxetine HCl 40 MG Oral Tablet 10/09/2024 Provider : ALEJANDRA HUNG MD Diagnosis: Last Documented On 1:30PM By Emelia Sahu ; [facility], [facility] Levothyroxine Sodium 50 MCG Oral Tablet 10/03/2024 Mackenzie alvarez: ALEJANDRA HUNG MD Diagnosis: Last Documented On 1:30PM By Emelia Sahu ; [facility], [facility] Metoprolol Succinate ER 25 M G Oral Tablet Extended Release 24 Hour 09/29/2024 Provider: Diagnosis: Last Documented On 1:30PM By Emelia Sahu ; [facility], [facility] Lnzlcxxoah-Avusjdx-Uzdhblvn 50-325-40 MG Oral Capsule 09/24/2024 Provider: ALEJANDRA HUNG MD Diagnosis: Last Documented On 1:30PM By Emelia Sahu ; [facility], [facility] PARoxetine HCl 40 MG Oral Tablet 09/09/2024 Provider : ALEJANDRA HUNG MD Diagnosis: Last Documented On 1:30PM By Emelia Sahu ; [facility], [facility] Furosemide 40 MG Oral Tablet 09/08/2024 Provider: Diagnosis: Last Documented On 1:30PM By Emelia Sahu ; [facility], [facility] Gabapentin 100 MG Oral Capsule 09/03/2024 Provider: ALEJANDRA HUNG MD Diagnosis: Last Documented On 1:30PM By Emelia Sahu ; [facility], [facility] Acyclovir 800 MG Oral Tablet 08/12/2024 Provider: ALEJANDRA HUNG MD Diagnosis: Last Documented On 1:30PM By [facility] Isosorbide Mononitrate ER 30 MG Oral Tablet Extended Release 24 Hour 08/12/2024 Provider: Diagnosis: Last Documented On 1:30PM By Emelia Sahu ; [facility] Medications Administered Includes: Administered Medications in patient's chart No Administered Medications Recorded Vital Signs Includes: Vital Signs from 12/25/2023 through 12/24/2024 Vital Name 11/20/2024 02:52P 11/12/2024 11:34A 11/06/2024 04:51P 10/30/2024 09:31A 10/21/2024 01:58P Height (in) 69 69 69 69 69 Weight (lb) 167 167 167 167 167 Body Mass Index 24.7 24.7 24.7 24.7 24.7 Body Surface Area 1.9 1.9 1.9 1.9 1.9 Pain Level 2 9 10 Note: ah clw clw clw Last Documented: On 11/20/2024 2:52PM ; [facility] On 11/12/2024 11:34AM ; [facility] On 11/06/2024 4:52PM ; [facility] On 10/30/2024 9:31AM ; [facility] On 10/21/2024 1:59PM ; [facility] Results Includes: Results from 12/25/2023 through 12/24/2024 No Results Recorded For Specified Dates History of Present Illness History of Present Illness not supported for this document type No History of Present Illness Recorded Social History Description Last Updated Caffeine use 10/21/2024 Last Documented On 5 4:47PM ; [facility] Exercising regularly 10/21/2024 Last Documented On 5 4:47PM ; [facility] No recent change in diet 10/21/2024 Last Documented On 5 4:47PM ; [facility] Not a current smoker. 10/21/2024 Last Documented On 5 4:47PM ; [facility] Not using alcohol 10/21/2024 Last Documented On 5 4:47PM ; 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 Smoking Status Unknown Procedures and Surgical History Includes: Procedures from 12/25/2023 through 12/24/2024 Procedures Code Diagnosis Performing Provider Service Location Service Date DRAIN/INJECT, JOINT/BURSA (Bilateral Procedure) Bilateral primary osteoarthritis of knee Melisa Mullins PA-C [facility] 11/20/2024 Last Documented On 5 3:12PM ; [facility] DRAIN/INJECT, JOINT/BURSA (Bilateral Procedure) Bilateral primary osteoarthritis of knee Melisa Mullins PA-C [facility] 11/12/2024 Last Documented On 5 1:00PM ; [facility] DRAIN/INJECT, JOINT/BURSA (Bilateral Procedure) Bilateral primary osteoarthritis of knee Melisa Mullins PA-C [facility] 11/06/2024 Last Documented On 5 12:47PM ; [facility] DRAIN/INJECT, JOINT/BURSA (Bilateral Procedure) Bilateral primary osteoarthritis of knee Melisa Mullins PA-C [facility] 10/30/2024 Last Documented On 5 10:27AM ; [facility] X-RAY EXAM OF KNEE 1 OR 2 VIEWS (Bilateral Procedure) [id number] Bilateral primary osteoarthritis of knee Rosalio Chandra MD [facility] 10/21/2024 Last Documented On 5 12:45PM ; [facility], [facility] Surgical History Last Updated History of hysterectomy 10/21/2024 Last Documented On 5 4:47PM ; [facility], [facility] Past Surgical History: cardiac stent/LAD (95% blocked) 10/21/2024 Last Documented On 5 4:47PM ; [facility], [facility] Medical History Includes: Medical History in patient's chart Description Last Updated 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 ~contusi on on back of head 10/21/2024 Last Documented On 5 4:47PM ; [facility], [facility] History of depression 10/21/2024 Last Documented On 5 4:47PM ; [facility] History of Heart Attack 10/21/2024 Last Documented On 5 4:47PM ; [facility] History of heart disease 10/21/2024 Last Documented On 5 4:47PM ; [facility] History of Heartburn / Acid Reflux 10/21 Last Documented On 5 4:47PM ; [facility] History of hepatitis A 10/21/2024 Last Documented On 5 4:47PM ; [facility], [facility] History of History of Blood Clots 2024 Last Documented On 5 4:47PM ; [facility], [facility] History of Sleep Apnea 10/21/2024 Last Documented On 5 4:47PM ; [facility], [facility] History of Thyroid Disease 10/21/2024 Last Documented On 5 4:47PM ; [facility], [facility] Use of CPAP 10/21/2024 Last Documented On 5 4:47PM ; [facility], [facility] Family History Includes: Family History in patient's chart Description Last Updated Diabetes mellitus 10/21/2024 Last Documented On 5 4:47PM ; [facility], [facility] Family history of cancer 10/21/2024 Last Documented On 5 4:47PM ; [facility], [facility] Family history of heart disease 10/21/19 Last Documented On 5 4:47PM ; [facility], [facility] Family history of osteoporosis 5 Last Documented On 5 4:47PM ; [facility], [facility] Family history of systemic hypertension 10/21/2024 Last Documented On 5 4:47PM ; [facility], [facility] Review of Systems Review of Systems not supported for this document type No Review of Systems Recorded Mental Status Description Anxiety Functional Status No Functional Status Recorded Physical Exam Physical Exam not supported for this document type No Physical Exam Recorded Allergies Includes: Active, inactive, and resolved Allergies Substance Type Reaction Onset Date Resolved Date Statu s Penicillins Allergy 10/21/2024 Active Last Documented On 2:51PM ; [facility], [facility] Encounters Includes: Encounters from 12/25/2023 through 12/24/2024 Encounter Provider Location Date Check-In Time Check-Out Time Diagnosis [facility] In[facility] Melisa Mullins PA-C [facility] 11/21/19 2:58PM 3:33PM [facility] In[facility] Melisa Mullins PA-C [facility] 11/13/19 10:49AM 11:31AM [facility] Injection Melisa Mullins PA-C [facility] 11/07/19 2:07PM 2:47PM [facility] In[facility] Melisa Mullins PA-C [facility] 10/31/19 9:13AM 9:46AM Physician Specified Rosalio Chandra MD [facility] 10/21/19 1:29PM 2:21PM Insurance Includes: Active Insurance Policies Plan Name Member ID Group # Subscriber Relationship Effect marc Dates 1 - [employer] [id number] Naty Avila Self Clinical Notes Includes: Signed Clinical Notes starting from 08/10/2022 * Progress note Date Encounter Last Documented by 11/20/2024 [facility] In[facility] Last documented on 11/20/2024; 4:28 PM, Melisa Mullins PA-C; [facility] Active Problems & Conditions - Joint [...] Oral Tablet 90 days, 0 refills - Zeedfrvdzn-Kdglpha-Padcflik 50-325-40 MG Oral Capsule 30 days, 0 [...] drugs. Habits: Exercising regularly. 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 - Assess Tobacco Use satisfied 11/20/2024. * Progress note Date Encounter Last Documented by 11/12/2024 [facility] In[facility] Last documented on 11/12/2024; 11:37 AM, Melisa Mullins PA-C; [facility], [facility] Active Problems & Conditions - Joint [...] Oral Tablet 90 days, 0 refills - Uuohbmqmco-Qgakudr-Ksweawqz 50-325-40 MG Oral Capsule 30 days, 0 [...] drugs. Habits: Exercising regularly. 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 - Assess Tobacco Use satisfied 11/12/2024. * Progress note Date Encounter Last Documented by 11/06/2024 [facility] In[facility] Last documented on 11/07/2024; 9:09 AM, Melisa Mullins PA-C; [facility], [facility] Active Problems & Conditions - Joint [...] Oral Tablet 90 days, 0 refills - Aozpuxlido-Kaesszv-Hfapvrdy 50-325-40 MG Oral Capsule 30 days, 0 [...] drugs. Habits: Exercising regularly. 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 - Assess Tobacco Use satisfied 11/06/2024. * Progress note Date Encounter Last Documented by 10/30/2024 [facility] In[facility] Last documented on 10/30/2024; 9:49 AM, Melisa Mullins PA-C; [facility] Active Problems & Conditions - Joint [...] Oral Tablet 90 days, 0 refills - Xqtqofukzo-Cuxtwhm-Uabasijl 50-325-40 MG Oral Capsule 30 days, 0 [...] drugs. Habits: Exercising regularly. 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 - Assess Tobacco Use satisfied 10/30/2024. * Progress note Date Encounter Last Documented by 10/21/2024 Physician Specified Last jonah tripathi on 10/21/2024; 4:47 PM, Rosalio Chandra MD; [facility] Active Problems & Conditions - Joint [...] she has been treated with PT and fpgo-ijz-ltzpmez medications severe osteoarthritis pain getting worse she [...] Oral Tablet 90 days, 0 refills - Btnxcmgfxd-Nbiiqdj-Anhzzwqz 50-325-40 MG Oral Capsule 30 days, 0 [...] drugs. Habits: Exercising regularly. 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 X-rays show ilhs-vz-tvvi grade 4 changes about the patellofemoral and [...] Care Team - ALEJANDRA HUNG MD - STORE RECEIVING CLERK Health Reminders - Assess BMI satisfied 10/21/2024. - Assess Tobacco Use satisfied 10/21/2024.
[2024-12-24 10:28] LABS: Blood Urea Nitrogen 16 mg/dl (7-17); Estimated Glomerular Filt Rate 34 ml/min (>60); GFR (African American) 41 ML/MIN (>60)
== END 2024-12-24 23:59 | disposition home or self-care (01) ==
LOC: RAD 09:54
PROVIDERS: PCP Internal Medicine Adolescent Medicine; Visit Provider Internal Medicine
DX: I25.10 Atherosclerotic heart disease of native coronary artery without angina pectoris (principal); N28.9 Disorder of kidney and ureter, unspecified
CPT/HCPCS: 36415; 82565; 84520

== ENCOUNTER 2025-03-31 14:59 | Outpatient (CLI) | payer MEDICARE, SELFPAY ==
--- OUTSIDE RECORDS SUMMARY | 2023-12-24 13:32 | XMS_ITS | Continuity of Care Document ---
Author Name [facility] Organization [facility] Care Team Providers Care Feed Crusher Operator Name Role Phone [facility] Unavailable Unavailable Problems Combined list of problems from Department of Defense and Veterans Affairs facilities. It does not include entries that were removed or entered in error. Problem Status Onset Date Problem Type Date of Resolution Comments Source Diagnosis: ICD-10-CM Z71.0 Prsn encntr hlth serv to consult on behalf of another person Active Diagnosis [facility] Encounters Combined list of: 1) Encounters from Department of Veterans Affairs facilities going backup to the last 18 months, not all VA inpatient encounters are included; 2) Encounters from the Department of [facility] facilities going backup to 280 months. Location Location Details Encounter Type Encounter Number Reason For Visit Attending Provider ADM Date DC Date Status Disposition Source [facility] HC PRO PHONE CALL 21-30 MIN [id number] Diagnos is: ICD-10- CM Z71.0 Prsn encntr hlth serv to consult on behalf of another person PRINCESS RAHMAN 11/20 [place] [facility] Outpatient Encounter [id number] 12/23 [place] [facility]
--- OUTSIDE RECORDS SUMMARY | 2024-11-29 17:30 | XMS_ITS ---
Author Organization [facility] Address [address] [place] [address] Care Team Providers Care Sales Contracts Analyst Name Role Phone Mark Lozada Primary Care Provider [phone] Migration, Provider Unavailable Unavailable Allergies Allergen (clinical drug ingredient) Drug/Non Drug Allergy documented on EMR Reaction Allergy Type Onset Date Status E-MYCIN (uncoded) Unknown Allergy Ac tive LEVAQUIN (uncoded) Unknown Allergy Active MIRAPEX (uncoded) causes headaches Allergy Active sumatriptan Imitrex headache Drug Allergy Activ e acetaminophen / oxycodone Percocet decreases hr Drug Allergy Active misoprostol Cytotec Unknown Drug Allergy Activ e Penicillin Unknown Drug Allergy Active REASON FOR VISIT [facility] Conversion Encounter Medications Medication SIG (Take, Route, Frequency, Duration) Notes Start Date End Date Status Paxil 40 MG 1 tab(s) orally once a day; Duration: 90 days Active Synthroid 50 MCG 1 tab(s) orally once a day; Duration: 30 Active Gabapentin 100 MG 1 cap orally 3 times a day as needed; Duration: 30 days 11/03/2024 Active Tnlmauhplv-Phrxfde-I affeine 50-325-40 MG 1 cap(s) orally every 6 hours prn; Duration: 30 days 05/23/2024 Active Colchicine 0.6 MG take 1 tablet orally twice a day; Duration: 30 days prn Active ESGIC-PLUS 500 MG-50 MG-40 MG 1 TAB(S) ORALLY Q6HR PRN; Duration: 30 DAYS *Please review for potential replacement for e-prescription and drug interaction check* Active Esomeprazole Magnesium 20 MG TAKE 1 CAPSULE BY MOUTH EVERY DAY; Duration: 90 Active Allopurinol 300 MG 1 tab(s) orally once a day; Duration: 30 days Active Acyclovir 800 MG 1 tab(s) orally daily; Duration: 90 days Active Synthroid 50 MCG 1 tab(s) orally once a day; Duration: 30 Active Metoprolol Tartrate 25 MG 1 tab oral at bed; Duration: 30 days Active Nitrostat 0.4 MG 1 tab(s) sublingually every 5 minutes prn; Duration: 30 Active Lasix 40 MG 1 tab(s) orally every other day Active Atorvastatin Calcium 40 MG 1 tab(s) orally once a day Active Ondansetron 4 MG 1 tab(s) orally 3 times a day prn; Duration: 3 days 05/04/2020 Active Benadryl Allergy 25 MG 1 tab(s) orally prn Active MULTI-DAY PLUS MINERALS MULTIPLE VITAMINS WITH MINERALS 1 TAB(S) ORALLY ONCE A DAY *Please review for potential replacement for e-prescription and drug interaction check* Active Vitamin D3 25 MCG (1000 UT) 1 tab(s) orally once a day; Duration: 30 days Active Aspirin 81 MG 1 TAB(S) ORALLY ONCE A DAY; Duration: 90 DAYS *Please review and pick correct strength-formulati on from [place] options. If intended option is not shown, discontinue and re-order from Quick Search* Active VITAMIN B-50 VITAMIN B COMPLEX 1 TAB(S) ORALLY ONCE A DAY *Please review for potential replacement for e-prescription and drug interaction check* Active Melatonin 10 MG 1 cap(s) orally once a day (at bedtime) Active Tums bid *Please revi ew and pick correct strength-formulati on from [place] options. If intended option is not shown, discontinue and re-order from Quick Search* Active Encounters Encounter Location Date Provider Diagnosis [facility] [address] [place] [address] 11/29/2024 Provider Migration Plan Of Treatment Medication Medication Name Sig Start Date Stop Date Notes Gabapentin 100 MG 1 cap orally 3 times a day as needed; Duration: 30 days 11/03/2024 Next Appt Details Provider Name:Mark Lozada, 04/01/2025 10:30:00 AM, [address], [address], [place], [address], Progress Notes * Naty CAMPOS WDOB:[birth year] (80 yo F)Acc No.[id number]:11/29/2024 Patient: Naty HAY Provider: Mackenzie alvarez Migration :1945 A ge:79 Y S ex:Female Date:11/29/2024 Address:[address] [place] [address], [place], [id number] Pcp:Mark Lozada Subjective: * Chief Complaints: * 1 . Multum To Medispan Conversion Encounter. * Medical History: * Medications: T aking Tums , Notes to Pharmacist: bid *Please review and pick correct strength-formulation from Medispan options. If intended option is not shown, discontinue and re-order from Quick Search*, Taking Melatonin 10 MG Capsule 1 cap(s) orally once a day (at bedtime) , Taking MULTI-DAY PLUS MINERALS MULTIPLE VITAMINS WITH MINERALS TABLET 1 TAB(S) ORALLY ONCE A DAY , Notes to Pharmacist: *Please review for potential replacement for e-prescription and drug interaction check*, Taking Benadryl Allergy 25 MG Tablet 1 tab(s) orally prn , Taking VITAMIN B-50 VITAMIN B COMPLEX TABLET 1 TAB(S) ORALLY ONCE A DAY , Notes to Pharmacist: *Please review for potential replacement for e-prescription and drug interaction check*, Taking Aspirin 81 MG TABLET 1 TAB(S) ORALLY ONCE A DAY , Notes to Pharmacist: *Please review and pick correct strength-formulation from Medispan options. If intended option is not shown, discontinue and re-order from Quick Search*, Taking Vitamin D3 25 MCG (1000 UT) Tablet 1 tab(s) orally once a day , Taking Atorvastatin Calcium 40 MG Tablet 1 tab(s) orally once a day , Taking Lasix 40 MG Tablet 1 tab(s) orally every other day , Taking Nitrostat 0.4 MG Tablet Sublingual 1 tab(s) sublingually every 5 minutes prn , Taking Metoprolol Tartrate 25 MG Tablet 1 tab oral at bed , Taking Ondansetron 4 MG Tablet Disintegrating 1 tab(s) orally 3 times a day prn , Taking Esomeprazole Magnesium 20 MG Capsule Delayed Release TAKE 1 CAPSULE BY MOUTH EVERY DAY , Taking ESGIC-PLUS 500 MG-50 MG-40 MG CAPSULE 1 TAB(S) ORALLY Q6HR PRN , Notes to Pharmacist: *Please review for potential replacement for e-prescription and drug interaction check*, Taking Synthroid 50 MCG Tablet 1 tab(s) orally once a day , Taking Acyclovir 800 MG Tablet 1 tab(s) orally daily , Taking Allopurinol 300 MG Tablet 1 tab(s) orally once a day , Taking Colchicine 0.6 MG Tablet take 1 tablet orally twice a day , Notes to Pharmacist: prn, Taking Fspfzwerby-Mywxfkg-Skslanwu 50-325-40 MG Capsule 1 cap(s) orally every 6 hours prn , Taking Synthroid 50 MCG Tablet 1 tab(s) orally once a day , Taking Paxil 40 MG Tablet 1 tab(s) orally once a day * Allergies: P enicillin, E-MYCIN, Cytotec, Percocet: decreases hr, Imitrex: headache, MIRAPEX: causes headaches, LEVAQUIN. Objective: * Vitals: Assessment: Plan: * Treatment: * * Electronic signature of Prov ider Migration on 03/31/2025 at 03:06 PM EDT Sign off status: Pending * Provider: Mackenzie alvarez Migration Date: 0 11/29/2024 Generated for Adolph hernandez/Kristi/Estee on: 0 03/31/2025 03:06 PM EDT
--- OUTSIDE RECORDS SUMMARY | 2025-03-25 06:00 | XMS_ITS ---
Author Organization [facility] Address [address] [facility] [address] [facility] [address] [place], [place] [address] Care Team Providers Care Loan Processor Name Role Phone Mark Lozada Primary Care Provider [phone] REASON FOR VISIT MRI- Neurology Encounters Encounter Location Date Provider Diagnosis [facility] [address] [facility] [address] [place], [place] [address] 03/25/2025 Mark Lozada Recurrent headache R51.9 Assessments Encounter Date Diagnosis (ICD Code) Assessment Notes Treatment Notes Treatment Clinical Notes Section Notes 03/25/2025 Recurrent headache (ICD-10 - R51.9) Plan Of Treatment Pending Test Test Name Order Date MRI BRAIN WO 03/25/2025 Next Appt Details Provider Name:Mark Lozada, 04/01/2025 10:30:00 AM, [address] [facility], [address], [place], [place], [address], Progress Notes * Naty CAMPOS WDOB:[birth year] (80 yo F)Acc No.[id number]:03/25/2025 Patient: Gael Naty TANNER :1945 A ge:80 Y S ex:Female Address:[address], [place] [address] Subjective: * Chief Complaints: * M RI- Neurology * Medical History: * Surgical History: * Hospitalization/Major Diagno stic Procedure: * Medications: Objective: * Vitals: * Physical Examination: Assessment: * Assessment: 1. R ecurrent headache - R51.9 Plan: * Treatment: * Procedure Codes: * true * Date: Generated for Adolph hernandez/Kristi/Estee on: 0 03/31/2025 03:07 PM EDT
--- NOTE | 2025-03-31 15:01 | MR_ITS ---
PROCEDURE INFORMATION: Exam: MR Head Without Contrast Exam date and time: 03/31/2025 3:56 PM Age: 80 years old Clinical indication: Pain; Headache; Additional info: Headaches. PT stated csf is leaking TECHNIQUE: Imaging protocol: Magnetic resonance imaging of the head without contrast. COMPARISON: MR ANGIO HEAD WO CON 04/18/2023 8:16 AM FINDINGS: Brain: Images are mildly motion degraded. No obvious encephalocele or abnormal fluid collections. No evidence of dural thickening or sagging of the brainstem. No acute infarct identified on the diffusion-weighted imaging. No evidence of brain parenchymal edema or intracranial mass effect. The brain demonstrates mild, age commensurate volume loss. The T2 weighted imaging demonstrates foci of increased signal intensity in the deep and subcortical white matter as well as joellen most likely representing mild chronic small vessel ischemic change. Cerebral ventricles: The ventricles are mildly enlarged in keeping with volume loss. Bones: Unremarkable. Paranasal sinuses: Trace ethmoid mucosal thickening. Mastoid air cells: Trace left mastoid fluid. Orbital cavities: Thinning of the lenses of the globes consistent with prior lens surgery. Soft tissues: Unremarkable. IMPRESSION: Essentially unremarkable MRI brain for age.
--- NOTE | 2025-03-31 15:02 | MR_ITS ---
PROCEDURE INFORMATION: Exam: MR Cervical Spine Without Contrast Exam date and time: 03/31/2025 3:56 PM Age: 80 years old Clinical indication: Pain; Cervicalgia; Additional info: Cervicalgia/recurrent headache. PT stated csf is leaking TECHNIQUE: Imaging protocol: Magnetic resonance imaging of the cervical spine without contrast. COMPARISON: CT CERVICAL SPINE WO CON 07/13/2022 2:39 AM FINDINGS: Bones/joints: 2 mm of grade 1 degenerative anterolisthesis of C7 on T1. No acute fracture seen. Edema in the right C2-C3 articular facets with periarticular soft tissue edema, likely inflammatory related to advanced facet arthropathy. Spinal cord: Normal signal. No cord compression. C2-C3: Mhfr-mz-kjvothxa disc height loss and spondylosis from C2-C3 through C6-C7. Disc osteophyte complex and ligamentum flavum buckling causing mild central spinal canal stenosis. No significant foraminal stenoses. C3-C4: Disc osteophyte complex and ligamentum flavum buckling causing zvhd-bm-cgeasove central spinal canal stenosis. Uncovertebral and facet arthropathy probably causing moderate to severe bilateral neural foraminal stenoses. C4-C5: Disc osteophyte complex and ligamentum flavum buckling causing moderate central spinal canal stenosis. Uncovertebral and facet arthropathy causing severe right and moderate to severe left neural foraminal stenoses. C5-C6: Disc osteophyte complex and ligamentum flavum buckling causing moderate central spinal canal stenosis. Uncovertebral and facet arthropathy causing moderate to severe bilateral neural foraminal stenoses. C6-C7: Disc osteophyte complex causing mild central spinal canal stenosis. Uncovertebral and facet arthropathy causing moderate left and no significant right neural foraminal stenoses. C7-T1: Slight anterolisthesis. The central spinal canal is patent. Facet arthropathy causing mild left and no significant right neural foraminal stenoses. Soft tissues: Unremarkable. Vasculature: Expected flow voids in the vertebral arteries. IMPRESSION: 1. Images are motion degraded. 2. Multilevel central spinal canal and foraminal stenoses, detailed above.
--- OUTSIDE RECORDS SUMMARY | 2025-03-31 15:06 | XMS_ITS | Patient Health Record ---
Author Organization [facility] Address [address] [place] [address] Care Team Providers Care Supply Chain Generalist Name Role Phone Mark Lozada Primary Care Provider Migration, Provider Unavailable Unavailable Allergies Allergen (clinical [...] Activ e Penicillin Unknown Drug Allergy Active Results Component Value Reference Range Notes H-IPTH Reviewed date:04/17/2024 02:26:56 PM Interpretation: Performing Lab: Notes/Report: PTHINT 146.0 7.5-53.5 pg/mL M-Thyroid Stimulating Hormon e Reviewed date:04/17/2024 02:26:03 PM Interpretation: Performing Lab: Notes/Report: TSH 2.66 0.465-4.68 uIU/mL --- 04/16/24 1535 --- TSH previously reported as: 2.59 uIU/mL M-Lipid Panel Reviewed date:04/17/2024 02:26:26 PM Interpretation: Performing Lab: Notes/Report: Patient Fasting? N TRIG 148 30-150 mg/dl CHOL 148 140-200 mg/dl DLDL 51.79 100-129 mg/dL VLDL 30 0-40 mg/dL HDL 55 40-60 mg/dl CHLHDL 2.7 1-3.5 M-Comprehensive Metabolic Pa yoana Reviewed date:04/17/2024 02:26:18 PM Interpretation: Performing Lab: Notes/Report: NA 139 136-145 mmol/L K 4.5 3.5-5.1 mmoL/L CL 108 98-107 mmol/L CO2 26 22.0-30.0 mmol/L GAP 9.5 5-15 mEq/L BUN 21 7-17 mg/dl CREATT 1.30 0.52-1.04 mg/dl GFRAA 48 >60 ML/MIN EGFR 40 >60 ml/min GLU 74 74-100 mg/dl CA 8.8 8.4-10.2 mg/dl BILIT 0.4 0.2-1.3 mg/dl AST 36 14-36 U/L ALT 18 12-78 U/L TP 6.3 6.3-8.2 g/dl ALB 3.4 3.5-5.0 g/dl GLOB 2.9 1.3-3.2 g/dL AGRATIO 1.2 1.1-1.8 ALP 110 38-126 U/L M-Complete Blood Count Auto Diff Reviewed date:04/17/2024 02:26:11 PM Interpretation: Performing Lab: Notes/Report: WBC 5.3 4.8-10.8 K/mm3 RBC 4.08 4.20-5.40 M/mm3 HGB 12.2 12.2-16.2 g/dL HCT 39.0 37.0-47.0 % MCV 95.6 81-99 fl MCH 29.9 27.0-31.2 pg MCHC 31.3 31.8-35.4 g/dL RDW 14.4 11.5-17.5 % PLT 273 142-424 K/mm3 MPV 8.7 7.4-10.4 fl NE% 64.2 37.0-80.0 % LY% 19.4 10-50 % MO% 7.8 1.7-9.3 % EO% 6.6 0.1-12.0 % BA% 2.0 0.1-2.0 % NE# 3.4 1.8-7.8 K/mm3 LY# 1.0 0.7-4.5 K/mm3 MO# 0.4 0.1-1.0 K/mm3 EO# 0.4 0.0-0.4 K/mm3 BA# 0.1 0-0.2 K/mm3 Medications Medication SIG (Take, Route, Frequency, Duration) Notes Start Date End Date Status Metoprolol Tartrate 25 MG 1 tab oral at bed; Duration: 30 days Active Nitrostat 0.4 MG 1 tab(s) sublingually every 5 minutes prn; Duration: 30 Active Paxil 40 MG 1 tab(s) orally once a day; Duration: 90 days Active Lasix 40 MG 1 tab(s) orally every other day Active Atorvastatin Calcium 40 MG 1 tab(s) orally once a day Active Stifwytywd-Ikjcxkg-O affeine 50-325-40 MG 1 cap(s) orally every 6 hours prn; Duration: 30 days 05/23/2024 Active Benadryl Allergy 25 MG 1 tab(s) orally prn Active MULTI-DAY PLUS MINERALS MULTIPLE VITAMINS WITH MINERALS 1 TAB(S) ORALLY ONCE A DAY *Please review for potential replacement for e-prescription and drug interaction check* Active ESGIC-PLUS 500 MG-50 MG-40 MG 1 TAB(S) ORALLY Q6HR PRN; Duration: 30 DAYS *Please review for potential replacement for e-prescription and drug interaction check* Active Acyclovir 800 mg TAKE ONE TABLET BY MOUTH DAILY; Duration: 90 Active Melatonin 10 MG 1 cap(s) orally once a day (at bedtime) Active Esomeprazole Magnesium 20 MG TAKE 1 CAPSULE BY MOUTH EVERY DAY; Duration: 90 Active Tums bid *Please revi ew and pick correct strength-formulati on from [employer] options. If intended option is not shown, discontinue and re-order from Quick Search* Active Ondansetron 4 MG 1 tab(s) orally 3 times a day prn; Duration: 3 days 05/04/2020 Active Synthroid 50 MCG 1 tab(s) orally once a day; Duration: 30 Active Vitamin D3 25 MCG (1000 UT) 1 tab(s) orally once a day; Duration: 30 days Active Colchicine 0.6 MG take 1 tablet orally twice a day; Duration: 30 days prn Active Gabapentin 100 MG 1 cap orally 3 times a day as needed; Duration: 30 days 02/17/2025 Active Aspirin 81 MG 1 TAB(S) ORALLY ONCE A DAY; Duration: 90 DAYS *Please review and pick correct strength-formulati on from [employer] options. If intended option is not shown, discontinue and re-order from Quick Search* Active Allopurinol 300 MG 1 tab(s) orally once a day; Duration: 30 days Active VITAMIN B-50 VITAMIN B COMPLEX 1 TAB(S) ORALLY ONCE A DAY *Please review for potential replacement for e-prescription and drug interaction check* Active Immunizations Vaccine Route Administration Date Status Comme nts Zostavax (Shingles) SC Subcutaneous 07/14/2016 Administere d SHINGRIX IM Intramuscular 06/11/2023 Administered SHINGRIX IM Intramuscular 02/25/2024 Administered PPD ID Intradermal 01/04/2011 Administered Pneumovax 23 IM Intramuscular 07/14/2016 Administered Hepatitis B (#3) IM Intramuscular 07/12/2011 Administered Hep B Adult (#2) IM Intramuscular 02/06/2011 Administered Hep B Adult (#1) IM Intramuscular 01/04/2011 Administered Fluvirin--Influenza vaccine 3+ year IM Intramuscular 06/05/2008 Administered Fluvirin--Influenza vaccine 3+ year IM Intramuscular 07/12/2010 Administered Fluvirin--Influenza vaccine 3+ year IM Intramuscular 05/31/2011 Administered Fluvirin--Influenza vaccine 3+ year IM Intramuscular 06/06/2012 Administered Fluvirin--Influenza vaccine 3+ year IM Intramuscular 05/25/2014 Administered Covid Moderna Unknown 08/30/2020 Administered Covid Moderna Unknown 09/27/2020 Administered Covid Moderna Unknown 06/30/2021 Administered Boostrix IM Intramuscular 02/25/2024 Administered Adacel (Tdap) IM Intramuscular 01/04/2011 Administered Problems Problem Type SNOMED Code ICD Code Onset Dates Problem Status W/U Status Risk Notes Problem Cervicalgia (90736127) Cervicalgia (M54.2) Active confirmed Problem Headache (54022846) Headache (R51) Active confi rmed Problem Hypertension (08427411) Hypertension (I10) Active confirmed Problem Hyperlipidemia (25524921) Hyperlipemia, idiopathic familial (E78.5) Active confirmed Problem Gastroesophageal reflux disease without esophagitis (666498069) Gastroesophageal reflux disease without esophagitis (K21.9) Active confirmed Problem Atherosclerotic hear t disease of [place] coronary artery without angina pectoris (833309825543253) Coronary artery disease involving [place] coronary artery of [place] heart without angina pectoris (I25.10) Active confirmed Problem Acquired hypothyroidism (910993154) Acquired hypothyroidism (E03.9) Active confirmed Problem Gouty arthritis (93265437) Gouty arthritis (M10.9) Active confirmed Problem Hypothyroidism (70109806) Hypothyroidism, unspecified type (E03.9) Active confirmed Problem Localized, primary osteoarthritis of the pelvic region and thigh (131341449) Primary osteoarthritis of both hips (M16.0) Active confirmed Problem Recurrent major depression in remission (09849913) Recurrent major depressive disorder, in partial remission (F33.41) Active confirmed Problem Moderate recurrent major depression (09173119) Moderate episode of recurrent major depressive disorder (F33.1) Active confirmed Problem Stable angina due to coronary arteriosclerosis (disorder) (75208465019339134) Atherosclerosis of [place] coronary artery of [place] heart with stable angina pectoris (I25.119) Active confirmed Problem History of pulmonary embolus (781023919) History of pulmonary embolism (Z86.711) Active confirmed Problem Carpal tunnel syndrome of left wrist (998690391862130) Carpal tunnel syndrome of left wrist (G56.02) Active confirmed Problem Adult health examination (839543576) Healthcare maintenance (Z00.00) Active confirmed Problem Osteoarthritis of knee (202107741) Localized osteoarthritis of knees, bilateral (M17.0) Active confirmed Problem Tinnitus of left ear (0255998972517) Tinnitus of left ear (H93.12) Active confirmed Problem Hyperparathyroidism (67921289) Hyperparathyroidism (E21.3) Active confirmed Problem Hyperlipidemia (84845656) Other hyperlipidemia (E78.49) Active confirmed Problem Chronic kidney disease stage 3B (disorder) (250604227) Stage 3b chronic kidney disease (N18.32) Active confirmed Problem Ringing in left ear (1481071691999) Ringing in left ear (H93.12) Active confirmed Vital Signs Heart Rate 68 /min 10/22/2024 Temperature 97.8 degrees Fahrenheit 10/22/2024 Blood pressure diastolic 60 mm Hg 10/22/2024 Height 5 ft 9 in in 10/22/2024 Blood pressure systolic 122 mm Hg 10/22/2024 Weight 167.8 lbs 10/22/2024 BMI 24.78 kg/m2 10/22/2024 Encounters Encounter Location Date Provider Diagnosis [facility] [address] [place] [address] 11/29/2024 Provider Migration [facility] [address] [place] [address] 10/22/2024 Mark Besson Recurrent headache R 51.9 and Tinnitus of left ear H93.12 [facility] [address] [place] [address] 04/03/2024 Mark Besson [facility] [place] [address] [address] 04/07/2024 Mark Besson Acquired hypothyroid ism E03.9 ; Hyperlipemia, idiopathic familial E78.5 ; Atherosclerosis of [place] coronary artery of [place] heart with stable angina pectoris I25.119 and Hyperparathyroidism E21.3 [facility] [place] [address] [facility] [address] [place] [address] 05/08/2024 Mark Besson Gouty arthritis M10. 9 [facility] [address] [facility] [address] [place] [address] 10/03/2024 Mark Besson [facility] [address] [place] [address] 10/16/2024 Mark Besson [facility] [address] [place] [address] 11/12/2024 Mark Besson [facility] [address] [place] [address] 12/02/2024 Mark Besson [facility] [address] [place] [address] 03/05/2025 Mark Besson [facility] [address] [place] [address] 03/25/2025 Mark [place] Recurrent headache R 51.9 [facility] [address] [facility] [address] [place] [address] 03/25/2025 Mark [place] Cervicalgia M54.2 an d Recurrent headache R51.9 Assessments Encounter Date Diagnosis (ICD Code) Assessment Notes Treatment Notes Treatment Clinical Notes Section Notes 04/07/2024 Hyperlipemia, idiopathic familial (ICD-10 - E78.5) 04/07/2024 Acquired hypothyroidism (ICD-10 - E03.9) 05/08/2024 Gouty arthritis (ICD-10 - M10.9) 10/22/2024 Tinnitus of left ear (ICD-10 - H93.12) Follow with neuro.Exam really normal, seems to be more of a serous otitis problem rather than an actual pulsatile tinnitus problem, once again follow-up after neurology 10/22/2024 Recurrent headache (ICD-10 - R51.9) Continue medications. Follow-up in 4 months. Patient continues to use butalbital nightly. I think neurology referral is a good idea, I am unsure about the relationship of her drainage to her head injury although she thinks this is very closely related. Will certainly appreciate neurology input on this 03/25/2025 Recurrent headache (ICD-10 - R51.9) 03/25/2025 Cervicalgia (ICD-10 - M54.2) 03/25/2025 Recurrent headache (ICD-10 - R51.9) 04/07/2024 Atherosclerosis of [place] coronary artery of [place] heart with stable angina pectoris (ICD-10 - I25.119) 04/07/2024 Hyperparathyroidism (ICD-10 - E21.3) Plan Of Treatment Pending Test Test Name Order Date H-CRP 01/25/2009 Colonoscopy 02/11/2013 EKG : In House 08/01/2007 Echocardiogram 06/18/2009 Physical Therapy 04/09/2013 Mammogram : Bilateral 07/14/2016 Occupational Therapy : Eval & Treatment 01/14/2018 N-antithyroperoxidase antibodies 007 H-CBC with AUTO DIFF 05/19/2016 H-CBC with AUTO DIFF 05/11/2017 H-CMP 05/11/2017 H-CMP 05/19/2016 H-LIPID PANEL 05/11/2017 H-TSH 05/11/2017 H-TSH 09/15/2010 H-FLUORESCENT TREP ANTIBODY ABS 01/26/20 09 H-FLUORESCENT TREP ANTIBODY ABS 01/24/20 09 H-SED RATE 01/23/2009 H-DOMENICA PROFILE 01/23/2009 A-P-QSOKJXOB PROTEIN 01/23/2009 H-CCCP 01/23/2009 H-CCCP 01/25/2009 C-CCP IGG Antibodies 05/19/2008 M-Complete Blood Count Auto Diff 018 M-Complete Blood Count Auto Diff 024 M-Comprehensive Metabolic Panel 06/18/20 M-Comprehensive Metabolic Panel 04/07/20 24 M-Lipid Panel 04/07/2024 M-Lipid Panel 06/18/2018 M-Thyroid Stimulating Hormone 04/07/2024 M-Parathyroid Hormone Intact 04/07/2024 MRI : Cervical spine without contrast NUCLEAR MED : Parathyroid scan NUCLEAR MED : Parathyroid scan MRI BRAIN WO 03/25/2025 Future Test Test Name Order Date H-PT/INR 06/28/2009 H-PT/INR 07/09/2009 Next Appt Details Provider Name:Mark Lozada, 04/01/2025 10:30:00 AM, [address], [place], [address], Insurance Providers Payer Name Payer Address Payer Phone Subscriber Number Group Number Insured Name Patient Relationship to Insured Coverage Start Date Coverage End Date [facility] [address] [address] [place] [address] [phone] [id number] Naty Avila Self - patient is the insured Medications Administered Medication Instructions Date of Administration Dosage Notes Ceftriaxone 500 04/09/2013 500 mg Kenalog 40mg 12/12/2017 40 mg Kenalog 04/09/2013 1 Medical (General) History Medical History History ICD Code Anxiety disorder migraine headache hormone replacement therapy dermatitis polymyalgia rheumatica PE Hepatitis A [place] Shingles Hyperlipidemia Hypothyroid Stage 3 kidney disease tinnitus, hearing loss in left ear EGD with spasm and dilation 04/14 - biops y with gastritis and esophagitis GERD Colonoscopy 05/17 with mild s igmoind diverticulosis - no polyps - biopsy with lymphocytic colitis Covid Lyme disease Normal mammogram 10/18 Surgical History Surgery Date(Month/Year) sinus surgery 1997 Ligament repair left ankle 1987 Total Hysterectomy 1994 Basal cell carcinoma removed on nasal br idge Tubal ligation Heart stent 12/2015 Cardiac Cath 01/2017 Cardiac Cath 02/2018 bilateral ear tubes 04/2018 EGD 2018 Colonoscopy 01/2021 Hospitalization History Reason Date(Month/Year) Viral infection Childbirth x2 Hepatitis A at age [age] years old PE/DVT 2009
--- OUTSIDE RECORDS SUMMARY | 2025-03-31 15:06 | XMS_ITS | Encounter Summary ---
Author Organization Healthcare Address [address] [place] [address] Care Team Providers Care Mangle Feeder Name Role Phone Mark Lozada MD Primary Care Provider [phone] Reason for Referral * Consultation (Routine) - Closed Specialty Diagnoses / Procedures Referred By Contana paula t Referred To Contact Nephrology Diagnoses Elevated PTHrP level Dang Arora APRN [address] [address] Phone: tel: fax: [address] [address] Phone: tel: fax: Referral ID Status Reason Start Date Expiration Date V isits Requested Visits Authorized [id number] Closed Specialty Services Required 04/17/2024 10/17/2025 1 1 Encounter Details Date Type Department Care Team (Late st Contact Info) Description 04/17/2024 Community [facility] [address] [place] [address] Dang Arora APRN [address] [phone] Elevated PTHrP level (Primary Dx) Social History Tobacco Use Types Packs/Day Years Used Date Smoking Tobacco: Never Passive Smoke Exposure: Never Smokeless Tobacco: Never Alcohol Use Standard Drinks/Week Comments Never 0 (1 standard drink = 0.6 oz pur e alcohol) PHQ-2 Answer Date Recorded Patient Health Questionnaire-2 Score 4 01/01/2023 PHQ-9 Answer Date Recorded Patient Health Questionnaire-9 Score 15 01/01/2023 PHQ-2A Answer Date Recorded Patient Health Questionnaire-2 Score 4 01/01/2023 Comments Unknown Sex and Gender Information Value Date Recorded Sex Assigned at Female 03/03/2024 10:29 AM EDT Legal Sex Female 8:03 PM EDT Gender Identity Female 03/03/2024 10:29 AM EDT Sexual Orientation Straight 03/03/2024 10 :29 AM EDT documented as of this encounter Plan of Treatment Upcoming Encounters Date Type Department Care Team (Late st Contact Info) Description 08/18/2025 11:00 AM EST Consult [place] [facility] [address] [place] [address] Chase Sanchez MD [address] [place] [address] Scheduled Referrals Name Type Priority Associated Diagnoses Order Schedule Ambulatory referral to Nephrology Outpatient Referral Routine Elevated PTHrP level Ordered: 04/17/2024 documented as of this encounter Visit Diagnoses Diagnosis Elevated PTHrP level- Primary documented in this encounter Additional Health Concerns Assessment Noted Time PHQ-9 Depression Total Score: 15 023 3:03 PM EDT A fall risk assessment has been complete d for the patient 01/01/2023 3:10 PM EDT A Body Mass Index follow-up plan has been documented for the patient 03/06/2024 2:54 PM EDT documented as of this encounter Care Teams Mangle Feeder Relationship Specialty Start Date End Date Mark Lozada MD [address] [place] [address] PCP - General 01/07/21 documented as of this encounter
--- OUTSIDE RECORDS SUMMARY | 2025-03-31 15:06 | XMS_ITS | Encounter Summary ---
Author Organization Healthcare Address [address] [place] [address] Care Team Providers Care Sales Development Associate Name Role Phone Mark Lozada MD Primary Care Provider + [phone] Encounter Details Date Type Department Care Team (Late st Contact Info) Description 03/17/2025 Community [facility] [address] [place] [address] Mark Lozada MD [address] [place] [phone] Social History Tobacco Use Types Packs/Day Years [...] Patient Health Questionnaire-2 Score 4 01/01/2023 Comments No Sex and Gender Information Value Date Recorded [...] Consult [place] [facility] [address] [place] [address] Chase Sanchez MD [address] [place] [address] documented as of this encounter Visit Diagnoses Not on filedocumented in this encounter Additional Health Concerns Assessment Noted Time PHQ-9 Depression Total Score: 15 023 3:03 PM EDT A fall risk assessment has been complete d for the patient 01/01/2023 3:10 PM EDT A Body Mass Index follow-up plan has been documented for the patient 10/09/2024 9:07 PM EST documented as of this encounter Care Teams Sales Development Associate Relationship Specialty Start Date End Date Mark Lozada MD [address] [place] [address] PCP - General 01/07/21 documented as of this encounter
--- OUTSIDE RECORDS SUMMARY | 2025-03-31 15:06 | XMS_ITS | Encounter Summary ---
Author Organization [facility] Address [address] 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 Stage 3b chronic kidney disease (CMS/HCC) Arteriosclerosis of coronary artery Essential hypertension Hyperparathyroidism, secondary renal ([facility]) Renal osteodystrophy Mark Lozada MD [address] [facility] [address] [address] Phone: tel: fax: [facility] [address] [address] Phone: tel: fax: Referral ID Status Reason Start Date Expiration Date Visits Requested Visits Authorized [id number] Authorized Specialty Services Required 10/11/2023 04/11/2025 1 1 Encounter Details Date Type Department Care Team (Latest Contact Info) Description 10/11/2023 Community [facility] [address] [place] [address] Mark Lozada MD [address] [facility] [address] [place] [address] 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 (Primary Dx); Stage 3b chronic kidney disease (CMS/HCC); Arteriosclerosis of coronary artery; Essential hypertension; Hyperparathyroidism, secondary renal (CMS/HCC); Renal osteodystrophy Social History Tobacco Use Types Packs/Day Years [...] Consult [place] [facility] [address] [place] [address] Chase Sanchez MD [address] [place] [address] Scheduled Referrals Name Type Priority Associated Diagnoses Orde r Schedule Ambulatory referral to Nephrology Outpatient Referral Routine 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 Stage 3b chronic kidney disease (CMS/HCC) Arteriosclerosis of coronary artery Essential hypertension Hyperparathyroidism, secondary renal (CMS/HCC) Renal osteodystrophy Ordered: 10/11/2023 documented as of this encounter Visit Diagnoses Diagnosis 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- Primary Stage 3b chronic kidney disease (CMS/HCC) Arteriosclerosis of coronary artery Essential hypertension Unspecified essential hypertension Hyperparathyroidism, secondary renal (CMS/HCC) Secondary hyperparathyroidism (of renal origin) Renal osteodystrophy documented in this encounter Additional Health Concerns Assessment Noted Time PHQ-9 Depression Total Score: 15 023 3:03 PM EDT A fall risk assessment has been complete d for the patient 01/01/2023 3:10 PM EDT documented as of this encounter Care Teams Histology Specialist Relationship Specialty Start Date End Date Mark Lozada MD [address] [place] [address] PCP - General 01/07/21 documented as of this encounter
--- OUTSIDE RECORDS SUMMARY | 2025-03-31 15:07 | XMS_ITS | Clinical Summary ---
Author Organization [facility] Address [address] [place] [address] Care Team Providers Care Casino Manager Name Role Phone Mark Lozada MD Primary Care Provider + [phone] Allergies Active Allergy Reactions Criticality Noted Date Comments Azithromycin Itching,Unknown - Patient states they do not know rxn details Medium 06/01/2014 Diclofenac Shortness of breath High 07/06/2009 Erythromycin Hives Medium 06/01/2014 Levofloxacin Unknown - Patient states they do not know rxn details Low 07/06/2009 Severe Headache Misoprostol Shortness of breath,Unknown - Patient states they do not know rxn details High 06/01/2014 This MA reviewed these allergies with the patient and she is unaware of what medication this is and if she is allergic or not. Oxycodone Unknown - Patient states they do not know rxn details Low 06/01/2014 Slow heart rate Penicillins Hives,Unknown - Julieth ent states they do not know rxn details Medium 06/01/2014 Medications * This document contains information received from the source organization and may not represent a complete record from that organization. B [id number] A (VITAMIN B50 COMPLEX PO) 6 Active Aspirin Buf,CaCarb-MgCar b-MgO, 81 MG tablet 1 (one) time each day. 4 Active cholecalciferol (Vitamin D-3) 25 MCG (1000 UT) capsule 6 Active nitroglycerin (Nitrostat) 0.4 MG SL tablet DISSOLVE 1 TABLET UNDER THE TONGUE NEEDED FOR CHEST PAIN. 4 Active metoprolol tartrate (Lopressor) 25 MG tablet TAKE 0.5 TABLET Twice daily 4 Active gabapentin (Neurontin) 100 MG capsule 3 (three) times a day if needed. 5 Active PARoxetine (Paxil) 40 MG tablet TAKE 1 TABLET DAILY. 4 Active levothyroxine (Synthroid, Levoxyl) 50 MCG tablet TAKE 1 TABLET DAILY DIRECTED. 4 Active MILK THISTLE PO Take by mouth every night. Active atorvastatin (Lipitor) 40 MG tablet Take 1 tablet (40 mg) by mouth 1 (one) time each day. Active furosemide (Lasix) 40 MG tablet Take by mouth every other day. Active colchicine 0.6 MG tablet Take by mouth if needed. Active esomeprazole (NexIUM) [address] capsule Take 1 capsule (20 mg) by mouth if needed. Do not open capsule. Active acyclovir (Zovirax) 800 MG tablet Take by mouth. Activ e butalbital-aceta minophen-caffein e (Esgic) 50-325-40 MG capsule Take 1 capsule by mouth every 4 (four) hours if needed. Active isosorbide mononitrate ER (Imdur) 30 MG 24 hr tablet isosorbide mononitrate ER 30 mg tablet,extended release 24 hr TAKE ONE TABLET BY MOUTH EVERY DAY Active cetirizine (ZyrTEC) 10 MG tablet Take 1 tablet (10 mg) by mouth 1 (one) time each day. Active allopurinol (Zyloprim) 100 MG tabletIndication s:Stage 3b chronic kidney disease (CMS/HCC),Chroni c gout due to renal impairment involving toe of left foot without tophus Take 1 tablet (100 mg) by mouth 1 (one) time each day. 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 Date Type Department Care Team Description 03/17/2025 Community [facility] [address] [place] [address] Mark Lozada MD 02/20/2025 Travel from Last 3 Months Immunizations Immunization Administration Dates Next Due Hep B, adult 07/12/2011,02/06/2011,01/04/2011 Influenza, Unspecified 04/17/2024 Influenza, trivalent, adjuvanted 07/02/2024 Pneumococcal, Unspecified 04/17/2024 Tdap 02/25/2024 Zoster, Recombinant 02/25/2024,06/11/2023 Family History Medical History Relation Name Comments Cardiac disorder Brother 1 Hypertension Brother 2 Diabetes type II Brother 3 Cardiac disorder Father Conversions - Other Father Dialysis patient Diabetes type II Father Hypertension Father Kidney disease Father Cardiac disorder Mother Hypertension Mother Kidney disease Mother Diabetes type II Paternal Grandmother Hypertension Son 1 Kidney disease Son 2 Relation Name Status Comments Brother 1 Brother 2 Brother 3 Father Mother Paternal Grandmother Son 1 Son 2 Social History Tobacco Use Types Packs/Day Years Used Date Smoking Tobacco: Never Passive Smoke Exposure: Never Smokeless Tobacco: Never Tobacco Cessation:Counseling Given: No Alcohol Use Standard Drinks/Week Comments Never 0 [...] Orientation Straight 03/03/2024 10 :29 AM EDT Last Filed Vital Signs Vital Sign Reading Time Taken Comments Blood Pressure 123/61 05/23/2024 11:46 AM EDT Pulse 62 05/23/2024 11:46 AM EDT Temperature 36.9 C (98.4 F) 05/23/2024 11:46 AM EDT Respiratory Rate 16 05/23/2024 11:46 AM EDT Oxygen Saturation 97% 05/23/2024 11:46 AM EDT Inhaled Oxygen Concentration - - Weight 77.1 kg (170 lb) 05/23/2024 11:46 AM EDT Height 175.3 cm (5' 9 ) 05/23/2024 11:46 AM EDT Body Mass Index 25.1 05/23/2024 11:46 AM EDT Plan of Treatment Upcoming Encounters Date Type Department Care Team (Late st Contact Info) Description 08/18/2025 11:00 AM EST Consult [place] [facility] [address], [address] [place] [address] Chase Sanchez MD [address] [place] [address] Health Maintenance Due Date Last Done Comments Dental Oral Exam 1945 Dental Prophylaxis 1945 Dental X-Ray: Bitewings 1945 Dental X-Ray: Full Mouth 1947 [facility]-Bone Density Scan 1947 [facility]-Hepatitis C Screening 1945 [facility]-Medicare Annual Wellness (AWV) 1945 [facility]-/Child/Adol SDOH Screenings 1947 [facility]- SDOH Screenings 1965 [facility]-Adult SDOH Screenings 1965 [facility]-Pneumococcal Vaccine: 50+ Years (1 of 1 - PCV) 1997 04/17/2024 [facility]-RSV Vaccine: 60+ Years or (1 - 1-dose 75+ series) 2022 [facility]-Depression Screening 01/02/2024 01/01/2023, 0503/2023 [id number] Vaccine ( - season) 2024 06/30/2021, 09/27/2020, 08/30/2020 [facility]-Influenza Vaccine (#1) 2025 07/02/2024, [facility]-DTaP,Tdap,and Td Vaccines (2 - Td or Tdap) 02/24/2034 02/25/2024 [facility]-Zoster Vaccines Completed 02/25/2024, [facility]-Obesity Intervention Completed 025, 05/23/2024, 03/06/2024, Additional history exists HPV Vaccines Aged Out No longer eligi ble based on patient's age to complete this topic [facility]-HIB Vaccines Aged Out No longer e ligible based on patient's age to complete this topic [facility]-Hepatitis A Vaccines Aged Out No longer eligible based on patient's age to complete this topic [facility]-IPV Vaccines Aged Out No longer e ligible based on patient's age to complete this topic [facility]-Rotavirus Vaccines Aged Out No lo nger eligible based on patient's age to complete this topic Insurance [employer] MEDICARE [facility] Care Teams Casino Manager Relationship Specialty Start Date End Date Mark Lozada MD [address] [place] [address] [facility] - General 01/07/21
--- OUTSIDE RECORDS SUMMARY | 2025-03-31 15:07 | XMS_ITS | Encounter Summary ---
Author Organization Healthcare Address [address] [place] [address] Care Team Providers Care Railroad Firer Name Role Phone Mark Lozada MD Primary Care Provider + [phone] Encounter Details Date Type Department Care Team (Latest Contact Info) Description 02/20/2025 Travel Social History Tobacco Use Types Packs/Day Years [...] Info) Description 08/18/2025 11:00 AM EST Consult [place] [facility] [address], [address] [place] [address] Chase Sanchez MD [address] [place] [address] documented as of this encounter [...] documented as of this encounter Care Teams Railroad Firer Relationship Specialty Start Date End Date Mark Lozada MD [address] [place] [address] PCP - General 01/07/21 documented as of this encounter
--- OUTSIDE RECORDS SUMMARY | 2025-03-31 15:07 | XMS_ITS | Encounter Summary ---
Author Organization [facility] Address [address] 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 Mark Lozada MD [address] [place] [address] Phone: tel: fax: Referral ID Status Reason Start Date Expiration Date Visits Requested Visits Authorized [id number] Authorized Specialty Services Required 10/16/2024 04/17/2026 1 1 Encounter Details Date Type Department Care Team (Latest Contact Info) Description 10/16/2024 Community [facility] [address] [place] [address] Mark Lozada MD [address] [place] [address] Syncope and collapse (Primary Dx); Unspecified visual loss; Concussion w loss of consciousness of unsp duration, init; Headaches due to old head injury; Pulsatile tinnitus of left ear Social History Tobacco Use Types Packs/Day Years [...] Consult [place] [facility] [address], [address] [place] [address] Chase Sanchez MD [address] [place] [address] Scheduled Referrals Name Type Priority Associated Diagnoses Orde r Schedule Ambulatory referral to Neurology Outpatient Referral Routine Syncope and collapse Unspecified visual loss Concussion w loss of consciousness of unsp duration, init 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 Expected: 10/16/2024 (Approximate), Expires: 04/15/2026 documented as of this encounter Visit Diagnoses Diagnosis Syncope and collapse- Primary Unspecified visual loss Concussion w loss of consciousness of unsp duration, init 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
== END 2025-03-31 23:59 | disposition home or self-care (01) ==
LOC: RAD 14:59
PROVIDERS: PCP Internal Medicine Adolescent Medicine; Visit Provider Internal Medicine Adolescent Medicine
DX: M48.02 Spinal stenosis, cervical region (principal); M99.71 Connective tissue and disc stenosis of intervertebral foramina of cervical region; R51.9 Headache, unspecified
CPT/HCPCS: 70551; 72141